=== PATIENT | male | born 1940 | race Caucasian/White ===

== ENCOUNTER 2016-10-10 08:57 | Outpatient (CLI) | payer MEDICARE | END 2016-10-10 08:58 | disposition home or self-care (01) | DX: E11.9 Type 2 diabetes mellitus without complications (principal) ==

== ENCOUNTER 2017-01-10 08:15 | Outpatient (CLI) | payer MEDICARE ==
[2017-01-10 11:06] LABS: BILIRUBIN,URINE NEGATIVE (NEGATIVE); PH,URINE 5.5 PH (5.0-7.5)
[2017-01-10 11:11] LABS: EOSINOPHILS # (AUTO) 0.1 10^3/uL (0.0-0.7); LYMPHOCYTES # (AUTO) 1.1 10^3/uL (1.5-3.5); MONOCYTES # (AUTO) 0.6 10^3/uL (0.0-1.0); NEUTROPHILS # (AUTO) 3.2 10^3/uL (1.5-6.6); RED CELL DISTRIBUTION WIDTH 13.1 % (12.0-15.0)
[2017-01-10 11:14] LABS: EOSINOPHILS % (AUTO) 1.5 %; HGB - HEMOGLOBIN 12.7 g/dL (14.0-18.0); LYMPHOCYTES % (AUTO) 21.5 %; MEAN CORPUSCULAR HEMOGLOBIN 31.8 pg (27.0-31.0); MEAN CORPUSCULAR HGB CONC 34.2 g/dL (32.0-36.0); MEAN CORPUSCULAR VOLUME 92.9 fL (80.0-94.0); MEAN PLATELET VOLUME 8.3 fL (7.4-11.4); MONOCYTES % (AUTO) 11.7 %; NEUTROPHILS % (AUTO) 64.3 %; NUCLEATED RED BLOOD CELLS AUTO 0.1 /100WBC; RED BLOOD COUNT 3.99 10^6/uL (4.70-6.10); UNCORRECTED WHITE BLOOD COUNT 4.9 x10^3/uL; WHITE BLOOD COUNT 4.9 x10^3/uL (4.8-10.8)
[2017-01-10 11:19] LABS: ALBUMIN/GLOBULIN RATIO 1.1 (1.0-2.2); BILIRUBIN,TOTAL 0.6 mg/dL (0.2-1.0); BUN - BLOOD UREA NITROGEN 19 mg/dL (6-20); CALCIUM 9.4 mg/dL (8.5-10.3); CARBON DIOXIDE - CO2 29 mmol/L (21-32); CHLORIDE 100 mmol/L (101-111); CHOL/HDL RATIO 2.7 (<5.0); CHOLESTEROL 118 mg/dL; CREATININE 0.9 mg/dL (0.6-1.2); GFR - MDRD 82 (>89); GLUCOSE 118 mg/dL (70-100); HDL CHOLESTEROL 43 mg/dL; LDL/HDL RATIO 1.3 (<3.6); POTASSIUM 4.2 mmol/L (3.5-5.0); SODIUM 136 mmol/L (135-145); TOTAL PROTEIN 7.6 g/dL (6.7-8.2); TRIGLYCERIDES 86 mg/dL; VLDL CHOLESTEROL 17 mg/dL
[2017-01-10 11:30] LABS: HEMOGLOBIN A1C 0.72 g/dL
[2017-01-10 11:32] LABS: WBC,URINE 0-3 /HPF (0-3)
[2017-01-10 11:33] LABS: UR CULTURE IF IND NOT INDICATED
== END 2017-01-10 08:16 | disposition home or self-care (01) ==
LOC: LAB.F 08:15
PROVIDERS: ATTEND Nurse Practitioner Family
DX: I10 Essential (primary) hypertension (principal); E11.9 Type 2 diabetes mellitus without complications
CPT/HCPCS: 36415; 80053; 80061; 81001; 82043; 82570; 83036; 84443; 85025; 87086

== ENCOUNTER 2017-01-14 10:35 | Outpatient (CLI) | payer MEDICARE ==
[2017-01-14 18:50] LABS: FERRITIN 235.2 ng/mL (23.9-336.2)
[2017-01-14 18:53] LABS: FOLATE 12.6 ng/mL (5.90 - >24.8)
[2017-01-14 19:08] LABS: IRON 56 ug/dL (45-182); TOTAL IRON BINDING CAPACITY 368 ug/dL (250-450); TRANSFERRIN 263 mg/dL (180-329)
== END 2017-01-14 10:36 ==
LOC: LAB.S 10:35
PROVIDERS: ATTEND Nurse Practitioner Family
DX: D64.9 Anemia, unspecified (principal)
CPT/HCPCS: 36415; 82607; 82728; 82746; 83540; 84466

== ENCOUNTER 2017-04-10 08:58 | Outpatient (CLI) | payer MEDICARE ==
[2017-04-10 11:36] LABS: BASOPHILS % (AUTO) 0.4 %; EOSINOPHILS # (AUTO) 0.1 10^3/uL (0.0-0.7); EOSINOPHILS % (AUTO) 1.6 %; HGB - HEMOGLOBIN 12.8 g/dL (14.0-18.0); LYMPHOCYTES # (AUTO) 1.4 10^3/uL (1.5-3.5); MONOCYTES # (AUTO) 0.7 10^3/uL (0.0-1.0); NEUTROPHILS # (AUTO) 3.7 10^3/uL (1.5-6.6)
[2017-04-10 11:40] LABS: HCT - HEMATOCRIT 37.3 % (42.0-52.0); LYMPHOCYTES % (AUTO) 23.6 %; MEAN CORPUSCULAR HEMOGLOBIN 32.1 pg (27.0-31.0); MEAN CORPUSCULAR HGB CONC 34.3 g/dL (32.0-36.0); MEAN CORPUSCULAR VOLUME 93.6 fL (80.0-94.0); MEAN PLATELET VOLUME 7.9 fL (7.4-11.4); NEUTROPHILS % (AUTO) 62.4 %; RED BLOOD COUNT 3.98 10^6/uL (4.70-6.10)
[2017-04-10 12:06] LABS: HEMOGLOBIN A1C 0.71 g/dL
== END 2017-04-10 08:59 | disposition home or self-care (01) ==
LOC: LAB.F 08:58
PROVIDERS: ATTEND Nurse Practitioner Family
DX: E11.9 Type 2 diabetes mellitus without complications (principal)
CPT/HCPCS: 36415; 83036; 85025

== ENCOUNTER 2017-04-12 08:16 | Outpatient (CLI) | payer MEDICARE ==
[2017-04-12 10:54] LABS: IRON 58 ug/dL (45-182); TOTAL IRON BINDING CAPACITY 356 ug/dL (250-450); TRANSFERRIN 254 mg/dL (180-329)
== END 2017-04-12 08:17 | disposition home or self-care (01) ==
LOC: LAB.F 08:16
PROVIDERS: ATTEND Nurse Practitioner Family
DX: D64.9 Anemia, unspecified (principal)
CPT/HCPCS: 36415; 82728; 83540; 84466

== ENCOUNTER 2017-07-15 10:13 | Outpatient (CLI) | payer MEDICARE ==
[2017-07-15 18:34] LABS: BASOPHILS % (AUTO) 0.5 %; EOSINOPHILS # (AUTO) 0.1 10^3/uL (0.0-0.7); EOSINOPHILS % (AUTO) 1.2 %; HCT - HEMATOCRIT 38.9 % (42.0-52.0); HGB - HEMOGLOBIN 12.8 g/dL (14.0-18.0); LYMPHOCYTES # (AUTO) 1.2 10^3/uL (1.5-3.5); LYMPHOCYTES % (AUTO) 20.3 %; MEAN CORPUSCULAR HEMOGLOBIN 30.3 pg (27.0-31.0); MEAN CORPUSCULAR HGB CONC 32.9 g/dL (32.0-36.0); MEAN CORPUSCULAR VOLUME 92.1 fL (80.0-94.0); MEAN PLATELET VOLUME 8.2 fL (7.4-11.4); MONOCYTES # (AUTO) 0.6 10^3/uL (0.0-1.0); NEUTROPHILS # (AUTO) 3.9 10^3/uL (1.5-6.6); NUCLEATED RED BLOOD CELLS AUTO 0.1 /100WBC; RED BLOOD COUNT 4.23 10^6/uL (4.70-6.10); RED CELL DISTRIBUTION WIDTH 12.6 % (12.0-15.0); UNCORRECTED WHITE BLOOD COUNT 5.9 x10^3/uL; WHITE BLOOD COUNT 5.9 x10^3/uL (4.8-10.8)
[2017-07-15 19:55] LABS: HEMOGLOBIN A1C 0.71 g/dL
== END 2017-07-15 10:14 | disposition home or self-care (01) ==
LOC: LAB.S 10:13
PROVIDERS: ATTEND Nurse Practitioner Family
DX: D64.9 Anemia, unspecified (principal); E11.9 Type 2 diabetes mellitus without complications
CPT/HCPCS: 36415; 82728; 83036; 85025

== ENCOUNTER 2017-11-04 08:00 | Outpatient (CLI) | payer MEDICARE ==
[2017-11-04 17:44] LABS: BASOPHILS % (AUTO) 0.6 %; EOSINOPHILS # (AUTO) 0.1 10^3/uL (0.0-0.7); EOSINOPHILS % (AUTO) 1.5 %; HGB - HEMOGLOBIN 12.1 g/dL (14.0-18.0); LYMPHOCYTES # (AUTO) 1.6 10^3/uL (1.5-3.5); LYMPHOCYTES % (AUTO) 28.2 %; MEAN CORPUSCULAR HEMOGLOBIN 29.4 pg (27.0-31.0); MEAN CORPUSCULAR HGB CONC 32.7 g/dL (32.0-36.0); MEAN PLATELET VOLUME 8.8 fL (7.4-11.4); MONOCYTES # (AUTO) 0.7 10^3/uL (0.0-1.0); MONOCYTES % (AUTO) 12.1 %; NEUTROPHILS # (AUTO) 3.2 10^3/uL (1.5-6.6); NEUTROPHILS % (AUTO) 57.6 %; PLT - PLATELET COUNT 211 10^3/uL (130-450); RED BLOOD COUNT 4.11 10^6/uL (4.70-6.10); RED CELL DISTRIBUTION WIDTH 13.5 % (12.0-15.0); WHITE BLOOD COUNT 5.5 x10^3/uL (4.8-10.8)
[2017-11-04 18:02] LABS: HB2 TOTAL 13.3 g/dL; HEMOGLOBIN A1C 1.01 g/dL; HEMOGLOBIN A1C % 9.1 % (4.6-6.2)
== END 2017-11-04 08:01 ==
LOC: LAB.S 08:00
PROVIDERS: ATTEND Nurse Practitioner Family
DX: E11.9 Type 2 diabetes mellitus without complications (principal); D64.9 Anemia, unspecified
CPT/HCPCS: 36415; 83036; 85025

== ENCOUNTER 2018-02-03 08:00 | Outpatient (CLI) | END 2018-02-03 08:01 | disposition home or self-care (01) ==

== ENCOUNTER 2018-02-04 09:50 | Outpatient (CLI) | payer MEDICARE | END 2018-02-04 09:51 | disposition home or self-care (01) | LOC: RT.S 09:50 | PROVIDERS: ATTEND Nurse Practitioner Family | DX: I49.9 Cardiac arrhythmia, unspecified (principal) | CPT/HCPCS: 93005 ==

== ENCOUNTER 2018-04-17 07:03 | Day surgery (SDC) | payer MEDICARE ==
[2018-04-17] MEDS ORDERED: LACTATED RINGERS 1,000 ML IV ONE ×2 (07:51→09:47)
[2018-04-17] MEDS ORDERED: LIDO GARGLE 30 ML BOTTLE ONE (08:15)
[2018-04-17] MEDS ORDERED: fentaNYL 250 MCG/5 ML VIAL IVP ONE (08:31)
[2018-04-17] MEDS ORDERED: MIDAZOLAM 2 MG/2 ML VIAL IVP ONE (08:31)
[2018-04-17] MEDS ORDERED: LIDO GARGLE 30 ML BOTTLE PO ONE (08:49)
[2018-04-17 10:45] VITALS: BP 114/73
== END 2018-04-17 07:04 | disposition home or self-care (01) ==
LOC: SDS 07:03
PROVIDERS: ATTEND Internal Medicine Gastroenterology
PROC: 0DBN8ZZ Excision of Sigmoid Colon, Via Natural or Artificial Opening Endoscopic (ICD-10-PCS; 2018-04-17)
PROC: 0DBP8ZZ Excision of Rectum, Via Natural or Artificial Opening Endoscopic (ICD-10-PCS; 2018-04-17)
PROC: 0DB98ZX Excision of Duodenum, Via Natural or Artificial Opening Endoscopic, Diagnostic (ICD-10-PCS; 2018-04-17)
PROC: 0DBK8ZX Excision of Ascending Colon, Via Natural or Artificial Opening Endoscopic, Diagnostic (ICD-10-PCS; principal; 2018-04-17 08:15)
PROC: 0DBM8ZZ Excision of Descending Colon, Via Natural or Artificial Opening Endoscopic (ICD-10-PCS; 2018-04-17 08:15)
DX: D50.9 Iron deficiency anemia, unspecified (principal); C18.2 Malignant neoplasm of ascending colon; D12.2 Benign neoplasm of ascending colon; D12.4 Benign neoplasm of descending colon; D12.5 Benign neoplasm of sigmoid colon; D12.8 Benign neoplasm of rectum; K44.9 Diaphragmatic hernia without obstruction or gangrene; F10.21 Alcohol dependence, in remission; E11.9 Type 2 diabetes mellitus without complications; I44.1 Atrioventricular block, second degree; I10 Essential (primary) hypertension; I25.10 Atherosclerotic heart disease of native coronary artery without angina pectoris; Z79.4 Long term (current) use of insulin; Z86.79 Personal history of other diseases of the circulatory system; Z79.899 Other long term (current) drug therapy; Z79.82 Long term (current) use of aspirin; Z87.891 Personal history of nicotine dependence
CPT/HCPCS: 36415; 43239; 45380; 45385; 82378; 82565; A9270; J3010; J7120

== ENCOUNTER 2018-04-18 11:08 | Outpatient (CLI) | payer MEDICARE ==
[2018-04-18] MEDS ORDERED: IOPAMIDOL-300 100 ML VIAL ONE (11:19)
[2018-04-18] MEDS ORDERED: IOPAMIDOL-300 50 ML VIAL ONE (11:19)
[2018-04-18] MEDS ORDERED: IOPAMIDOL-300 100 ML VIAL IVP ONE (12:35)
[2018-04-18] MEDS ORDERED: IOPAMIDOL-300 50 ML VIAL PO ONE (12:35)
--- NOTE | 2018-04-18 14:42 | CT Report ---
Reason: ASCENDING COLON CANCER Procedure Date: 04/18/2018 Accession Number: [id number] / [id number] Procedure: CT - Chest W/ CPT Code: FULL RESULT: EXAM: CT CHEST EXAM DATE: 04/18/2018 12:32 PM. CLINICAL HISTORY: ASCENDING COLON CANCER for staging. COMPARISONS: None. TECHNIQUE: Routine helical CT imaging was performed through the chest. IV contrast: 100 cc Isovue-300. Reconstructions: Coronal and sagittal. In accordance with CT protocol optimization, one or more of the following dose reduction techniques were utilized for this exam: automated exposure control, adjustment of mA and/or KV based on patient size, or use of iterative reconstructive technique. FINDINGS: Lungs/Pleura: Subpleural increased interstitial markings most marked left upper lobe. There is a small amount of nodular pleural thickening along the left major fissure 3: 26. No definite nodules, consolidation, or edema. Pulmonary vasculature is normal. No pericardial or pleural effusion. No pneumothorax. Mediastinum: Small mediastinal and hilar lymph nodes; for example 2:20. No pathologic adenopathy or masses. Prominent ascending aorta 4.2 cm in diameter. Bones: Degenerative change in the spine. Other: None. IMPRESSION: No evidence of metastatic disease chest CT. RADIA ADDENDUM: 04/18/18 14:43 Changes of chronic interstitial lung disease are present.
--- NOTE | 2018-04-18 14:58 | CT Report ---
Reason: ASCENDING COLONE CANCER Procedure Date: 04/18/2018 Accession Number: [id number] / [id number] Procedure: CT - Abdomen/Pelvis W/ CPT Code: FULL RESULT: EXAM: CT ABDOMEN AND PELVIS EXAM DATE: 04/18/2018 12:32 PM. CLINICAL HISTORY: ASCENDING COLON CANCER. COMPARISONS: None. TECHNIQUE: Routine helical CT imaging was performed through the abdomen and pelvis. IV contrast: 100 cc Isovue-300. enteric contrast: Yes. Reconstructions: Coronal and sagittal. In accordance with CT protocol optimization, one or more of the following dose reduction techniques were utilized for this exam: automated exposure control, adjustment of mA and/or KV based on patient size, or use of iterative reconstructive technique. FINDINGS: Liver: Normal. No masses. Gallbladder/Bile Ducts: Unremarkable. Spleen: Normal. Pancreas: Normal. Adrenal Glands: Normal. Kidneys: Right renal cyst 4.5 x 3.9 cm. No solid masses or hydronephrosis. Peritoneal Cavity/Bowel: There is increased soft tissue density involving the terminal ileum and cecum most likely corresponding to the colon cancer seen by colonoscopy this mass it measures approximately 5.7 x 4.3 cm axial dimension with a vertical extent of approximately 4.5 cm series 3 image 53, series 5 image 28. A few small periaortic lymph nodes are seen for example series 3 image 56 5 mm, anterior to the right psoas muscle 3:59 8 mm, between the aorta and inferior vena cava 3:39 7 mm. No free fluid or free air. Line diverticulosis most marked descending colon and sigmoid without diverticulitis. Slight nonspecific increased density to the mesentery. Pelvic Organs: Mild prostate prominence. Vasculature: No aneurysms or other significant abnormality. Bones: Degenerative change in the spine. No cyst or active lesion. Other: None. IMPRESSION: Soft tissue mass at the junction of the terminal ileum and cecum approximately 5.7 x 4.3 x 4.5 cm. Small scattered lymph nodes in the abdomen without pathologically enlarged nodes. Colonic diverticulosis without diverticulitis. Other nonspecific findings as above. RADIA
== END 2018-04-18 11:09 | disposition home or self-care (01) ==
LOC: DI 11:08
PROVIDERS: ATTEND Internal Medicine Gastroenterology
DX: C18.2 Malignant neoplasm of ascending colon (principal); K57.30 Diverticulosis of large intestine without perforation or abscess without bleeding
CPT/HCPCS: 71260; 74177; Q9967

== ENCOUNTER 2018-05-05 10:33 | Outpatient (CLI) | payer MEDICARE ==
[2018-05-05 18:15] LABS: BASOPHILS % (AUTO) 0.5 %; EOSINOPHILS # (AUTO) 0.1 10^3/uL (0.0-0.7); EOSINOPHILS % (AUTO) 1.6 %; HGB - HEMOGLOBIN 12.6 g/dL (14.0-18.0); LYMPHOCYTES # (AUTO) 1.1 10^3/uL (1.5-3.5); LYMPHOCYTES % (AUTO) 20.2 %; MEAN CORPUSCULAR HEMOGLOBIN 29.1 pg (27.0-31.0); MEAN CORPUSCULAR HGB CONC 33.1 g/dL (32.0-36.0); MEAN CORPUSCULAR VOLUME 87.8 fL (80.0-94.0); MEAN PLATELET VOLUME 8.1 fL (7.4-11.4); MONOCYTES # (AUTO) 0.6 10^3/uL (0.0-1.0); MONOCYTES % (AUTO) 11.8 %; NEUTROPHILS # (AUTO) 3.6 10^3/uL (1.5-6.6); NEUTROPHILS % (AUTO) 65.9 %; PLT - PLATELET COUNT 249 10^3/uL (130-450); RED BLOOD COUNT 4.34 10^6/uL (4.70-6.10); RED CELL DISTRIBUTION WIDTH 15.1 % (12.0-15.0); WHITE BLOOD COUNT 5.5 x10^3/uL (4.8-10.8)
[2018-05-05 18:23] LABS: INR 1.1 (0.8-1.2); PT - PROTHROMBIN TIME 12.9 secs (9.9-12.6)
[2018-05-05 18:37] LABS: ALBUMIN 4.1 g/dL (3.2-5.5); CALCIUM 9.5 mg/dL (8.5-10.3); CREATININE 0.9 mg/dL (0.6-1.2); TOTAL PROTEIN 8.2 g/dL (6.7-8.2)
== END 2018-05-05 10:34 | disposition home or self-care (01) ==
LOC: LAB.S 10:33
PROVIDERS: ATTEND Nurse Practitioner Family
DX: Z01.818 Encounter for other preprocedural examination (principal); C18.2 Malignant neoplasm of ascending colon
CPT/HCPCS: 36415; 80053; 85025; 85610

== ENCOUNTER 2018-05-08 09:45 | Outpatient (CLI) | payer MEDICARE | END 2018-05-08 09:46 | disposition home or self-care (01) | LOC: RT 09:45 | PROVIDERS: ATTEND Internal Medicine Cardiovascular Disease | DX: Z01.810 Encounter for preprocedural cardiovascular examination (principal); I10 Essential (primary) hypertension | CPT/HCPCS: 93005 ==

== ENCOUNTER 2018-05-13 09:34 | Inpatient (IN) | payer MEDICARE ==
[~2018-05-13 09:34] MED LIST: ceFAZolin 2 GM/50 ML 2 GM/50 ML BAG IV ONE; metroNIDAZOLE 500 MG/100 ML 500 MG/100 ML BAG ONE
--- NOTE | 2018-05-13 10:04 | ANESTHESIA ---
Pre-Anesthesia VS, & Labs - Diagnosis R Colon Cancer - Procedure R Laparoscopic Colectomy Height 5 ft 9 in Body Mass Index 23.1 - NPO >8 hours - Lab Results Lab results reviewed: Yes Home Medications and Allergies Home Medications: Ambulatory Orders Medication Instructions Recorded Confirmed Atorvastatin Calcium 80 mg PO QPM 01/20/16 05/12/18 Insulin Glargine,Hum.rec.anlog 16 unit SQ DAILY 01/20/16 05/12/18 [Lantus] Lisinopril 30 mg PO DAILY 01/20/16 05/12/18 Metformin HCl 1,000 mg PO BIDWM 01/20/16 05/12/18 Aspirin [Adult Aspirin] 81 mg PO DAILY 04/16/18 05/12/18 Atorvastatin Calcium 80 mg PO QPM 01/20/16 Insulin Glargine,Hum.rec.anlog [Lantus] 16 unit SQ DAILY 01/20/16 Lisinopril 30 mg PO DAILY 01/20/16 Metformin HCl 1,000 mg PO BIDWM 01/20/16 Aspirin [Adult Aspirin] 81 mg PO DAILY 04/16/18 Allergies/Adverse Reactions: Allergies Allergy/AdvReac Type Severity Reaction Status Date / Time Penicillins Allergy Unknown Verified 05/12/18 13:36 Anes History & Medical History - Anesthetic History Anesthesia Complications: reports: No previous complications Family history of Anesthesia Complications: Denies Family history of Malignant Hyperthermia: Denies - Medical History Cardiovascular: reports: Congestive heart failure, Hypertension, High cholesterol, Coronary artery disease, Other Pulmonary: reports: None Gastrointestinal: reports: None Urinary: reports: None Musculoskeletal: reports: None Endocrine/Autoimmune: reports: Type 2 diabetes Skin: reports: None Smoking Status: Former smoker - Surgical History General: Other Eyes Ears Nose Throat (EENT): Cataracts Exam General: Alert, Oriented x3, Cooperative, No acute distress Dental: WNL Mouth Openin Fingerbreadth Neck Mobility: Normal Mallampati classification: II Respiratory: Lungs clear, Normal breath sounds, No respiratory distress, No accessory muscle use Cardiovascular: Other (reg irreg, stable BP) Neurological: Normal speech Mental/Cognitive Status: Alert/Oriented X3 Cognitive Status: Within normal limits Plan Anesthesia Type: General Consent for Procedure(s) Verified and Reviewed: Yes Code Status: Attempt Resuscitation ASA classification: 3-Severe systemic disease Is this case an emergency?: No
[2018-05-13] MEDS ORDERED: LACTATED RINGERS 1,000 ML IV ONE ×3 (11:15→16:21)
[2018-05-13] MEDS ORDERED: BUPIVACAINE 0.5%-EPI 1:200000 PF 30 ML VIAL ONE (12:42)
[2018-05-13] MEDS ORDERED: BUPIVACAINE 0.5%-EPI 1:200000 PF 30 ML VIAL SUBQ ONE ×2 (13:14)
[2018-05-13] MEDS ORDERED: PROPOFOL 200 MG/20 ML VIAL IVP ONE (14:00)
[2018-05-13] MEDS ORDERED: ROCURONIUM 50 MG/5 ML VIAL IVP ONE (14:00)
[2018-05-13] MEDS ORDERED: ACETAMINOPHEN 1,000 MG/100 ML 100 ML IV ONE (14:00)
[2018-05-13] MEDS ORDERED: MIDAZOLAM 2 MG/2 ML VIAL IVP ONE (14:00)
[2018-05-13] MEDS ORDERED: fentaNYL 250 MCG/5 ML VIAL IVP ONE (14:00)
[2018-05-13] MEDS ORDERED: LIDOCAINE-MPF 2% 5 ML VIAL IM ONE (14:00)
[2018-05-13] MEDS ORDERED: ePHEDrine 50 MG/ML VIAL IVP ONE (14:00)
[2018-05-13] MEDS ORDERED: PHENYLEPHRINE 50 MG/5 ML VIAL IV ONE (14:00)
[2018-05-13] MEDS ORDERED: GLYCOPYRROLATE 1 MG/5 ML VIAL IVP ONE (14:00)
[2018-05-13] MEDS ORDERED: ONDANSETRON 4 MG/2 ML VIAL IVP ONE (14:00)
[2018-05-13] MEDS ORDERED: NEOSTIGMINE 1 MG/1 ML 10 ML MDV IVP ONE (14:00)
[2018-05-13] MEDS ORDERED: DEXAMETHASONE 4 MG/ML VIAL IVP ONE (14:00)
[2018-05-13] MEDS ORDERED: KETOROLAC 15 MG/ML VIAL IVP PRN (16:06)
[2018-05-13] MEDS ORDERED: ONDANSETRON 4 MG/2 ML VIAL IVP PRN (16:07)
--- NOTE | 2018-05-13 16:22 | OPERATIVE REPORT ---
Operative Report - General Admit Date: 05/13/18 Procedure Date: 05/13/18 Planned Procedure: Laparoscopic assisted Right colectomy Pre-Op Diagnosis: Adenocarcinoma of the ascending colon Procedure Performed: Laparoscopic Assisted Right Colectomy Post Op Diagnosis: Same - Procedure Note Primary Surgeon: Dash Marrufo MD FACS Secondary Surgeon: Jono Castellano MD FACS Anesthesia Provider: Oliver Gatica CRNA Anesthesia Technique: General ET tube Pathology: Right colon IV Fluids (mL): 1,600 Estimated Blood Loss (mL): 25 Urine Output (mL): 600 Complications: None
--- NOTE | 2018-05-13 16:51 | CONSULTATION NOTE ---
Referring Provider Name of Referring Provider:: Dash Marrufo MD Consult Date: 05/13/18 Chief Complaint - Chief Complaint Chief Complaint: Post op management of DM, HTN, hx of CHF History of Present Illness - Admitted From Admitted From:: OR - History Obtained From Records Reviewed: [facility] History obtained from: Dr. Marrufo Exam Limitations: none - History of Present Illness HPI Comment/Other: The patient is a 78-year-old white male who had a colonoscopy earlier in April and was found to have a colon cancer and underwent a subtotal colectomy today via laparoscopic surgery. Since he has a preoperative diagnosis of hypertension, type 2 diabetes mellitus, coronary artery disease, alcoholic cardiomyopathy, and COPD. General surgery would like us to manage those problems in the postoperative setting. He was recently seen by his senior management consultant, Filippo Szymanski, and had risk factor analysis. Patient was felt stable enough to go to OR. The surgery has been uneventful. In the postoperative setting there is been no problems. The been no arrhythmias, no complaints of angina. Dr. Marrufo his plan is to start feeding the patient today for clear liquids, advance of diet and hopefully be out of here in the next day or 2. History - Past Medical History Cardiovascular: reports: Hypertension, High cholesterol, Coronary artery disease (nonobstructive), Other Respiratory: reports: None Endocrine/Autoimmune: reports: Type 2 diabetes GI: reports: None : reports: Renal insuffiency (Stage III CKD) HEENT: reports: Other (Cataracts) Psych: reports: None Musculoskeletal: reports: None Derm: reports: None MRSA Hx?: No - Past Surgical History General: reports: Colonoscopy, Other (laparascopic assisted Right hemicolectomy 05/13/18, umbilical hernia repair in 2004) HEENT: reports: Cataracts - Family & Social History Family History Comment/Other: Mom at age 70 of complications of a stroke. She also had an AK at age 35 and survived breast cancer. Dad at age 77 of lymphoma. 2 sisters. They are healthy. There is no high blood pressure, canc er, diabetes, heart attack, stroke. 1 daughter. Completely healthy with no past medical history that significant Living arrangement: At home Living Situation: Alone Social History Notes: [place]. 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 Came to the [place] at the age of 36 with his . They have been for many years now. 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 Lives in his own home. Started smoking at the age of 16 and stop smoking at the age of 36. 1 pack/day. Did have a problem with alcohol. Used to drink anywhere from 6-9 beers a day. Stopped drinking 2 years ago when he was diagnosed with his alcoholic cardiomyopathy. No history of seizures or withdrawal. Denies any other form of recreational substance abuse. - Substance History Use: Uses substance without health or social issues: NONE Abuse: Recurrent use of substance despite neg consequences: NONE Dependence: Experiences withdrawal or developed tolerances: NONE - POLST Patient has POLST: No POLST Status: Full Code Meds/Allgy - Home Medications Home Medications: Ambulatory Orders Medication Instructions Recorded Confirmed Atorvastatin Calcium 80 mg PO QPM 01/20/16 05/13/18 Insulin Glargine,Hum.rec.anlog 16 unit SQ DAILY 01/20/16 05/13/18 [Lantus] Lisinopril 30 mg PO DAILY 01/20/16 05/13/18 Metformin HCl 1,000 mg PO BIDWM 01/20/16 05/13/18 Aspirin [Adult Aspirin] 81 mg PO DAILY 04/16/18 05/13/18 - Allergies Allergies/Adverse Reactions: Allergies Allergy/AdvReac Type Severity Reaction Status Date / Time Penicillins Allergy Unknown Verified 05/12/18 13:36 Review of Systems - Constitutional Constitutional: reports: Weight loss (Weight loss with iron deficiency anemia was why he ended up having a colonoscopy and subsequent diagnosis of colon cancer.). denies: Fatigue, Fever, Chills, Malaise, Weakness, Poor appetite, Weight gain - Eyes Eyes: denies: Pain, Irritation, Amaurosis, Blurred vision, Field loss, Vision loss - Ears, Nose & Throat Ears, Nose & Throat: denies: Ear pain, Hearing loss, Hearing aids, Nasal congestion, Postnasal drainage, Dentures - Cardiovascular Cariovascular: denies: Irregular heart rate, Palpitations, Chest pain, Edema, Exertional dyspnea, Decr. exercise tolerance, Orthopnea - Respiratory Respiratory: denies: Cough, Sputum production, Wheezing, Snoring, Orthopnea, SOB at rest, SOB with exertion - Gastrointestinal Gastrointestinal: denies: Abdominal pain, Abdominal distention, Constipation, Diarrhea, Change in bowel habits - Genitourinary Genitourinary: denies: Frequency - Musculoskeletal Musculoskeletal: denies: Muscle pain, Back pain, Gout, Joint pain - Integumentary Integumentary: denies: Rash, Lesions, Pigment changes - Neurological Neurological: reports: Memory problems (Associated with low blood sugars a couple of years ago). denies: General weakness, Focal weakness, Headache, Dizziness, Seizures, Incoordination, Slurred speech - Psychiatric Psychiatric: denies: Depression, Anxiety, Suicidal, Delusions - Endocrine Endocrine: denies: Polyuria, Polydypsia, Polyphagia - Hematologic/Lymphatic Hematologic/Lymphatic: denies: Anemia - All Other Systems All Other Systems: reports: Other (From a functional standpoint he lives alone. He is still independent with regards to driving his truck, cleaning his house, doing yard work. Cleans his own home. Gets up in the morning and has no difficulty cooking for himself, taking a bath. Daughter and grandchildren live nearby.) Exam - Vital Signs Reviewed Vital Signs: Yes Vital Signs: Vital Signs x48h Temp Pulse Resp BP Pulse Ox 05/13/18 16:44 99 19 102/59 L 99 05/13/18 16:30 92 19 112/68 100 05/13/18 16:25 36.7 C 93 18 109/64 99 05/13/18 16:20 93 18 93/54 L 98 05/13/18 16:15 90 14 103/55 L 100 05/13/18 16:10 37.2 C 94 10 L 93/56 L 99 05/13/18 10:53 36.8 C 90 16 128/68 96 - Physical Exam General Appearance: positive: No acute distress, Alert, Other (5 foot 9, 71.8 kg. White male with sims, mustache, tired and a little vague in his history in the immediate postoperative setting. He says is been a long day.) Eyes Bilateral: positive: PERRL ENT: positive: Pharynx nml Neck: positive: No JVD. negative: Stiff neck, Carotid bruit Respiratory: negative: Chest non-tender, Wheezes, Rales, Rhonchi Cardiovascular: positive: Regular rate & rhythm. negative: Systolic murmur, Gallop/S4, Friction rub Peripheral Pulses: positive: 1+ Abdomen: positive: Other (Hypoactive bowel sounds). negative: Guarding, Rebound, Hepatomegaly, Splenomegaly Skin: positive: Warm, Dry Extremities: positive: Non-tender, Full ROM Neurologic/Psychiatric: positive: Oriented x3, CN's nml (2-12), Motor nml Conclusion/Plan - Diagnosis Diagnosis: 1. Controlled type 2 diabetes mellitus, without complication, on long-term use of insulin. I will resume half of his Lantus dose. He usually takes 12 units at night. He is to start clear liquids and advance as tolerated. Once I know he was not at risk for hypoglycemia we will then increase his Lantus to his usual dose. We will also do sliding scale before meals. 2. History of alcoholic cardiomyopathy. Current exam is without JVD, crackles, edema or orthopnea. Will resume his usual medications of carvedilol and diuretic. 3. Hypertension. Essential. Controlled. Resume usual medications. Monitor every shift until patient leaves and adjust medications as needed. 4. DVT prophylaxis will be ZORAN murillo. Full CODE STATUS - Lab Results Lab results reviewed: Yes
[2018-05-13] MEDS ORDERED: LACTATED RINGERS 1,000 ML IV SCH (17:00)
[2018-05-13] MEDS: ACETAMINOPHEN 1,000 MG/100 ML 100 ML IV SCH ×2 (17:51→22:45)
--- NOTE | 2018-05-13 20:57 | OPERATIVE REPORT ---
DATE OF SERVICE: 05/13/2018 Physician: Dash Marrufo MD PREOPERATIVE DIAGNOSIS: Adenocarcinoma of the ascending colon. POSTOPERATIVE DIAGNOSIS: Adenocarcinoma of the ascending colon. PROCEDURE PERFORMED: Laparoscopic-assisted right colectomy. ANESTHESIA: General endotracheal by Oliver Gatica CRNA. SURGEON: Dash Marrufo MD. ADULT SERVICES LIBRARIAN: Jono Castellano MD. ESTIMATED BLOOD LOSS: 25 mL; replaced 1600 mL crystalloid. COMPLICATIONS: None. FINDINGS: A mass was present in the ascending colon adjacent to the ileocecal valve. There was no gross evidence of transmural invasion including no evidence of invasion of adjacent organs. There was no gross evidence of mesenteric lymphadenopathy, ascites, carcinomatosis or liver metastasis. The visualized portions of the stomach, duodenum, liver, gallbladder, remainder of small bowel and colon appeared normal. INDICATIONS: Lorne Zambrano is a 78-year-old gentleman who was noted to have a tumor in the proximal ascending colon on evaluation of iron deficiency anemia. Biopsy showed adenocarcinoma. Metastatic workup was negative. He was advised to undergo a laparoscopic-assisted right colectomy for definitive surgical treatment of his condition. TECHNIQUE: After informed consent and mechanical and antibiotic bowel preparation, the patient was taken to the operating room. He was placed under general endotracheal anesthesia. Preoperative preparation included application of sequential calf compression boots, insertion of a Martinez catheter and orogastric tube, and administration of 2 grams of cefazolin and 500 mg of metronidazole intravenously within an hour of the incision. His abdomen was clipped and prepared with ChloraPrep solution and draped in the usual sterile fashion. An infraumbilical incision was made approximately 1 cm in length and carried down through the layers of the abdominal wall until the peritoneum was identified and entered sharply. A 10 mm Brittney cannula was inserted. Pneumoperitoneum was achieved with carbon dioxide. Three additional ports were placed in the left upper quadrant, left mid abdomen and left lower quadrant. Instruments were passed. The white line of Toldt was lysed with the LigaSure device and the right colon was mobilized medially. Adhesions from the appendix and terminal ileum to the retroperitoneum were lysed in a similar fashion, freeing up the ileocecal valve and terminal ileum. The right colon mesentery was then exposed and the ileocolic vessels were exposed and isolated near the base of the mesentery where the artery and vein were ligated and divided en bloc with the endoscopic 45 mm linear cutting stapling device. The pneumoperitoneum was allowed to escape and the Brittney cannula was removed. The midline incision was enlarged for a total length of approximately 7 cm, which allowed placement of a GelPort and then using a hand-assisted technique, the hepatic flexure of the colon was mobilized using the LigaSure. After pneumoperitoneum is reestablished, the gastrocolic ligament was divided to the level of the midline and the remaining attachments of the right colon and the retroperitoneum were bluntly and sharply divided, allowing the right colon to be brought up through the hand port. The pneumoperitoneum was allowed to escape. The right colon was exteriorized in an extracorporeal resection, and anastomosis was performed dividing the omentum at the level of the mid transverse colon, completing the mesenteric division at its base using the LigaSure, and then picking points of bowel reanastomosis involving the mid transverse colon and the terminal ileum. The antimesenteric borders were aligned. Openings were made in the antimesenteric borders of each hand using the LILIAN equivalent 75 mm stapler. The common channel was created. The right colon was then amputated using the stapling device. In a similar fashion, which also excised the common channel. The tissue was sent for pathologic evaluation. All staple lines were seen to be hemostatic and viable without excessive tension. Omentum was tacked over the staple line. The anastomosis was returned to the abdominal cavity. Pneumoperitoneum was reestablished. The abdominal cavity was copiously irrigated with saline solution, following which pneumoperitoneum was allowed to escape. Ports were removed and then incisions were closed using doubled #1 PDS suture to reapproximate the midline fascia, followed by 3-0 Vicryl for subcutaneous tissues and alda for the skin. Alda were also used to close the remaining port sites. A total of 30 mL of 0.5% Marcaine with epinephrine was infiltrated into the incisions to assist in postoperative analgesia. Telfa, and Tegaderm dressings were applied. Anesthesia was terminated and patient transferred to the recovery room in satisfactory condition. Sponge and needle counts were correct x2. No drains were used. TD: 05/13/2018 16:32 VINCE
[2018-05-13] MEDS ORDERED: INSULIN GLARGINE 300 UNIT/3 ML PEN SUBQ SCH (21:00)
[2018-05-13] MEDS: INSULIN ASPART 300 UNIT/3 ML PEN SUBQ SCH (21:24)
[2018-05-13] MEDS: ATORVASTATIN 40 MG TABLET PO SCH (21:25)
[2018-05-14] MEDS: ACETAMINOPHEN 1,000 MG/100 ML 100 ML IV SCH ×5 (04:21→23:35)
[2018-05-14 05:46] LABS: BASOPHILS % (AUTO) 0.1 %; HGB - HEMOGLOBIN 10.5 g/dL (14.0-18.0); LYMPHOCYTES # (AUTO) 0.8 10^3/uL (1.5-3.5); LYMPHOCYTES % (AUTO) 7.3 %; MEAN CORPUSCULAR HEMOGLOBIN 29.3 pg (27.0-31.0); MEAN CORPUSCULAR HGB CONC 33.5 g/dL (32.0-36.0); MEAN CORPUSCULAR VOLUME 87.6 fL (80.0-94.0); MEAN PLATELET VOLUME 7.6 fL (7.4-11.4); MONOCYTES # (AUTO) 0.9 10^3/uL (0.0-1.0); MONOCYTES % (AUTO) 8.9 %; NEUTROPHILS # (AUTO) 8.7 10^3/uL (1.5-6.6); NEUTROPHILS % (AUTO) 83.7 %; PLT - PLATELET COUNT 185 10^3/uL (130-450); RED BLOOD COUNT 3.59 10^6/uL (4.70-6.10); RED CELL DISTRIBUTION WIDTH 14.7 % (12.0-15.0); WHITE BLOOD COUNT 10.3 x10^3/uL (4.8-10.8)
[2018-05-14 05:57] LABS: ALBUMIN 3.2 g/dL (3.2-5.5); BILIRUBIN,TOTAL 0.7 mg/dL (0.2-1.0); CALCIUM 8.5 mg/dL (8.5-10.3); CREATININE 1.2 mg/dL (0.6-1.2); TOTAL PROTEIN 6.4 g/dL (6.7-8.2)
[2018-05-14] MEDS ORDERED: SODIUM CHLORIDE FLUSH 0.9% 10 ML SYRINGE ONE ×5 (06:04→23:32)
[2018-05-14 06:18] LABS: HB2 TOTAL 10.3 g/dL; HEMOGLOBIN A1C 0.48 g/dL; HEMOGLOBIN A1C % 6.4 % (4.6-6.2)
[2018-05-14] MEDS: INSULIN ASPART 300 UNIT/3 ML PEN SUBQ SCH ×6 (08:31→20:45)
--- NOTE | 2018-05-14 08:39 | PROVIDER PROGRESS NOTE ---
Subjective - Prog Note Date Prog Note Date: 05/14/18 Prog Note Time: 08:36 - Subjective Pt reports feeling: Improved Subjective: Overnight he did well. Glucose did come up to 223 yesterday. He did get his Lantus 8 units last night. 1 unit of subcu short acting before breakfast this morning. He is still on a clear liquid diet and has not been advanced. The patient himself denies chest pain, palpitations, shortness of breath. His only discomfort is incisional site pain Current Medications - Current Medications Current Medications: Active Medications Aspirin (Ecotrin) 81 mg PO DAILY ANNA Atorvastatin Calcium (Lipitor) 80 mg PO QPM ANNA Last Admin: 05/13/18 21:25 Dose: 80 mg Enoxaparin Sodium (Lovenox) 40 mg SUBQ DAILY PENDING SALE TO [facility] Lactated Ringer's (Lr) 1,000 mls @ 50 mls/hr IV .Q20H ANNA Last Infusion: 05/14/18 04:39 Dose: 50 mls/hr Acetaminophen (Ofirmev) 100 mls @ 400 mls/hr IV Q6H ANNA Last Infusion: 05/14/18 04:36 Dose: Infused Insulin Aspart (Novolog) 1 - 5 unit SUBQ 0800,1200,1700,2100 ANNA; Protocol Last Admin: 05/14/18 08:31 Dose: 1 unit Insulin Aspart (Novolog) 2 unit SUBQ TIDWM ANNA Insulin Glargine (Lantus Solostar) 12 unit SUBQ QPM ANNA Ketorolac Tromethamine (Toradol Inj (15mg)) 15 mg IVP Q6HR PRN PRN Reason: PAIN Stop: 05/18/18 16:05 Lisinopril (Zestril) 30 mg PO DAILY PENDING SALE TO [facility] Ondansetron HCl (Zofran Inj) 4 mg IVP Q6HR PRN PRN Reason: Nausea / Vomiting Atorvastatin Calcium 80 mg PO QPM 01/20/16 Insulin Glargine,Hum.rec.anlog [Lantus] 16 unit SQ DAILY 01/20/16 Lisinopril 30 mg PO DAILY 01/20/16 Metformin HCl 1,000 mg PO BIDWM 01/20/16 Aspirin [Adult Aspirin] 81 mg PO DAILY 04/16/18 Objective - Vital Signs/Intake & Output Reviewed Vital Signs: Yes Vital Signs: Vital Signs x48h Temp Pulse Resp BP Pulse Ox 05/14/18 08:11 37.0 C 89 16 137/68 H 100 05/14/18 04:24 36.4 C L 89 16 122/59 L 99 Intake & Output: Intake & Output 05/11/18 05/12/18 05/13/18 05/14/18 23:59 23:59 23:59 23:59 Intake Total 2150 825 Output Total 825 350 Balance 1325 475 - Lab Results Fish Bones: 05/14/18 05:00 05/14/18 05:00 Other Labs: Lab Results x24hrs 05/14/18 05/14/18 05/14/18 Range/Units 07:41 05:00 05:00 WBC 10.3 (4.8-10.8) x10^3/uL RBC 3.59 L (4.70-6.10) 10^6/uL Hgb 10.5 L (14.0-18.0) g/dL Hct 31.5 L (42.0-52.0) % MCV 87.6 (80.0-94.0) fL MCH 29.3 (27.0-31.0) pg MCHC 33.5 (32.0-36.0) g/dL RDW 14.7 (12.0-15.0) % Plt Count 185 (130-450) 10^3/uL MPV 7.6 (7.4-11.4) fL Neut # (Auto) 8.7 H (1.5-6.6) 10^3/uL Lymph # (Auto) 0.8 L (1.5-3.5) 10^3/uL [place] # (Auto) 0.9 (0.0-1.0) 10^3/uL Eos # (Auto) 0.0 (0.0-0.7) 10^3/uL Baso # (Auto) 0.0 (0.0-0.1) 10^3/uL Absolute Nucleated RBC 0.01 x10^3/uL Nucleated RBC % 0.1 /100WBC Sodium 138 (135-145) mmol/L Potassium 4.3 (3.5-5.0) mmol/L Chloride 101 (101-111) mmol/L Carbon Dioxide 26 (21-32) mmol/L Anion Gap 11.0 (6-13) BUN 19 (6-20) mg/dL Creatinine 1.2 (0.6-1.2) mg/dL Estimated GFR (MDRD) 59 L (>89) Glucose 177 H (70-100) mg/dL POC Whole Bld Glucose 149 H (70 - 100) mg/dL Glycated Hemoglobin (4.6-6.2) % Estim Average Glucose (70-100) Calcium 8.5 (8.5-10.3) mg/dL Total Bilirubin 0.7 (0.2-1.0) mg/dL AST 22 (10-42) IU/L ALT 14 (10-60) IU/L Alkaline Phosphatase 39 L (42-121) IU/L Total Protein 6.4 L (6.7-8.2) g/dL Albumin 3.2 (3.2-5.5) g/dL Globulin 3.2 (2.1-4.2) g/dL Albumin/Globulin Ratio 1.0 (1.0-2.2) 05/14/18 05/13/18 05/13/18 Range/Units 05:00 23:40 21:19 WBC (4.8-10.8) x10^3/uL RBC (4.70-6.10) 10^6/uL Hgb (14.0-18.0) g/dL Hct (42.0-52.0) % MCV (80.0-94.0) fL MCH (27.0-31.0) pg MCHC (32.0-36.0) g/dL RDW (12.0-15.0) % Plt Count (130-450) 10^3/uL MPV (7.4-11.4) fL Neut # (Auto) (1.5-6.6) 10^3/uL Lymph # (Auto) (1.5-3.5) 10^3/uL [place] # (Auto) (0.0-1.0) 10^3/uL Eos # (Auto) (0.0-0.7) 10^3/uL Baso # (Auto) (0.0-0.1) 10^3/uL Absolute Nucleated RBC x10^3/uL Nucleated RBC % /100WBC Sodium (135-145) mmol/L Potassium (3.5-5.0) mmol/L Chloride (101-111) mmol/L Carbon Dioxide (21-32) mmol/L Anion Gap (6-13) BUN (6-20) mg/dL Creatinine (0.6-1.2) mg/dL Estimated GFR (MDRD) (>89) Glucose (70-100) mg/dL POC Whole Bld Glucose 223 H 222 H (70 - 100) mg/dL Glycated Hemoglobin 6.4 H (4.6-6.2) % Estim Average Glucose 137 H (70-100) Calcium (8.5-10.3) mg/dL Total Bilirubin (0.2-1.0) mg/dL AST (10-42) IU/L ALT (10-60) IU/L Alkaline Phosphatase (42-121) IU/L Total Protein (6.7-8.2) g/dL Albumin (3.2-5.5) g/dL Globulin (2.1-4.2) g/dL Albumin/Globulin Ratio (1.0-2.2) 05/13/18 05/13/18 05/13/18 Range/Units 17:39 16:11 11:18 WBC (4.8-10.8) x10^3/uL RBC (4.70-6.10) 10^6/uL Hgb (14.0-18.0) g/dL Hct (42.0-52.0) % MCV (80.0-94.0) fL MCH (27.0-31.0) pg MCHC (32.0-36.0) g/dL RDW (12.0-15.0) % Plt Count (130-450) 10^3/uL MPV (7.4-11.4) fL Neut # (Auto) (1.5-6.6) 10^3/uL Lymph # (Auto) (1.5-3.5) 10^3/uL [place] # (Auto) (0.0-1.0) 10^3/uL Eos # (Auto) (0.0-0.7) 10^3/uL Baso # (Auto) (0.0-0.1) 10^3/uL Absolute Nucleated RBC x10^3/uL Nucleated RBC % /100WBC Sodium (135-145) mmol/L Potassium (3.5-5.0) mmol/L Chloride (101-111) mmol/L Carbon Dioxide (21-32) mmol/L Anion Gap (6-13) BUN (6-20) mg/dL Creatinine (0.6-1.2) mg/dL Estimated GFR (MDRD) (>89) Glucose (70-100) mg/dL POC Whole Bld Glucose 190 H 163 H 143 H (70 - 100) mg/dL Glycated Hemoglobin (4.6-6.2) % Estim Average Glucose (70-100) Calcium (8.5-10.3) mg/dL Total Bilirubin (0.2-1.0) mg/dL AST (10-42) IU/L ALT (10-60) IU/L Alkaline Phosphatase (42-121) IU/L Total Protein (6.7-8.2) g/dL Albumin (3.2-5.5) g/dL Globulin (2.1-4.2) g/dL Albumin/Globulin Ratio (1.0-2.2) ABX Reporting Has patient been on IV antibiotics over the past 48 hours?: Yes Assessment/Plan - Problem List (1) Controlled type 1 diabetes mellitus without complication, with long-term current use of insulin Impression: This is Type 2 DM, not type 1. Dr. Marrufo had an interesting discussion about tight glucose control. He would like to see his patients at less than 180. Will add 2 units of fixed dose schedule insulin before each meal, increase his Lantus to 12. (2) HTN (hypertension) Impression: Medication is being held if systolic is less than 110. So far blood pressure stable and controlled. Qualifiers: Hypertension type: essential hypertension Qualified Code(s): I10 - Essential (primary) hypertension
--- NOTE | 2018-05-14 08:41 | PROVIDER PROGRESS NOTE ---
Subjective - General Admit Date: 05/13/18 Procedure Date: 05/13/18 Post Op Days: 1 Procedure Performed: laparsocopic assisted right colectomy - Review of Systems Wound/Incisions: positive: Dressing dry and intact General: positive: No symptoms HEENT: positive: No symptoms Pulmonary: positive: No symptoms Cardiovascular: positive: No symptoms Gastrointestinal: positive: No symptoms Genitourinary: positive: No symptoms Musculoskeletal: positive: No symptoms Skin: positive: No symptoms All Other Systems: positive: Other (From a functional standpoint he lives alone. He is still independent with regards to driving his truck, cleaning his house, doing yard work. Cleans his own home. Gets up in the morning and has no difficulty cooking for himself, taking a bath. Daughter and grandchildren live nearby.) - Other Other Information/Narrative: Feels well, Minimal discomfort controlled with IV acetaminophen; no N/V, tolerating clear liquids well so far. Objective - Patient Data Reviewed Vital Signs: Yes Vital Signs: Vital Signs x48h Temp Pulse Resp BP Pulse Ox 05/14/18 08:11 37.0 C 89 16 137/68 H 100 05/14/18 04:24 36.4 C L 89 16 122/59 L 99 Weight: Weight 05/12/18 05/13/18 05/14/18 23:59 23:59 23:59 Weight (kg) 71.8 kg Intake & Output: Intake and Output Totals x24h 05/12/18 05/13/18 05/14/18 23:59 23:59 23:59 Intake Total 2150 825 Output Total 825 350 Balance 1325 475 - Lab Results Lab Results: 05/14/18 05:00 05/14/18 05:00 Other Lab Results: Lab Results x24hrs 05/14/18 05/14/18 05/14/18 Range/Units 07:41 05:00 05:00 WBC 10.3 (4.8-10.8) x10^3/uL RBC 3.59 L (4.70-6.10) 10^6/uL Hgb 10.5 L (14.0-18.0) g/dL Hct 31.5 L (42.0-52.0) % MCV 87.6 (80.0-94.0) fL MCH 29.3 (27.0-31.0) pg MCHC 33.5 (32.0-36.0) g/dL RDW 14.7 (12.0-15.0) % Plt Count 185 (130-450) 10^3/uL MPV 7.6 (7.4-11.4) fL Neut # (Auto) 8.7 H (1.5-6.6) 10^3/uL Lymph # (Auto) 0.8 L (1.5-3.5) 10^3/uL [place] # (Auto) 0.9 (0.0-1.0) 10^3/uL Eos # (Auto) 0.0 (0.0-0.7) 10^3/uL Baso # (Auto) 0.0 (0.0-0.1) 10^3/uL Absolute Nucleated RBC 0.01 x10^3/uL Nucleated RBC % 0.1 /100WBC Sodium 138 (135-145) mmol/L Potassium 4.3 (3.5-5.0) mmol/L Chloride 101 (101-111) mmol/L Carbon Dioxide 26 (21-32) mmol/L Anion Gap 11.0 (6-13) BUN 19 (6-20) mg/dL Creatinine 1.2 (0.6-1.2) mg/dL Estimated GFR (MDRD) 59 L (>89) Glucose 177 H (70-100) mg/dL POC Whole Bld Glucose 149 H (70 - 100) mg/dL Glycated Hemoglobin (4.6-6.2) % Estim Average Glucose (70-100) Calcium 8.5 (8.5-10.3) mg/dL Total Bilirubin 0.7 (0.2-1.0) mg/dL AST 22 (10-42) IU/L ALT 14 (10-60) IU/L Alkaline Phosphatase 39 L (42-121) IU/L Total Protein 6.4 L (6.7-8.2) g/dL Albumin 3.2 (3.2-5.5) g/dL Globulin 3.2 (2.1-4.2) g/dL Albumin/Globulin Ratio 1.0 (1.0-2.2) 05/14/18 05/13/18 05/13/18 Range/Units 05:00 23:40 21:19 WBC (4.8-10.8) x10^3/uL RBC (4.70-6.10) 10^6/uL Hgb (14.0-18.0) g/dL Hct (42.0-52.0) % MCV (80.0-94.0) fL MCH (27.0-31.0) pg MCHC (32.0-36.0) g/dL RDW (12.0-15.0) % Plt Count (130-450) 10^3/uL MPV (7.4-11.4) fL Neut # (Auto) (1.5-6.6) 10^3/uL Lymph # (Auto) (1.5-3.5) 10^3/uL [place] # (Auto) (0.0-1.0) 10^3/uL Eos # (Auto) (0.0-0.7) 10^3/uL Baso # (Auto) (0.0-0.1) 10^3/uL Absolute Nucleated RBC x10^3/uL Nucleated RBC % /100WBC Sodium (135-145) mmol/L Potassium (3.5-5.0) mmol/L Chloride (101-111) mmol/L Carbon Dioxide (21-32) mmol/L Anion Gap (6-13) BUN (6-20) mg/dL Creatinine (0.6-1.2) mg/dL Estimated GFR (MDRD) (>89) Glucose (70-100) mg/dL POC Whole Bld Glucose 223 H 222 H (70 - 100) mg/dL Glycated Hemoglobin 6.4 H (4.6-6.2) % Estim Average Glucose 137 H (70-100) Calcium (8.5-10.3) mg/dL Total Bilirubin (0.2-1.0) mg/dL AST (10-42) IU/L ALT (10-60) IU/L Alkaline Phosphatase (42-121) IU/L Total Protein (6.7-8.2) g/dL Albumin (3.2-5.5) g/dL Globulin (2.1-4.2) g/dL Albumin/Globulin Ratio (1.0-2.2) 10/02/18 10/02/18 10/02/18 Range/Units 17:39 16:11 11:18 WBC (4.8-10.8) x10^3/uL RBC (4.70-6.10) 10^6/uL Hgb (14.0-18.0) g/dL Hct (42.0-52.0) % MCV (80.0-94.0) fL MCH (27.0-31.0) pg MCHC (32.0-36.0) g/dL RDW (12.0-15.0) % Plt Count (130-450) 10^3/uL MPV (7.4-11.4) fL Neut # (Auto) (1.5-6.6) 10^3/uL Lymph # (Auto) (1.5-3.5) 10^3/uL [place] # (Auto) (0.0-1.0) 10^3/uL Eos # (Auto) (0.0-0.7) 10^3/uL Baso # (Auto) (0.0-0.1) 10^3/uL Absolute Nucleated RBC x10^3/uL Nucleated RBC % /100WBC Sodium (135-145) mmol/L Potassium (3.5-5.0) mmol/L Chloride (101-111) mmol/L Carbon Dioxide (21-32) mmol/L Anion Gap (6-13) BUN (6-20) mg/dL Creatinine (0.6-1.2) mg/dL Estimated GFR (MDRD) (>89) Glucose (70-100) mg/dL POC Whole Bld Glucose 190 H 163 H 143 H (70 - 100) mg/dL Glycated Hemoglobin (4.6-6.2) % Estim Average Glucose (70-100) Calcium (8.5-10.3) mg/dL Total Bilirubin (0.2-1.0) mg/dL AST (10-42) IU/L ALT (10-60) IU/L Alkaline Phosphatase (42-121) IU/L Total Protein (6.7-8.2) g/dL Albumin (3.2-5.5) g/dL Globulin (2.1-4.2) g/dL Albumin/Globulin Ratio (1.0-2.2) - Current Medications Current Medications: Current Medications Generic Name Dose Route Start Last Admin Trade Name Freq PRN Reason Stop Dose Admin Atorvastatin Calcium 80 mg 05/13/18 21:00 05/13/18 21:25 Lipitor PO 80 mg QPM ANNA Administration Lactated Ringer's 1,000 mls @ 50 mls/hr 05/13/18 17:00 05/14/18 04:39 Lr IV 50 mls/hr .Q20H ANNA Infusion Acetaminophen 100 mls @ 400 mls/hr 05/13/18 17:00 05/14/18 04:36 Ofirmev IV Infused Q6H ANNA Infusion Insulin Aspart 1 - 5 unit 05/13/18 21:00 05/14/18 08:31 Novolog SUBQ 1 unit 0800,1200,1700,2100 ANNA Administration Protocol - Physical Exam Wound/Incisions: positive: Dressing dry and intact General Appearance: positive: No acute distress, Alert Eyes Bilateral: positive: Conjunctivae nml, No scleral icterus ENT: positive: ENT inspection nml, Pharynx nml, No signs of dehydration Neck: positive: Nml inspection, No JVD Respiratory: positive: Chest non-tender, No respiratory distress, Rales (bibasilar rales, partially clear with cough) Cardiovascular: positive: Regular rate & rhythm, No murmur, No gallop Abdomen: positive: Non-tender, No distention, Tenderness (minimal, expected postop tenderness), Abnml bowel sounds (hypoactive) Skin: positive: Color nml, No rash, Warm, Dry Extremities: positive: No pedal edema. negative: Calf tenderness Neurologic/Psychiatric: positive: Oriented x3 ABX Reporting Has patient been on IV antibiotics over the past 48 hours?: No Impression/Plan - Problem List Problem List: PO DAy 1 s/p lap right colectomy; doing well. PLan: advance diet, increase activity; d/c ivf; perhaps home tomorrow if continues to recover smoothly.
[2018-05-14] MEDS ORDERED: LISINOPRIL 5 MG TABLET PO SCH (09:00)
[2018-05-14] MEDS: ASPIRIN EC 81 MG TABLET PO SCH (09:34)
[2018-05-14] MEDS: LISINOPRIL 20 MG TABLET PO SCH (09:34)
[2018-05-14] MEDS: ENOXAPARIN 40 MG/0.4 ML SYRINGE SUBQ SCH (09:35)
[2018-05-14] MEDS: ATORVASTATIN 40 MG TABLET PO SCH (20:44)
[2018-05-14] MEDS ORDERED: INSULIN GLARGINE 300 UNIT/3 ML PEN SUBQ SCH (21:00)
[2018-05-15 05:14] LABS: BASOPHILS % (AUTO) 0.4 %; EOSINOPHILS # (AUTO) 0.1 10^3/uL (0.0-0.7); EOSINOPHILS % (AUTO) 0.9 %; HGB - HEMOGLOBIN 11.1 g/dL (14.0-18.0); LYMPHOCYTES # (AUTO) 0.8 10^3/uL (1.5-3.5); MEAN CORPUSCULAR HEMOGLOBIN 29.3 pg (27.0-31.0); MEAN CORPUSCULAR HGB CONC 33.4 g/dL (32.0-36.0); MEAN CORPUSCULAR VOLUME 87.8 fL (80.0-94.0); MEAN PLATELET VOLUME 7.5 fL (7.4-11.4); MONOCYTES # (AUTO) 0.8 10^3/uL (0.0-1.0); NEUTROPHILS # (AUTO) 5.7 10^3/uL (1.5-6.6); NEUTROPHILS % (AUTO) 76.7 %; PLT - PLATELET COUNT 189 10^3/uL (130-450); RED BLOOD COUNT 3.78 10^6/uL (4.70-6.10); WHITE BLOOD COUNT 7.4 x10^3/uL (4.8-10.8)
[2018-05-15 05:17] LABS: CALCIUM 8.5 mg/dL (8.5-10.3); CREATININE 1.1 mg/dL (0.6-1.2)
[2018-05-15] MEDS: ACETAMINOPHEN 1,000 MG/100 ML 100 ML IV SCH ×2 (06:15→10:41)
[2018-05-15] MEDS ORDERED: SODIUM CHLORIDE FLUSH 0.9% 10 ML SYRINGE ONE (06:41)
[2018-05-15 07:39] VITALS: BP 166/85
[2018-05-15] MEDS: ASPIRIN EC 81 MG TABLET PO SCH (08:17)
[2018-05-15] MEDS: LISINOPRIL 20 MG TABLET PO SCH (08:17)
[2018-05-15] MEDS: ENOXAPARIN 40 MG/0.4 ML SYRINGE SUBQ SCH (08:17)
[2018-05-15] MEDS: INSULIN ASPART 300 UNIT/3 ML PEN SUBQ SCH ×4 (08:19→11:33)
--- NOTE | 2018-05-15 09:24 | PROVIDER PROGRESS NOTE ---
Subjective - General Admit Date: 05/13/18 Procedure Date: 05/13/18 Post Op Days: 2 Procedure Performed: laparsocopic assisted right colectomy - Review of Systems Wound/Incisions: positive: Other (minimal serosang drainage in midline dressing; other dressings dry/intact) General: positive: No symptoms HEENT: positive: No symptoms Pulmonary: positive: No symptoms Cardiovascular: positive: No symptoms Gastrointestinal: positive: No symptoms Genitourinary: positive: No symptoms Musculoskeletal: positive: No symptoms Skin: positive: No symptoms All Other Systems: positive: Other (From a functional standpoint he lives alone. He is still independent with regards to driving his truck, cleaning his house, doing yard work. Cleans his own home. Gets up in the morning and has no d ifficulty cooking for himself, taking a bath. Daughter and grandchildren live nearby.) - Other Other Information/Narrative: Feels well. had good night sleep; pain well controlled with acetaminophen and ketorolac. Tolerating soft diet well, ambulating, voiding and moving bowels now well. Objective - Patient Data Reviewed Vital Signs: Yes Vital Signs: Vital Signs x48h Temp Pulse Resp BP Pulse Ox 05/15/18 07:38 36.9 C 96 18 166/85 H 95 Weight: Weight 05/13/18 05/14/18 05/15/18 23:59 23:59 23:59 Weight (kg) 71.8 kg Intake & Output: Intake and Output Totals x24h 05/13/18 05/14/18 05/15/18 23:59 23:59 23:59 Intake Total 2150 2830 560 Output Total 825 550 Balance 1325 2280 560 - Lab Results Lab Results: 05/15/18 04:50 05/15/18 04:50 Other Lab Results: Lab Results x24hrs 05/15/18 05/15/18 05/15/18 Range/Units 07:56 04:50 04:50 WBC 7.4 (4.8-10.8) x10^3/uL RBC 3.78 L (4.70-6.10) 10^6/uL Hgb 11.1 L (14.0-18.0) g/dL Hct 33.2 L (42.0-52.0) % MCV 87.8 (80.0-94.0) fL MCH 29.3 (27.0-31.0) pg MCHC 33.4 (32.0-36.0) g/dL RDW 15.0 (12.0-15.0) % Plt Count 189 (130-450) 10^3/uL MPV 7.5 (7.4-11.4) fL Neut # (Auto) 5.7 (1.5-6.6) 10^3/uL Lymph # (Auto) 0.8 L (1.5-3.5) 10^3/uL [place] # (Auto) 0.8 (0.0-1.0) 10^3/uL Eos # (Auto) 0.1 (0.0-0.7) 10^3/uL Baso # (Auto) 0.0 (0.0-0.1) 10^3/uL Absolute Nucleated RBC 0.00 x10^3/uL Nucleated RBC % 0.1 /100WBC Sodium 136 (135-145) mmol/L Potassium 3.7 (3.5-5.0) mmol/L Chloride 101 (101-111) mmol/L Carbon Dioxide 27 (21-32) mmol/L Anion Gap 8.0 (6-13) BUN 15 (6-20) mg/dL Creatinine 1.1 (0.6-1.2) mg/dL Estimated GFR (MDRD) 65 L (>89) Glucose 115 H (70-100) mg/dL POC Whole Bld Glucose 134 H (70 - 100) mg/dL Calcium 8.5 (8.5-10.3) mg/dL 05/14/18 05/14/18 05/14/18 Range/Units 20:29 16:35 11:34 WBC (4.8-10.8) x10^3/uL RBC (4.70-6.10) 10^6/uL Hgb (14.0-18.0) g/dL Hct (42.0-52.0) % MCV (80.0-94.0) fL MCH (27.0-31.0) pg MCHC (32.0-36.0) g/dL RDW (12.0-15.0) % Plt Count (130-450) 10^3/uL MPV (7.4-11.4) fL Neut # (Auto) (1.5-6.6) 10^3/uL Lymph # (Auto) (1.5-3.5) 10^3/uL [place] # (Auto) (0.0-1.0) 10^3/uL Eos # (Auto) (0.0-0.7) 10^3/uL Baso # (Auto) (0.0-0.1) 10^3/uL Absolute Nucleated RBC x10^3/uL Nucleated RBC % /100WBC Sodium (135-145) mmol/L Potassium (3.5-5.0) mmol/L Chloride (101-111) mmol/L Carbon Dioxide (21-32) mmol/L Anion Gap (6-13) BUN (6-20) mg/dL Creatinine (0.6-1.2) mg/dL Estimated GFR (MDRD) (>89) Glucose (70-100) mg/dL POC Whole Bld Glucose 213 H 116 H 187 H (70 - 100) mg/dL Calcium (8.5-10.3) mg/dL - Current Medications Current Medications: Current Medications Generic Name Dose Route Start Last Admin Trade Name Freq PRN Reason Stop Dose Admin Aspirin 81 mg 05/14/18 09:00 05/15/18 08:17 Ecotrin PO 81 mg DAILY ANNA Administration Atorvastatin Calcium 80 mg 05/13/18 21:00 05/14/18 20:44 Lipitor PO 80 mg QPM ANNA Administration Enoxaparin Sodium 40 mg 05/14/18 09:00 05/15/18 08:17 Lovenox SUBQ 40 mg DAILY ANNA Administration Acetaminophen 100 mls @ 400 mls/hr 05/13/18 17:00 05/15/18 06:43 Ofirmev IV Infused Q6H ANNA Infusion Insulin Aspart 1 - 5 unit 05/13/18 21:00 05/15/18 08:19 Novolog SUBQ Not Given 0800,1200,1700,2100 [facility] Protocol Insulin Aspart 2 unit 05/14/18 12:00 05/15/18 08:19 Novolog SUBQ 2 unit TIDWM ANNA Administration Insulin Glargine 12 unit 05/14/18 21:00 05/14/18 20:45 Lantus Solostar SUBQ 12 unit QPM ANNA Administration Ketorolac Tromethamine 15 mg 05/13/18 16:06 05/14/18 20:44 Toradol Inj (15mg) IVP 05/18/18 16:05 15 mg Q6HR PRN Administration PAIN Lisinopril 30 mg 05/14/18 09:00 05/15/18 08:17 Zestril PO 30 mg DAILY ANNA Administration - Physical Exam Wound/Incisions: positive: Dressing dry and intact (except midline dressing/will change) General Appearance: positive: No acute distress, Alert Eyes Bilateral: positive: Conjunctivae nml, No scleral icterus ENT: positive: Pharynx nml, No signs of dehydration Neck: positive: No JVD Respiratory: positive: Chest non-tender, No respiratory distress, Breath sounds nml. negative: Wheezes, Rales, Rhonchi Cardiovascular: positive: Regular rate & rhythm, No murmur, No gallop Abdomen: positive: Non-tender, Nml bowel sounds, No distention Skin: positive: Color nml Extremities: positive: No pedal edema. negative: Calf tenderness Neurologic/Psychiatric: positive: Oriented x3 ABX Reporting Has patient been on IV antibiotics over the past 48 hours?: No Impression/Plan - Problem List Problem List: Satisfactory postop course PO Day 2 s/p lap right colectomy for adenoca. Plan: home today, precautions, RTO 1 week; non narcotic analgesics; resume usual meds and diet. IDDM: reasonable control; home on usual meds per Dr. Crespo.
--- NOTE | 2018-05-15 11:37 | Discharge Plan ---
Discharge Plan Disposition: 01 Home, Self Care Condition: Good Diet: Regular (avoid raw vegetables and nuts for 2 weeks) Activity Restrictions: ambulate daily; no lifting more than 10 lbs for 2 weeks Shower Restrictions: No (no baths) Driving Restrictions: Yes (not for 72 hours) Weight Bearing: Full Weight Additional Instructions or Follow Up instructions: F/u with Dr. Mrarufo next week; call [phone] for appt. No Smoking: If you smoke, Please STOP! Call for help. Follow-up with: Rachelle Peres ARNP [Primary Care Provider] - 1 Week (f/u diabetes s/p partial colectomy)
--- NOTE | 2018-05-15 11:42 | DISCHARGE SUMMARY ---
"Discharge Summary Admit Date: 05/13/18 Discharge Date: 05/15/18 Discharging Provider: Dr. Dash Marrufo Primary Care Provider: Rachelle Peres Code Status: Attempt Resuscitation Condition at Discharge: Good Discharge Disposition: 01 Home, Self Care Discharge Facility Name: [facility] - DIAGNOSES Admission Diagnoses: Ascending colon cancer Discharge Diagnoses with Status of Each Condition: Same - HPI History of Present Illness: See H&P performed by Dr. Marrufo - CONSULTS | PROCEDURES Consultations: Hospitalist-Dr. Crespo Procedures: Laparoscopic assisted right colectomy on 05/13/2018 - HOSPITAL COURSE Hospital Course: Uncomplicated. Pt was managed with non narcotic analgesics, rapid resumption of oral intake, early ambulation and by PO Day 2 he was tolerating a soft diet, ambulating, voiding and moving his bowels without difficulty, with good pain control and stable vital signs. - ALLERGIES Allergies/Adverse Reactions: Allergies Allergy/AdvReac Type Severity Reaction Status Date / Time Penicillins Allergy Unknown Verified 05/12/18 13:36 - MEDICATIONS Home Medications: Ambulatory Orders Medication Instructions Recorded Confirmed Atorvastatin Calcium 80 mg PO QPM 01/20/16 05/13/18 Insulin Glargine,Hum.rec.anlog 16 unit SQ DAILY 01/20/16 05/13/18 [Lantus] Lisinopril 30 mg PO DAILY 01/20/16 05/13/18 Metformin HCl 1,000 mg PO BIDWM 01/20/16 05/13/18 Aspirin [Adult Aspirin] 81 mg PO DAILY 04/16/18 05/13/18 Acetaminophen 650 mg PO Q6H PRN #30 tablet 05/15/18 Ibuprofen 400 mg PO Q6H PRN #30 tablet 05/15/18 Home Medications Other | Comments: Tylenol and Advil for pain - PHYSICAL EXAM AT DISCHARGE General Appearance: positive: No acute distress, Alert Eyes Bilateral: positive: Conjunctivae nml, No scleral icterus ENT: positive: ENT inspection nml Neck: positive: No JVD Respiratory: positive: Chest non-tender, No respiratory distress, Breath sounds nml Cardiovascular: positive: Regular rate & rhythm, No murmur, No gallop Abdomen: positive: Non-tender, Nml bowel sounds, No distention, Other (dressings dry/intact) Extremities: positive: Non-tender, No pedal edema. negative: Calf tenderness Neurologic/Psychiatric: positive: Oriented x3 - LABS Result Diagrams: 05/15/18 04:50 05/15/18 04:50 - FOLLOW UP Follow Up: With Dr. Marrufo and Rachelle Peres next week. - TIME SPENT Time Spent in Discharge (Minutes): 30"
== END 2018-05-15 12:17 | disposition home or self-care (01) | DRG 331 ==
LOC: MS2 10:35
PROVIDERS: ADMIT Internal Medicine Gastroenterology; ATTEND Internal Medicine Gastroenterology
PROC: 0DBK4ZZ Excision of Ascending Colon, Percutaneous Endoscopic Approach (ICD-10-PCS; principal; 2018-05-13 11:45)
DX: C18.2 Malignant neoplasm of ascending colon (principal); I10 Essential (primary) hypertension; E11.9 Type 2 diabetes mellitus without complications; I25.10 Atherosclerotic heart disease of native coronary artery without angina pectoris; E78.00 Pure hypercholesterolemia, unspecified
CPT/HCPCS: 36415; 80048; 80053; 83036; 85025

== ENCOUNTER 2018-06-09 11:08 | Outpatient (CLI) | payer MEDICARE ==
[2018-06-09 18:32] LABS: HB2 TOTAL 12.5 g/dL; HEMOGLOBIN A1C 0.75 g/dL; HEMOGLOBIN A1C % 7.6 % (4.6-6.2)
== END 2018-06-09 11:09 | disposition home or self-care (01) ==
LOC: LAB.S 11:08
PROVIDERS: ATTEND Nurse Practitioner Family
DX: E11.9 Type 2 diabetes mellitus without complications (principal)
CPT/HCPCS: 36415; 83036

== ENCOUNTER 2018-06-23 10:28 | Outpatient (CLI) | payer MEDICARE | END 2018-06-23 10:29 | disposition home or self-care (01) | LOC: LAB.S 10:28 | PROVIDERS: ATTEND Internal Medicine Gastroenterology | DX: C18.2 Malignant neoplasm of ascending colon (principal) | CPT/HCPCS: 36415; 82378 ==

== ENCOUNTER 2018-07-08 14:25 | Outpatient (CLI) | payer MEDICARE ==
[2018-07-08 14:47] LABS: BASOPHILS % (AUTO) 0.6 %; EOSINOPHILS % (AUTO) 0.6 %; HGB - HEMOGLOBIN 11.4 g/dL (14.0-18.0); LYMPHOCYTES # (AUTO) 1.2 10^3/uL (1.5-3.5); LYMPHOCYTES % (AUTO) 20.9 %; MEAN CORPUSCULAR HEMOGLOBIN 28.6 pg (27.0-31.0); MEAN CORPUSCULAR HGB CONC 33.3 g/dL (32.0-36.0); MEAN CORPUSCULAR VOLUME 85.7 fL (80.0-94.0); MEAN PLATELET VOLUME 6.9 fL (7.4-11.4); MONOCYTES # (AUTO) 0.6 10^3/uL (0.0-1.0); NEUTROPHILS # (AUTO) 3.9 10^3/uL (1.5-6.6); NEUTROPHILS % (AUTO) 67.9 %; PLT - PLATELET COUNT 256 10^3/uL (130-450); RED CELL DISTRIBUTION WIDTH 14.3 % (12.0-15.0); WHITE BLOOD COUNT 5.8 x10^3/uL (4.8-10.8)
--- NOTE | 2018-07-08 15:21 | XRAY Report ---
Reason: CHF,COLON CANCER,ASCENDING Procedure Date: 07/08/2018 Accession Number: [id number] / [id number] Procedure: XR - Chest 2 View X-Ray CPT Code: 31615 FULL RESULT: EXAM: CHEST RADIOGRAPHY. EXAM DATE: 07/08/2018 03:01 PM. CLINICAL HISTORY: Congestive heart failure, colon cancer, ascending. COMPARISON: Chest with 04/18/2018 12:24 PM. TECHNIQUE: 2 views. FINDINGS: Lungs/Pleura: No focal opacities evident. No pleural effusion. No pneumothorax. Lung volumes are low. Mediastinum: Apparent enlargement of the cardiomediastinal silhouette is exacerbated low lung volumes. Calcification of the aortic arch is again noted. Other: None. IMPRESSION: No definite airspace disease. RADIA
== END 2018-07-08 14:26 | disposition home or self-care (01) ==
LOC: LAB 14:25 → DI 14:26
PROVIDERS: ATTEND Internal Medicine Gastroenterology
DX: C18.2 Malignant neoplasm of ascending colon (principal); I50.9 Heart failure, unspecified
CPT/HCPCS: 36415; 71046; 80053; 85025

== ENCOUNTER 2018-07-14 08:52 | Day surgery (SDC) | payer MEDICARE ==
[2018-07-14] MEDS ORDERED: ceFAZolin 2 GM/50 ML 0 GM/0 ML BAG IV ONE (09:06)
[2018-07-14] MEDS ORDERED: LIDOCAINE 1% 50 ML MDV ONE (09:14)
[2018-07-14] MEDS ORDERED: ceFAZolin 1 GM VIAL ONE (09:18)
[2018-07-14] MEDS ORDERED: SODIUM CHLORIDE 0.9% 10 ML ONE (09:18)
[2018-07-14 09:30] VITALS: BP 154/117
[2018-07-14] MEDS ORDERED: PROPOFOL 200 MG/20 ML VIAL IVP ONE (13:30)
[2018-07-14] MEDS ORDERED: LIDOCAINE-MPF 2% 5 ML VIAL IM ONE (13:30)
[2018-07-14] MEDS ORDERED: fentaNYL 100 MCG/2 ML VIAL IVP ONE (13:30)
[2018-07-14] MEDS ORDERED: MIDAZOLAM 2 MG/2 ML VIAL IVP ONE (13:30)
[2018-07-14] MEDS ORDERED: HYDROcod/ACETAM 5/325 MG TABLET PO PRN (14:21)
[2018-07-14] MEDS ORDERED: ONDANSETRON 4 MG/2 ML VIAL IVP PRN (14:21)
--- NOTE | 2018-07-14 16:39 | XRAY Report ---
Reason: s/p port placement Procedure Date: 07/14/2018 Accession Number: [id number] / [id number] Procedure: XR - Chest 1 View X-Ray CPT Code: 94346 FULL RESULT: EXAM: CHEST RADIOGRAPHY EXAM DATE: 07/14/2018 04:06 PM. CLINICAL HISTORY: S/p port placement. COMPARISON: CHEST 2 VIEW 07/08/2018 3:16 PM CHEST W/ 04/18/2018 12:24 PM. TECHNIQUE: 1 view. FINDINGS: Lungs/Pleura: Continued low lung volumes. Mild left upper lobe reticular hazy opacities which could represent mild interstitial pulmonary fibrosis are again noted. No consolidation, pleural effusion or pneumothorax. New left subclavian Port-A-Cath central line with the tip at the upper superior vena cava. Mediastinum: Within exam limitations, the cardiomediastinal contour is normal. IMPRESSION: New left subclavian Port-A-Cath central line with the tip at the upper superior vena cava. No pneumothorax. Mild left upper lobe reticular hazy opacities which could represent mild interstitial pulmonary fibrosis are again noted. RADIA
== END 2018-07-14 08:53 | disposition home or self-care (01) ==
LOC: SDS 08:52
PROVIDERS: ATTEND Internal Medicine Gastroenterology
DX: C18.2 Malignant neoplasm of ascending colon (principal)
CPT/HCPCS: 71045

== ENCOUNTER 2018-07-14 11:51 | Day surgery (SDC) | payer MEDICARE ==
[2018-07-14] MEDS ORDERED: ceFAZolin 2 GM/50 ML 2 GM/50 ML BAG IV ONE (12:00)
--- NOTE | 2018-07-14 12:25 | ANESTHESIA ---
Pre-Anesthesia VS, & Labs - Diagnosis colon cancer - Procedure portacath placement Vital Signs: Temp Pulse Resp BP Pulse Ox 36.2 C L 85 16 154/117 H 96 07/14/18 12:03 07/14/18 12:03 07/14/18 12:03 07/14/18 12:03 07/14/18 12:03 154/117 16 36.2 96% Height 5 ft 9 in Weight (kg) 67.1 kg Body Mass Index 21.6 - NPO >8 hours (Ensure drink at 7am), Other Home Medications and Allergies Atorvastatin Calcium 80 mg PO QPM 01/20/16 Insulin Glargine,Hum.rec.anlog [Lantus] 13 unit SQ DAILY 01/20/16 Lisinopril 30 mg PO DAILY 01/20/16 Metformin HCl 1,000 mg PO BIDWM 01/20/16 Aspirin [Adult Aspirin] 81 mg PO DAILY 04/16/18 Allergies/Adverse Reactions: Allergies Allergy/AdvReac Type Severity Reaction Status Date / Time Penicillins Allergy Unknown Verified 07/11/18 11:29 Anes History & Medical History - Anesthetic History Anesthesia Complications: reports: No previous complications - Medical History Cardiovascular: reports: Hypertension, High cholesterol, Coronary artery disease, Atrial fibrillation, Other (Last Echo shows EF 60%, no , Last EKG pat ient was in Afib) Pulmonary: reports: None Gastrointestinal: reports: None Urinary: reports: Renal insuffiency Musculoskeletal: reports: None Endocrine/Autoimmune: reports: Type 2 diabetes Skin: reports: None Smoking Status: Former smoker - Surgical History General: Colonoscopy, Other Eyes Ears Nose Throat (EENT): Cataracts Exam General: Alert, Oriented x3 Dental: WNL Mouth Opening: Greater than 4 Fingerbreadths Neck Mobility: Normal Mallampati classification: II Thyromental Distance: greater than 6 cm Respiratory: Lungs clear Cardiovascular: Regular rate, Normal S1, Normal S2 Plan Anesthesia Type: General Consent for Procedure(s) Verified and Reviewed: Yes Code Status: Attempt Resuscitation ASA classification: 3-Severe systemic disease Is this case an emergency?: No
[2018-07-14] MEDS ORDERED: LACTATED RINGERS 1,000 ML IV ONE (12:52)
[2018-07-14] MEDS ORDERED: LIDOCAINE 1% 50 ML MDV IV ONE ×2 (13:29)
[2018-07-14] MEDS ORDERED: ceFAZolin 1 GM VIAL IR ONE (13:29)
[2018-07-14 15:21] VITALS: BP 139/71
--- NOTE | 2018-07-14 16:26 | XRAY Report ---
Reason: PORT O CATH PLACEMENT Procedure Date: 07/14/2018 Accession Number: [id number] / [id number] Procedure: [place] - OR Port-A-Cath CPT Code: FULL RESULT: EXAM: FLUOROSCOPIC GUIDANCE EXAM DATE: 07/14/2018 02:31 PM. CLINICAL HISTORY: Port-a-cath placement. COMPARISON: None. FINDINGS: A left side approach central venous catheter is seen terminating in the region of the lower SVC/superior cavoatrial junction. IMPRESSION: Fluoroscopic guidance provided for port placement. Total fluoroscopy time: 0.3 minutes. Number of images: 1. RADIA
--- NOTE | 2018-07-15 09:35 | OPERATIVE REPORT ---
Operative Report - General Procedure Date: 07/14/18 Planned Procedure: Port placement Pre-Op Diagnosis: Stage 3 Colon Cancer Procedure Performed: Port Placement Post Op Diagnosis: Same - Procedure Note Primary Surgeon: Dash Marrufo MD [facility] Anesthesia Provider: Isidro Mcconnell CRNA Anesthesia Technique: Local, MAC Pathology: None Estimated Blood Loss (mL): 10 Complications: None - Other Other Information/Narrative: After informed consent, pt was placed supine on the OR table, sedated and monitored. His anterior chest wall and neck were clipped and prepped with Chloroprep and draped in the usual sterile fashion. 1% lidocaine plain was used for local anesthesia; approximately 15 ml was used. Pt was placed in steep trendelenburg position and a needle and syringe were used to access the left subclavian vein from an infra-clavicular approach. The vein was easily accessed twice but the guidewire that was passed through the needle did not enter the central venous circulation. On the third attempt using an ureteral catheter guidewire, the central venous circulation was accessed and the needle was removed, the tract dilated and the single lumen 7 # catheter was placed into the SVC with fluoroscopic control. A subuctaneous pocket was created medial to the catheter exit site in an infraclavicular position of sufficient size to accept the standard profile Power Port reservoir. The catheter was trimmed to appropriate length, attached to the reservoir hub in the appropriate manner, securing the locking device onto the hub. The reservoir was placed into the pocket and secured to the pectoral fascia at two points with 3-0 nylon. After hemostasis was achieved the wound was copiously irrigated with sterile saline containing 1 gm cefazolin/liter, the the wound closed in layers with 3-0 Vicryl for the subcutaneous tissue and 4-0 Monocryl for a subcuticular skin closure followed by DermaBond. The reservoir was accessed with a Johansen needle and seen to aspirate blood and was flushed with sterile saline without difficulty. The procedure was terminated and pt transferred to the PACU in satisfactory condition. A CXR following the procedure showed the catheter tip in satisfactory position near the subclavian vein/SVC junction, without apparent complication. Pt tolerated the procedure well. Sponge and needle counts were correct x 2.
== END 2018-07-14 11:52 | disposition home or self-care (01) ==
LOC: SDS 11:51
PROVIDERS: ATTEND Internal Medicine Gastroenterology
PROC: 05H633Z Insertion of Infusion Device into Left Subclavian Vein, Percutaneous Approach (ICD-10-PCS; 2018-07-14)
PROC: 0JH63WZ Insertion of Totally Implantable Vascular Access Device into Chest Subcutaneous Tissue and Fascia, Percutaneous Approach (ICD-10-PCS; principal; 2018-07-14 13:00)
DX: C18.2 Malignant neoplasm of ascending colon (principal); E11.9 Type 2 diabetes mellitus without complications; I11.0 Hypertensive heart disease with heart failure; I50.9 Heart failure, unspecified; I25.10 Atherosclerotic heart disease of native coronary artery without angina pectoris; E78.5 Hyperlipidemia, unspecified; Z87.891 Personal history of nicotine dependence; Z79.4 Long term (current) use of insulin; I48.91 Unspecified atrial fibrillation
CPT/HCPCS: 36561; 71045; C1788; J0690; J7120

== ENCOUNTER 2018-07-28 13:16 | Outpatient (CLI) | payer OTHER ==
[2018-07-28 17:55] LABS: BASOPHILS % (AUTO) 0.7 %; EOSINOPHILS # (AUTO) 0.1 10^3/uL (0.0-0.7); EOSINOPHILS % (AUTO) 1.1 %; HGB - HEMOGLOBIN 11.6 g/dL (14.0-18.0); LYMPHOCYTES # (AUTO) 1.1 10^3/uL (1.5-3.5); LYMPHOCYTES % (AUTO) 20.4 %; MEAN CORPUSCULAR HEMOGLOBIN 28.1 pg (27.0-31.0); MEAN CORPUSCULAR HGB CONC 32.1 g/dL (32.0-36.0); MEAN CORPUSCULAR VOLUME 87.6 fL (80.0-94.0); MEAN PLATELET VOLUME 7.4 fL (7.4-11.4); MONOCYTES # (AUTO) 0.5 10^3/uL (0.0-1.0); MONOCYTES % (AUTO) 10.2 %; NEUTROPHILS # (AUTO) 3.7 10^3/uL (1.5-6.6); NEUTROPHILS % (AUTO) 67.6 %; PLT - PLATELET COUNT 220 10^3/uL (130-450); RED BLOOD COUNT 4.13 10^6/uL (4.70-6.10); RED CELL DISTRIBUTION WIDTH 15.3 % (12.0-15.0); WHITE BLOOD COUNT 5.4 x10^3/uL (4.8-10.8)
[2018-07-28 18:08] LABS: BILIRUBIN,TOTAL 0.7 mg/dL (0.2-1.0); CALCIUM 9.9 mg/dL (8.5-10.3); CREATININE 0.8 mg/dL (0.6-1.2); TOTAL PROTEIN 8.2 g/dL (6.7-8.2)
== END 2018-07-28 23:59 | disposition home or self-care (01) ==
LOC: LAB.S 13:16
PROVIDERS: ATTEND Internal Medicine Gastroenterology
DX: C18.2 Malignant neoplasm of ascending colon (principal)
CPT/HCPCS: 36415; 80053; 85025

== ENCOUNTER 2018-08-25 10:51 | Outpatient (CLI) | payer MEDICARE ==
[2018-08-25] MEDS ORDERED: IOVERSOL 320 50 ML VIAL ONE (11:02)
[2018-08-25] MEDS ORDERED: IOVERSOL 320 100 ML VIAL IVP ONE ×2 (11:02→12:10)
--- NOTE | 2018-08-26 13:25 | CT Report ---
Reason: COLON CANCER,ASCENDING,ABDOMINAL OR PELVIC SWELLIN Procedure Date: 08/25/2018 Accession Number: [id number] / [id number] Procedure: CT - Abdomen/Pelvis W/ CPT Code: FULL RESULT: EXAM: CT ABDOMEN AND PELVIS EXAM DATE: 08/25/2018 12:18 PM. CLINICAL HISTORY: COLON CANCER,ASCENDING follow-up COMPARISONS: 04/18/2018 CT TECHNIQUE: Routine helical CT imaging was performed through the abdomen and pelvis. IV contrast: MUAT086 90ML. Enteric contrast: No. Reconstructions: Coronal and sagittal. In accordance with CT protocol optimization, one or more of the following dose reduction techniques were utilized for this exam: automated exposure control, adjustment of mA and/or KV based on patient size, or use of iterative reconstructive technique. FINDINGS: Lung Bases: Subpleural fibrotic change as before. No pleural effusion. Liver: Normal. No masses. Gallbladder/Bile Ducts: Unremarkable for CT technique. Spleen: Normal. Pancreas: Normal. Adrenal Glands: Normal. Kidneys: Stable right renal cyst. Interval development of bilateral hydroureteronephrosis. Peritoneal Cavity/Bowel: Status post right hemicolectomy. No free fluid, free air or pathologic adenopathy. Small pericaval lymph nodes series 3 image 56 are stable to minimally increased in size but still measure under 1 cm.. Pelvic Organs: Marked bladder distention measuring 11.8 x 13.6 cm axial by 17 cm vertical, volume approximately 2 L. Mildly prominent prostate. Vasculature: No aneurysms or other significant abnormality. Bones: Degenerative change in the spine Other: None. IMPRESSION: 1. Interval right hemicolectomy since 04/18/2018. 2. Evidence of urinary retention with distended bladder, volume approximately 2 L with resultant new bilateral hydroureteronephrosis. 3. No definite evidence of metastatic disease. Small retroperitoneal lymph nodes stable to minimally increased in size but still measuring under 1 cm. RADIA
[2018-08-27] MEDS ORDERED: IOVERSOL 320 50 ML VIAL PO ONE (10:11)
== END 2018-08-25 10:52 | disposition home or self-care (01) ==
LOC: DI 10:51
PROVIDERS: ATTEND Internal Medicine Gastroenterology
DX: C18.2 Malignant neoplasm of ascending colon (principal); R19.05 Periumbilic swelling, mass or lump; R33.9 Retention of urine, unspecified; N13.30 Unspecified hydronephrosis
CPT/HCPCS: 74177; Q9967

== ENCOUNTER 2018-09-29 08:00 | Outpatient (CLI) | payer MEDICARE ==
[2018-09-30 11:38] LABS: BILIRUBIN,URINE NEGATIVE (NEGATIVE); GLUCOSE, URINE (UA) NEGATIVE (NEGATIVE); KETONES,URINE (UA) NEGATIVE (NEGATIVE); LEUKOCYTE ESTERASE, URINE MODERATE (NEGATIVE); NITRITE,URINE NEGATIVE (NEGATIVE); OCCULT BLOOD,URINE MODERATE (NEGATIVE); PROTEIN,URINE 100 mg/dL (NEGATIVE); UROBILINOGEN,URINE 0.2 (NORMAL) E.U./dL (NORMAL)
[2018-09-30 11:53] LABS: CLARITY,URINE CLOUDY (CLEAR)
[2018-09-30 11:54] LABS: BACTERIA,URINE Few /HPF (None Seen); MUCUS,URINE Few Strands; SQUAMOUS EPITHELIAL CELL,UR FEW Squamous (<= Few)
== END 2018-09-29 23:59 ==
LOC: LAB.R 08:00
PROVIDERS: ATTEND Nurse Practitioner Family
DX: N39.0 Urinary tract infection, site not specified (principal)
CPT/HCPCS: 81001; 87077; 87086; 87181

== ENCOUNTER 2018-12-06 21:28 | Outpatient (CLI) | payer MEDICARE | END 2018-12-06 21:29 | disposition critical access hospital (66) | LOC: EMS 21:28 | PROVIDERS: ATTEND Surgery | DX: R53.1 Weakness (principal) | CPT/HCPCS: A0425; A0429 ==

== ENCOUNTER 2018-12-06 22:01 | Emergency (ER) | payer MEDICARE ==
[2018-12-06] MEDS ORDERED: SODIUM CHLORIDE 0.9% 1,000 ML IV ONE (22:23)
--- NOTE | 2018-12-06 22:25 | ED Physician Documentation ---
History of Present Illness - Stated complaint Stated Complaint: WEAKNESS - Chief complaint Chief Complaint: Neuro - History obtained from History obtained from: Patient, Family - Additonal information Additional information: Patient is a 78-year-old male with history of colon cancer presenting with his daughter who has concerns for generally not behaving like himself. Patient denies chest pain or other pain, difficulty breathing, vomiting, diarrhea, urine changes, fever or other complaints. Patient states he is here because his daughter is concerned. Daughter reports that her and her family visited him earlier today several hours ago and that he was not as talkative as normal, although without specific changes in his speech or obvious facial droop, paresthesias, or paralysis. Daughter feels that he may have been more confused than usual. Patient does have history of UTIs, although has no known bladder or prostate issues. Patient's last UTI was about a month ago and treated, but they do not remember the medication name. Patient and family also deny any falls or trauma. No other worsening or improving factors to his symptoms noted.Patient's last chemotherapy was several months ago. No plans for further chemotherapy in the future, although patient does have port over left chest.He denies any complications with the port. Review of Systems Constitutional: denies: Fever Cardiac: denies: Chest pain / pressure GI: denies: Abdominal Pain : denies: Dysuria PD PAST MEDICAL HISTORY - Past Medical History Past Medical History: Yes Cardiovascular: Hypertension, High cholesterol, Coronary artery disease, Atrial fibrillation, Other Respiratory: None Endocrine/Autoimmune: Type 2 diabetes GI: None : Renal insuffiency HEENT: Other Psych: None Musculoskeletal: None Derm: None - Past Surgical History Past Surgical History: Yes General: Colonoscopy, Other HEENT: Cataracts - Present Medications Home Medications: Ambulatory Orders Medication Instructions Recorded Confirmed RX: Insulin Glargine,Hum.rec.anlog 16 unit SQ DAILY 01/20/16 10/21/18 [Lantus] RX: Metformin HCl 1,000 mg PO BIDWM 01/20/16 10/21/18 RX: Aspirin [Adult Aspirin] 81 mg PO DAILY 04/16/18 10/21/18 Emla Cream 1 inch TOP DAILY PRN 07/14/18 10/21/18 RX: Ondansetron Odt [Zofran Odt] 4 mg PO Q4H PRN 07/14/18 10/21/18 RX: Prochlorperazine Maleate 10 mg PO Q6H PRN 07/14/18 10/21/18 [Compazine] RX: Fluorouracil [Adrucil] 4,344 mg IV Q14D 09/18/18 10/21/18 RX: Fluorouracil [Adrucil] 724 mg IV Q14D 09/18/18 10/21/18 RX: Leucovorin Calcium 700 mg IV Q14D 09/18/18 10/21/18 RX: Tamsulosin HCl [Flomax] 0.4 mg PO QPM 09/18/18 10/21/18 RX: Insulin Aspart [NovoLOG] 0 - 10 unit SUBQ AC #1 pen 09/20/18 10/21/18 RX: Mirtazapine [Remeron] 7.5 mg PO QPM #30 tablet 09/20/18 10/21/18 amLODIPine [Norvasc] 5 mg PO DAILY #30 tablet 09/20/18 10/21/18 RX: Megestrol Acetate 10 - 20 ml PO DAILY #250 ml 09/23/18 Ciprofloxacin/Ciprofloxa HCl 500 mg PO BID 10/22/18 10/22/18 [Ciprofloxacin ER 500 mg Tablet] Ciprofloxacin HCl [Cipro] 500 mg PO BID #14 tablet 12/07/18 - Allergies Allergies/Adverse Reactions: Allergies Allergy/AdvReac Type Severity Reaction Status Date / Time Penicillins Allergy Unknown Verified 12/06/18 22:08 - Social History Does the pt smoke?: Yes Smoking Status: Current every day smoker Does the pt drink ETOH?: No Does the pt have substance abuse?: No - Immunizations Immunizations are current?: Yes - POLST Patient has POLST: No POLST Status: Full Code PD ED PE NORMAL - General General: Alert and oriented X 3, No acute distress. No: Well developed/nourished (Slightly frail) - HEENT HEENT: Atraumatic, PERRL, EOMI, Moist mucous membranes, Pharynx benign - Cardiac Cardiac: RRR, No murmur, Other (Port in place, uncomplicated) - Respiratory Respiratory: No respiratory distress, Clear bilaterally - Abdomen Abdomen: Normal bowel sounds, Soft, Non tender, Non distended - Derm Derm: Normal color, Warm and dry, No rash - Extremities Extremities: No deformity, No tenderness to palpate, No edema - Neuro Neuro: Alert and oriented X 3, No motor deficit, No sensory deficit - Psych Psych: Normal mood, Normal affect Results - Vitals Vitals: Vital Signs - 24 hr 12/06/18 12/06/18 12/06/18 22:03 22:16 23:28 Temperature 37.0 C Heart Rate 120 H 120 H 115 H Respiratory 18 17 31 H Rate Blood Pressure 119/68 119/68 O2 Saturation 97 97 99 12/07/18 12/07/18 00:56 01:06 Temperature Heart Rate 113 H 97 Respiratory 25 H 25 H Rate Blood Pressure 99/65 106/65 O2 Saturation 96 96 Oxygen O2 Source Room air - EKG (time done) 2211 Rate: Rate (enter#) (107) Intervals: 2nd degree AVB type 1 Other comments: Other comments (multiform PVCs) - Labs Labs: Laboratory Tests 12/06/18 12/06/18 12/06/18 22:58 22:58 22:58 WBC 13.8 H RBC 3.53 L Hgb 9.6 L Hct 29.7 L MCV 84.0 MCH 27.2 MCHC 32.4 RDW 18.3 H Plt Count 496 H MPV 6.2 L Neut # (Auto) 11.0 H Lymph # (Auto) 0.9 L [place] # (Auto) 1.8 H Eos # (Auto) 0.0 Baso # (Auto) 0.1 Absolute Nucleated RBC 0.00 Nucleated RBC % 0.0 Manual Slide Review Indicated Platelet Estimate INCREASED (>450,000) RBC Morph Micro Appear NORMAL APPEARANCE PT INR APTT Sodium 136 Potassium 4.7 Chloride 98 L Carbon Dioxide 25 Anion Gap 13.0 BUN 32 H Creatinine 1.7 H Estimated GFR (MDRD) 39 L Glucose 133 H Calcium 9.2 Total Bilirubin 0.5 AST 23 ALT 16 Alkaline Phosphatase 57 Troponin I < 0.04 Total Protein 8.3 H Albumin 2.8 L Globulin 5.5 H Albumin/Globulin Ratio 0.5 L Lipase 42 Urine Color Urine Clarity Urine pH Ur Specific [place] Urine Protein Urine Glucose (UA) Urine Ketones Urine Occult Blood Urine Nitrite Urine Bilirubin Urine Urobilinogen Ur Leukocyte Esterase Urine RBC Urine WBC Ur Squamous Epith Cells Urine Bacteria Ur Microscopic Review Urine Culture Comments Urine Opiates Screen Ur Oxycodone Screen Urine Methadone Screen Ur Propoxyphene Screen Ur Barbiturates Screen Ur Tricyclics Screen Ur Phencyclidine Scrn Ur Amphetamine Screen U Methamphetamines Scrn U Benzodiazepines Scrn Urine Cocaine Screen U Cannabinoids Screen Ethyl Alcohol < 5.0 12/06/18 12/06/18 22:58 23:01 WBC RBC Hgb Hct MCV MCH MCHC RDW Plt Count MPV Neut # (Auto) Lymph # (Auto) [place] # (Auto) Eos # (Auto) Baso # (Auto) Absolute Nucleated RBC Nucleated RBC % Manual Slide Review Platelet Estimate RBC Morph Micro Appear PT 17.1 H INR 1.5 H APTT 26.6 Sodium Potassium Chloride Carbon Dioxide Anion Gap BUN Creatinine Estimated GFR (MDRD) Glucose Calcium Total Bilirubin AST ALT Alkaline Phosphatase Troponin I Total Protein Albumin Globulin Albumin/Globulin Ratio Lipase Urine Color YELLOW Urine Clarity HAZY Urine pH 6.0 Ur Specific [place] 1.010 Urine Protein 30 H Urine Glucose (UA) NEGATIVE Urine Ketones NEGATIVE Urine Occult Blood TRACE-INTA Urine Nitrite POSITIVE H Urine Bilirubin NEGATIVE Urine Urobilinogen 0.2 (NORMAL) Ur Leukocyte Esterase LARGE H Urine RBC 0-5 Urine WBC >25 H Ur Squamous Epith Cells NONE SEEN Urine Bacteria Moderate H Ur Microscopic Review INDICATED Urine Culture Comments INDICATED Urine Opiates Screen NEGATIVE Ur Oxycodone Screen NEGATIVE Urine Methadone Screen NEGATIVE Ur Propoxyphene Screen NEGATIVE Ur Barbiturates Screen NEGATIVE Ur Tricyclics Screen NEGATIVE Ur Phencyclidine Scrn NEGATIVE Ur Amphetamine Screen NEGATIVE U Methamphetamines Scrn NEGATIVE U Benzodiazepines Scrn NEGATIVE Urine Cocaine Screen NEGATIVE U Cannabinoids Screen NEGATIVE Ethyl Alcohol PD MEDICAL DECISION MAKING - ED course Complexity details: reviewed old records, reviewed results, re-evaluated patient, considered differential, d/w patient, d/w family ED course: Unfortunately, patient has complicated past medical history, including recurrent urinary tract infections. Patient and family deny any history of trauma or falls I do not find evidence of trauma on exam. Do not feel patient's symptoms are likely related to trauma at this time. Additionally, patient appears to be at his baseline, although daughter did have concerns for possible decreased talking and increased confusion earlier today. No signs of facial droop, slurred speech, specific paresthesias or paralysis to indicate stroke or other intracranial complication, however, will obtain CT head.Patient denies symptoms arteries high suspicion for other complications including PE, AR, ACS, unstable angina, pneumonia, intra-abdominal pathology or otherwise. Will obtain general screening labs, as well as urinalysis and EKG. At this time, do not feel patient requires any medications.EKG did not find evidence of acute ischemia. Troponin negative. Screening lab work returning relatively unremarkable although some abnormality such as decreased H&H, but similar to previous measurements when compared to prior work-ups.Patient also denied symptoms that raise high suspicion for acute anemia or GI bleed.Imaging returned unremarkable. However, urinalysis indicated likely infection. Feel appropriate to treat as UTI at this time. Feel that UTI is likely contributing to his other symptoms as well.Discussed results and recommendations with patient and family. Provided first dose of antibiotics in ED. Patient and family understanding and comfortable with discharge plan. Departure - Departure Disposition: 01 Home, Self Care Clinical Impression: Urinary tract infection Condition: Good Instructions: ED UTI Cystitis Male Follow-Up: Rachelle Peres ARNP [Primary Care Provider] - Within 3 Days Prescriptions: Ciprofloxacin HCl [Cipro] 500 mg PO BID #14 tablet Comments: Please continue all home medications as previously instructed. Please take ciprofloxacin as instructed to treat bladder/urinary tract infection. Recommend taking with food to avoid upset stomach. Also recommend hydration and healthy diet. Please follow-up with primary care physician next 2 3 days and return to ED sooner if experience worsening symptoms or other concerns. Discharge Date/Time: 12/07/18 01:32
[2018-12-06 23:06] LABS: BASOPHILS # (AUTO) 0.1 10^3/uL (0.0-0.1); BASOPHILS % (AUTO) 0.7 %; EOSINOPHILS % (AUTO) 0.1 %; HGB - HEMOGLOBIN 9.6 g/dL (14.0-18.0); LYMPHOCYTES # (AUTO) 0.9 10^3/uL (1.5-3.5); LYMPHOCYTES % (AUTO) 6.4 %; MEAN CORPUSCULAR HEMOGLOBIN 27.2 pg (27.0-31.0); MEAN CORPUSCULAR HGB CONC 32.4 g/dL (32.0-36.0); MEAN PLATELET VOLUME 6.2 fL (7.4-11.4); MONOCYTES # (AUTO) 1.8 10^3/uL (0.0-1.0); MONOCYTES % (AUTO) 12.7 %; NEUTROPHILS % (AUTO) 80.1 %; PLT - PLATELET COUNT 496 10^3/uL (130-450); RED BLOOD COUNT 3.53 10^6/uL (4.70-6.10); RED CELL DISTRIBUTION WIDTH 18.3 % (12.0-15.0); WHITE BLOOD COUNT 13.8 x10^3/uL (4.8-10.8)
[2018-12-06 23:12] LABS: INR 1.5 (0.8-1.2); PT - PROTHROMBIN TIME 17.1 secs (9.9-12.6)
[2018-12-06 23:15] LABS: MUDS CUTOFF CONCENTRATIONS CUTOFF CONC BELOW:
[2018-12-06 23:18] LABS: BILIRUBIN,URINE NEGATIVE (NEGATIVE); GLUCOSE, URINE (UA) NEGATIVE (NEGATIVE); KETONES,URINE (UA) NEGATIVE (NEGATIVE); LEUKOCYTE ESTERASE, URINE LARGE (NEGATIVE); NITRITE,URINE POSITIVE (NEGATIVE); OCCULT BLOOD,URINE TRACE-INTA (NEGATIVE); PROTEIN,URINE 30 mg/dL (NEGATIVE); UROBILINOGEN,URINE 0.2 (NORMAL) E.U./dL (NORMAL)
[2018-12-06 23:19] LABS: PARTIAL THROMBOPLASTIN TIME 26.6 secs (24.9-33.3)
[2018-12-06 23:23] LABS: CLARITY,URINE HAZY (CLEAR)
[2018-12-06 23:26] LABS: RBC,URINE 0-5 /HPF (0-5); SQUAMOUS EPITHELIAL CELL,UR NONE SEEN (<= Few)
[2018-12-06 23:27] LABS: AMPHETAMINE SCREEN,URINE NEGATIVE (NEGATIVE); BACTERIA,URINE Moderate /HPF (None Seen); BENZODIAZEPINES SCREEN, URINE NEGATIVE (NEGATIVE); COCAINE SCREEN URINE NEGATIVE (NEGATIVE); METHADONE SCREEN, URINE NEGATIVE (NEGATIVE); METHAMPHETAMINES SCREEN, URINE NEGATIVE (NEGATIVE); OPIATE SCREEN, URINE NEGATIVE (NEGATIVE); OXYCODONE SCREEN, URINE NEGATIVE (NEGATIVE); PROPOXYPHENE SCREEN, URINE NEGATIVE (NEGATIVE); TRICYCLIC ANTIDEPRESSANT,URINE NEGATIVE (NEGATIVE)
[2018-12-06 23:35] LABS: ALBUMIN 2.8 g/dL (3.2-5.5); ALBUMIN/GLOBULIN RATIO 0.5 (1.0-2.2); ALKALINE PHOSPHATASE 57 IU/L (42-121); ALT ALANINE AMINOTRANSFERASE 16 IU/L (10-60); AST ASPARTATE AMINOTRANSFERASE 23 IU/L (10-42); BILIRUBIN,TOTAL 0.5 mg/dL (0.2-1.0); BUN - BLOOD UREA NITROGEN 32 mg/dL (6-20); CALCIUM 9.2 mg/dL (8.5-10.3); CARBON DIOXIDE - CO2 25 mmol/L (21-32); CHLORIDE 98 mmol/L (101-111); CREATININE 1.7 mg/dL (0.6-1.2); GFR - MDRD 39 (>89); GLUCOSE 133 mg/dL (70-100); LIPASE 42 U/L (22-51); SODIUM 136 mmol/L (135-145); TOTAL PROTEIN 8.3 g/dL (6.7-8.2)
[2018-12-06 23:41] LABS: PLATELET ESTIMATE, MANUAL INCREASED (>450,000) (NORMAL); RBC MORPHOLOGY (MULTIPLE) NORMAL APPEARANCE (NORMAL)
--- NOTE | 2018-12-06 23:58 | CT Report ---
Reason: Family concern that patient has change in speech Procedure Date: 12/06/2018 Accession Number: [id number] / [id number] Procedure: CT - HEAD WO CPT Code: FULL RESULT: EXAM: CT HEAD EXAM DATE: 12/06/2018 10:55 PM. CLINICAL HISTORY: Family concern that patient has change in speech. COMPARISON: None. TECHNIQUE: Multiaxial CT images were obtained from the foramen magnum to the vertex. Reformats: Sagittal and coronal. IV contrast: None. In accordance with CT protocol optimization, one or more of the following dose reduction techniques were utilized for this exam: automated exposure control, adjustment of mA and/or KV based on patient size, or use of iterative reconstructive technique. FINDINGS: Parenchyma: No intraparenchymal hemorrhage. No evidence of mass, midline shift, or CT findings of acute infarction. Vázquez-white differentiation is distinct. Diffuse chronic microangiopathic white matter changes are evident. Extraaxial Spaces: Normal for age. No subdural or epidural collections identified. Ventricles: The ventricles and cortical sulci are enlarged, consistent with age-related tissue loss. Sinuses and orbits: Imaged paranasal sinuses, orbits, and mastoids show no significant abnormality. Bones: No evidence of fracture or calvarial defect. Other: None. IMPRESSION: Generalized age-related cortical atrophic changes without evidence of acute intracranial abnormality. RADIA
[2018-12-07] MEDS ORDERED: CIPROFLOXACIN 250 MG TABLET PO STA (01:01)
[2018-12-07 01:07] VITALS: BP 106/65
== END 2018-12-07 01:32 | disposition home or self-care (01) ==
LOC: EDUNIT# → ED 22:01
DX: N39.0 Urinary tract infection, site not specified (principal); I44.1 Atrioventricular block, second degree; I10 Essential (primary) hypertension; E78.00 Pure hypercholesterolemia, unspecified; I25.10 Atherosclerotic heart disease of native coronary artery without angina pectoris; C18.9 Malignant neoplasm of colon, unspecified; F17.200 Nicotine dependence, unspecified, uncomplicated; E11.9 Type 2 diabetes mellitus without complications; Z79.4 Long term (current) use of insulin; Z87.440 Personal history of urinary (tract) infections
CPT/HCPCS: 36415; 70450; 80053; 81001; 83690; 84484; 85025; 85610; 85730; 87077; 87086; 87181; 93005; 96360; 99283; 99284; A9270; 80306; 80320; 81003

== ENCOUNTER 2018-12-29 08:00 | Outpatient (CLI) | payer MEDICARE ==
[2018-12-29 17:30] LABS: BASOPHILS % (AUTO) 0.3 %; EOSINOPHILS % (AUTO) 0.5 %; HGB - HEMOGLOBIN 10.8 g/dL (14.0-18.0); LYMPHOCYTES # (AUTO) 0.5 10^3/uL (1.5-3.5); MEAN CORPUSCULAR HEMOGLOBIN 26.3 pg (27.0-31.0); MEAN CORPUSCULAR HGB CONC 31.5 g/dL (32.0-36.0); MEAN CORPUSCULAR VOLUME 83.4 fL (80.0-94.0); MEAN PLATELET VOLUME 7.3 fL (7.4-11.4); MONOCYTES # (AUTO) 0.5 10^3/uL (0.0-1.0); MONOCYTES % (AUTO) 7.9 %; NEUTROPHILS # (AUTO) 4.8 10^3/uL (1.5-6.6); NEUTROPHILS % (AUTO) 82.3 %; PLT - PLATELET COUNT 467 10^3/uL (130-450); RED BLOOD COUNT 4.12 10^6/uL (4.70-6.10); RED CELL DISTRIBUTION WIDTH 17.4 % (12.0-15.0); WHITE BLOOD COUNT 5.8 x10^3/uL (4.8-10.8)
[2018-12-29 18:46] LABS: HB2 TOTAL 11.6 g/dL; HEMOGLOBIN A1C 0.45 g/dL; HEMOGLOBIN A1C % 5.7 % (4.6-6.2)
== END 2018-12-29 23:59 | disposition home or self-care (01) ==
LOC: LAB.S 08:00
PROVIDERS: ATTEND Nurse Practitioner Family
DX: E11.9 Type 2 diabetes mellitus without complications (principal); I10 Essential (primary) hypertension; E78.5 Hyperlipidemia, unspecified
CPT/HCPCS: 36415; 80053; 80061; 82043; 82570; 83036; 83721; 84443; 85025

== ENCOUNTER 2019-08-25 07:35 | Day surgery (SDC) | payer MEDICARE, OTHER ==
[2019-08-25] MEDS ORDERED: LACTATED RINGERS 1,000 ML IV ONE (07:38)
[2019-08-25 09:57] VITALS: BP 115/77
== END 2019-08-25 07:36 | disposition home or self-care (01) ==
LOC: SDS 07:35
PROVIDERS: ATTEND Internal Medicine Gastroenterology
PROC: 0DJD8ZZ Inspection of Lower Intestinal Tract, Via Natural or Artificial Opening Endoscopic (ICD-10-PCS; principal; 2019-08-25 08:30)
DX: C18.2 Malignant neoplasm of ascending colon (principal); K57.30 Diverticulosis of large intestine without perforation or abscess without bleeding; Z90.49 Acquired absence of other specified parts of digestive tract; D64.9 Anemia, unspecified; I44.1 Atrioventricular block, second degree; I25.10 Atherosclerotic heart disease of native coronary artery without angina pectoris; I10 Essential (primary) hypertension; N40.1 Benign prostatic hyperplasia with lower urinary tract symptoms; N13.8 Other obstructive and reflux uropathy; E87.5 Hyperkalemia; E11.9 Type 2 diabetes mellitus without complications; F10.20 Alcohol dependence, uncomplicated; I42.6 Alcoholic cardiomyopathy; Z87.891 Personal history of nicotine dependence; Z79.4 Long term (current) use of insulin; Z79.82 Long term (current) use of aspirin
CPT/HCPCS: 45378; J7120

== ENCOUNTER 2019-10-26 13:25 | Outpatient (CLI) | payer OTHER, MEDICARE | END 2019-10-26 13:26 | disposition short-term general hospital (02) | LOC: EMS 13:25 | PROVIDERS: ATTEND Surgery | DX: S09.90XA Unspecified injury of head, initial encounter (principal); R46.4 Slowness and poor responsiveness; V58.5XXA Driver of pick-up truck or van injured in noncollision transport accident in traffic accident, initial encounter; Y92.413 State road as the place of occurrence of the external cause | CPT/HCPCS: A0425; A0427 ==

== ENCOUNTER 2019-11-06 11:38 | Outpatient (CLI) | payer MEDICARE ==
[2019-11-06 15:52] LABS: BASOPHILS % (AUTO) 0.6 %; EOSINOPHILS # (AUTO) 0.1 10^3/uL (0.0-0.7); EOSINOPHILS % (AUTO) 0.9 %; HGB - HEMOGLOBIN 12.8 g/dL (14.0-18.0); LYMPHOCYTES # (AUTO) 1.4 10^3/uL (1.5-3.5); LYMPHOCYTES % (AUTO) 22.2 %; MEAN CORPUSCULAR HEMOGLOBIN 31.7 pg (27.0-31.0); MEAN CORPUSCULAR HGB CONC 32.2 g/dL (32.0-36.0); MEAN CORPUSCULAR VOLUME 98.5 fL (80.0-94.0); MEAN PLATELET VOLUME 9.3 fL (7.4-11.4); MONOCYTES # (AUTO) 0.6 10^3/uL (0.0-1.0); MONOCYTES % (AUTO) 10.1 %; NEUTROPHILS # (AUTO) 4.2 10^3/uL (1.5-6.6); NEUTROPHILS % (AUTO) 65.7 %; PLT - PLATELET COUNT 294 10^3/uL (130-450); RED BLOOD COUNT 4.04 10^6/uL (4.70-6.10); RED CELL DISTRIBUTION WIDTH 12.2 % (12.0-15.0); WHITE BLOOD COUNT 6.3 x10^3/uL (4.8-10.8)
[2019-11-06 16:27] LABS: ALBUMIN 3.9 g/dL (3.2-5.5); BILIRUBIN,TOTAL 0.8 mg/dL (0.2-1.0); CALCIUM 9.5 mg/dL (8.5-10.3); CREATININE 1.2 mg/dL (0.6-1.2); TOTAL PROTEIN 7.9 g/dL (6.7-8.2)
[2019-11-06 16:40] LABS: HB2 TOTAL 13.2 g/dL; HEMOGLOBIN A1C 0.66 g/dL; HEMOGLOBIN A1C % 6.7 % (4.6-6.2)
[2019-11-06 18:28] LABS: CREATININE,URINE 193.6 mg/dL; MICROALBUMIN,URINE 24.4 mg/dL (0-300.0)
== END 2019-11-06 11:39 | disposition home or self-care (01) ==
LOC: LAB.S 11:38
PROVIDERS: ATTEND Physician Assistant
DX: D64.9 Anemia, unspecified (principal); Z79.4 Long term (current) use of insulin; I10 Essential (primary) hypertension; E78.5 Hyperlipidemia, unspecified; E11.9 Type 2 diabetes mellitus without complications
CPT/HCPCS: 36415; 80053; 82043; 82570; 83036; 85025

== ENCOUNTER 2019-11-25 17:59 | Outpatient (CLI) | payer MEDICARE | END 2019-11-25 18:00 | disposition home or self-care (01) | LOC: COV 17:59 | PROVIDERS: ATTEND Family Medicine | DX: R05 Cough (principal); R06.02 Shortness of breath; R06.2 Wheezing | CPT/HCPCS: 81599 ==

== ENCOUNTER 2020-03-15 12:34 | Observation (INO) | payer MEDICARE ==
[2020-03-15 13:19] LABS: BASOPHILS # (AUTO) 0.1 10^3/uL (0.0-0.1); BASOPHILS % (AUTO) 0.9 %; EOSINOPHILS # (AUTO) 0.1 10^3/uL (0.0-0.7); HGB - HEMOGLOBIN 12.5 g/dL (14.0-18.0); LYMPHOCYTES % (AUTO) 16.9 %; MEAN CORPUSCULAR HEMOGLOBIN 31.7 pg (27.0-31.0); MEAN CORPUSCULAR HGB CONC 33.4 g/dL (32.0-36.0); MEAN CORPUSCULAR VOLUME 94.9 fL (80.0-94.0); MEAN PLATELET VOLUME 9.2 fL (7.4-11.4); MONOCYTES # (AUTO) 0.8 10^3/uL (0.0-1.0); MONOCYTES % (AUTO) 13.4 %; NEUTROPHILS # (AUTO) 3.9 10^3/uL (1.5-6.6); NEUTROPHILS % (AUTO) 67.5 %; PLT - PLATELET COUNT 237 10^3/uL (130-450); RED BLOOD COUNT 3.94 10^6/uL (4.70-6.10); RED CELL DISTRIBUTION WIDTH 13.3 % (12.0-15.0); WHITE BLOOD COUNT 5.7 x10^3/uL (4.8-10.8)
--- NOTE | 2020-03-15 13:20 | ED Physician Documentation ---
History of Present Illness - Stated complaint Stated Complaint: LOSS OF APPETITE/NAUSEA - Chief complaint Chief Complaint: General - History obtained from History obtained from: Patient, Family - History of Present Illness Timing: Prior to arrival - Additonal information Additional information: 80-year-old gentleman here for evaluation of progressive weight loss, loss of appetite. History is obtained from both the daughter and the patient. History difficult from patient as he does have some baseline dementia. He does state that he has lost approximately 30 pounds over the last 3 months. (160 ---> 130). His daughter confirms this. Patient often has no appetite at all and when he does eat he will often gag or vomit on the food.Daughter also reports that over the last week he has fallen twice. He was found once in his garden and wants this morning on the bathroom floor. Daughter reports that patient was seen at primary care office about 3 weeks ago for this concern. Some appetite or stimulant for the intestines was ordered but did not help. Patient denies chest pain, black or bloody stools. He denies any cough or night sweats. 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 He had a right hemicolectomy in May 2018 as well as some adjunct chemotherapy.Seen in the past by Dr. brady of hematology and oncology [facility]: dm, peripheral neuropathy, dementia, colon cancer soc: former smoker; former ETOH. Patient does live independently though his family typically will check on him twice a day meds: Donezepil, memantzine, metformin, lisinopril hydrochlorothiazide, Wellbutrin. pcp: Dr. Thea Otto ([place]) Review of Systems Unable to obtain: Dementia Constitutional: reports: Weight Loss. denies: Fever, Chills Eyes: denies: Loss of vision Ears: denies: Ear pain Throat: denies: Dental pain / toothache, Oral lesions / sores Cardiac: denies: Chest pain / pressure, Palpitations Respiratory: denies: Dyspnea, Cough GI: reports: Nausea, Vomiting. denies: Abdominal Pain, Constipation, Diarrhea, Hematemesis, Bloody / black stool : denies: Dysuria, Frequency Skin: denies: Rash, Lesions Musculoskeletal: denies: Neck pain, Back pain Neurologic: reports: Generalized weakness. denies: Numbness, Difficulty speaking, Near syncope PD PAST MEDICAL HISTORY - Past Medical History Cardiovascular: Hypertension, High cholesterol, Coronary artery disease, Atrial fibrillation, Other Respiratory: None Neuro: Dementia Endocrine/Autoimmune: Type 2 diabetes GI: Other : Incontinence, Renal insuffiency HEENT: Other Psych: Depression Musculoskeletal: None Derm: None Other Past Medical History: colon cancer - Past Surgical History Past Surgical History: Yes General: Gastric surgery, Colonoscopy, Other HEENT: Cataracts - Present Medications Home Medications: Ambulatory Orders Medication Instructions Recorded Confirmed Insulin Glargine,Hum.rec.anlog 16 unit SQ DAILY 01/20/16 03/15/20 [Lantus] Bupropion HCl [Bupropion Xl] 150 mg ORAL DAILY 03/15/20 03/15/20 Donepezil HCl 10 mg PO DAILY PM 03/15/20 03/15/20 Lisinopril/Hydrochlorothiazide 1 tab ORAL DAILY 03/15/20 03/15/20 [Lisinopril-Hctz 20-12.5 mg Tab] Memantine HCl 5 mg PO DAILY 03/15/20 03/15/20 Metformin HCl 1,000 mg PO BID 03/15/20 03/15/20 amLODIPine [Norvasc] 5 mg PO DAILY #7 tablet 03/15/20 - Allergies Allergies/Adverse Reactions: Allergies Allergy/AdvReac Type Severity Reaction Status Date / Time Penicillins Allergy Unknown Verified 03/15/20 12:40 - Social History Does the pt smoke?: Yes Smoking Status: Former smoker Does the pt drink ETOH?: No Does the pt have substance abuse?: No - Immunizations Immunizations are current?: Yes Immunizations: TDAP >10years/unknown - POLST Patient has POLST: No POLST Status: Full Code PD ED PE EXPANDED - General General: Alert, No acute distress - Eyes Eyes: PERRL - Neck Neck: Supple w/out meningeal sx, No tenderness. No: Soft tissue TTP - Cardiac Cardiac: Regular Rate, Radial strong equal, Pedal strong equal, Cap refill < 2 sec - Respiratory Respiratory: Clear to ausultation kate. No: Distress, Labored - Abdomen Abdomen: Normal Bowel sounds. No: Tender to palpation - Derm Derm: Normal color. No: Warm and dry, Pale - Extremities Extremities: Normal. No: Deformity, Tenderness, Pedal edema bilateral - Neuro Neuro: Confused (baseline dementia), CNII-XII intact Results - Vitals Vitals: Vital Signs - 24 hr 03/15/20 03/15/20 03/15/20 12:40 13:00 13:30 Temperature 36.6 C Heart Rate 82 94 64 Respiratory 16 28 H 19 Rate Blood Pressure 96/57 L 140/96 H 113/68 O2 Saturation 91 L 98 98 03/15/20 03/15/20 03/15/20 14:16 14:30 15:18 Temperature Heart Rate 70 75 81 Respiratory 14 18 14 Rate Blood Pressure 118/75 113/76 113/68 O2 Saturation 98 96 100 Oxygen O2 Source Room air - EKG (time done) 1252 Rate: Rate (enter#) (76) Rhythm: Other (second degree block II) Lander: Anterior hemiblock, Other Intervals: 2nd degree AVB type 2 QRS: Normal Ischemia: Normal ST segments Compare to prior EKG: Unchanged from prior EKG - Labs Labs: Laboratory Tests 03/15/20 03/15/20 03/15/20 13:00 13:00 13:00 WBC 5.7 RBC 3.94 L Hgb 12.5 L Hct 37.4 L MCV 94.9 H MCH 31.7 H MCHC 33.4 RDW 13.3 Plt Count 237 MPV 9.2 Neut # (Auto) 3.9 Lymph # (Auto) 1.0 L [place] # (Auto) 0.8 Eos # (Auto) 0.1 Baso # (Auto) 0.1 Absolute Nucleated RBC 0.00 Nucleated RBC % 0.0 Sodium 137 Potassium 4.3 Chloride 95 L Carbon Dioxide 27 Anion Gap 15.0 H BUN 50 H Creatinine 2.1 H Estimated GFR (MDRD) 31 L Glucose 97 Calcium 10.0 Total Bilirubin 0.8 AST 24 ALT 18 Alkaline Phosphatase 59 Troponin I High Sens 6.9 Total Protein 8.7 H Albumin 4.2 Globulin 4.5 H Albumin/Globulin Ratio 0.9 L Lipase 49 Urine Color Urine Clarity Urine pH Ur Specific [place] Urine Protein Urine Glucose (UA) Urine Ketones Urine Occult Blood Urine Nitrite Urine Bilirubin Urine Urobilinogen Ur Leukocyte Esterase Ur Microscopic Review Urine Culture Comments 03/15/20 14:09 WBC RBC Hgb Hct MCV MCH MCHC RDW Plt Count MPV Neut # (Auto) Lymph # (Auto) [place] # (Auto) Eos # (Auto) Baso # (Auto) Absolute Nucleated RBC Nucleated RBC % Sodium Potassium Chloride Carbon Dioxide Anion Gap BUN Creatinine Estimated GFR (MDRD) Glucose Calcium Total Bilirubin AST ALT Alkaline Phosphatase Troponin I High Sens Total Protein Albumin Globulin Albumin/Globulin Ratio Lipase Urine Color DARK YELLOW Urine Clarity CLEAR Urine pH 6.0 Ur Specific [place] 1.020 Urine Protein NEGATIVE Urine Glucose (UA) NEGATIVE Urine Ketones NEGATIVE Urine Occult Blood NEGATIVE Urine Nitrite NEGATIVE Urine Bilirubin NEGATIVE Urine Urobilinogen 1 (NORMAL) Ur Leukocyte Esterase NEGATIVE Ur Microscopic Review NOT INDICATED Urine Culture Comments NOT INDICATED - Rads (name of study) cxr Radiology: Final report received (Stable examination of the chest with left greater than right chronic interstitial changes/fibrosis. No new focal consolidations identified) PD MEDICAL DECISION MAKING - ED course Complexity details: reviewed old records, reviewed results, re-evaluated patient, considered differential, d/w patient, d/w family ED course: 80-year-old gentleman presents to the emergency department for evaluation of progressive weight loss, lack of appetite that has been occurring over the last 3 months but acutely worse in the last 2 to 3 weeks. His history is preceded by a previous a sending colon adenocarcinoma status post right hemicolectomy in 2018 with adjuvant chemotherapy. Patient did not complete the full course of chemotherapy secondary to side effects - Labs today are most notable for new renal insufficiency. Creatinine today of 2.1, This patient's baseline creatinine appears to be in the 1.1-1.4 range. His GFR today is 31. I have repleted him with 2 L of IV fluids - I have spoken with utilization management and this gentleman can Be brought into the emergency department for observation status if necessary to further monitor his renal function and perform CT imaging with contrast if function improves. His weight loss and lack of appetite is certainly worrisome for recurrence of his cancer though without CT imaging today cannot confirm this Departure - Departure Disposition: ED Place in Observation Clinical Impression: Renal insufficiency, Weight loss, Lack of appetite Condition: Serious Record reviewed to determine appropriate education?: Yes Prescriptions: amLODIPine [Norvasc] 5 mg PO DAILY #7 tablet
[2020-03-15 13:22] LABS: ALBUMIN 4.2 g/dL (3.2-5.5); ALBUMIN/GLOBULIN RATIO 0.9 (1.0-2.2); BILIRUBIN,TOTAL 0.8 mg/dL (0.2-1.0); CREATININE 2.1 mg/dL (0.6-1.2); TOTAL PROTEIN 8.7 g/dL (6.7-8.2)
[2020-03-15] MEDS ORDERED: SODIUM CHLORIDE 0.9% 1,000 ML IV STA ×2 (13:26→14:44)
--- NOTE | 2020-03-15 13:37 | XRAY Report ---
PROCEDURE: Chest 1 View X-Ray INDICATIONS: Chest Pain TECHNIQUE: One view of the chest was acquired. COMPARISON: 07/14/[address] chest dated 07/20/2019 FINDINGS: Surgical changes and devices: None. Lungs and pleura: No pleural effusions or pneumothorax. Stable appearance of diffuse patchy, reticul ar opacities at the left mid and lower lung zones compatible with chronic interstitial lung disease/f ibrosis noted on comparison CT. No focal consolidations. Minimal reticular opacities of the right hem ithorax, also stable. Mediastinum: Cardiomediastinal contours are stable. Atherosclerotic calcifications of the aortic arch . Heart size is stable. Bones and chest wall: No suspicious bony lesions. Overlying soft tissues appear unremarkable. IMPRESSION: Stable examination of the chest with left greater than right chronic interstitial changes/fibrosis. N o new focal consolidations identified. Reviewed by: Chuck Villarreal MD on 03/15/2020 1:36 PM PDT Approved by: Chuck Villarreal MD on 03/15/2020 1:36 PM PDT Station ID: [id number]
[2020-03-15 14:12] LABS: BILIRUBIN,URINE NEGATIVE (NEGATIVE); GLUCOSE, URINE (UA) NEGATIVE (NEGATIVE); KETONES,URINE (UA) NEGATIVE (NEGATIVE); LEUKOCYTE ESTERASE, URINE NEGATIVE (NEGATIVE); NITRITE,URINE NEGATIVE (NEGATIVE); OCCULT BLOOD,URINE NEGATIVE (NEGATIVE); PROTEIN,URINE NEGATIVE (NEGATIVE); UROBILINOGEN,URINE 1 (NORMAL) E.U./dL (NORMAL)
[2020-03-15 14:15] LABS: CLARITY,URINE CLEAR (CLEAR)
[2020-03-15] MEDS ORDERED: SODIUM CHLORIDE FLUSH 0.9% 10 ML SYRINGE IVP PRN (15:57)
[2020-03-15] MEDS ORDERED: ONDANSETRON 4 MG/2 ML VIAL IVP PRN (15:57)
[2020-03-15] MEDS ORDERED: ACETAMINOPHEN 325 MG TABLET PO PRN (15:57)
--- NOTE | 2020-03-15 16:04 | HISTORY & PHYSICAL EXAMINATION ---
Chief Complaint - Chief Complaint Chief Complaint: Poor appetite and fall History of Present Illness - Admitted From Admitted From:: Home - History Obtained From Records Reviewed: Yes History obtained from: Patient, ER Provider, EMR - History of Present Illness HPI Comment/Other: This is a 80-year-old male with a past medical history significant for stage IV colon cancer status post hemicolectomy and brief treatment with 5-fluorouracil, hypertension, chronic kidney disease, dementia who presents today complaining of poor appetite and a fall at home. He states he had a poor appetite for the past couple of weeks associated with a 30 pound weight loss. He believes weight loss has been going on longer than the poor appetite. He states he fell yesterday at home while he was in the bathroom and could not get back up. He denied any syncope, loss of consciousness, chest pain, dyspnea, palpitations. He believes he may have hit his head but reports no focal deficits and denies any bleeding or scalp abnormalities. He is not on any blood thinners at home. He states he has had poor appetite due to fear of vomiting. He has not vomited after every meal but he is scared to eat. He states he has been having about 1 meal a day. He has not yet had a meal today. His daughter checks on him 2-3 times a day and provides him with meals at home. She tells me that he will have an appetite to eat but he gets concern about vomiting and will begin to gag taking a bite of certain foods. He reports no diarrhea. Might have occasional constipation. Denies early satiety. Reports no fevers or chills. He does have a history of stage IV colon cancer. He was treated with 5-fluorouracil from July 2018 to August 2018. This was discontinued early due to side effects. He did have a colonoscopy earlier this year which did not show any masses. His last CEA was within normal limits. His daughter tells me he did try an appetite stimulant about a year and a half ago and he took it again this morning but he does not take it frequently as it is a liquid and he does not like the taste of it. She cannot recall the name of the stimulator is. In the emergency department, he was found to be hemodynamically stable. Labs are his neck and for a creatinine of 2.1 compared to baseline of approximately 1-1.3. His BUN was also elevated at 50 compared to his baseline in the 20s. Troponin is within normal limits. His EKG did show a possible second-degree heart block, Mobitz type II although this was present on his prior EKG. His heart rates have been stable in the 70s to 80s. Given the above findings, medicine was consulted for admission. I did discuss goals of care the patient and he would like to be a full code. History - Past Medical History Cardiovascular: reports: Hypertension, High cholesterol, Coronary artery disease, Other Respiratory: reports: None Neuro: reports: Dementia Endocrine/Autoimmune: reports: Type 2 diabetes GI: reports: Other (Colon cancer) : reports: Incontinence, Renal insuffiency HEENT: reports: Other Psych: reports: Depression Musculoskeletal: reports: None Derm: reports: None MRSA Hx?: No Other Past Medical History: colon cancer - Past Surgical History General: reports: Gastric surgery (Right hemicolectomy.), Colonoscopy HEENT: reports: Cataracts - Family & Social History Family History Comment/Other: Reports mother from a stroke. She did have a history of breast cancer. He does not believe his parents had coronary artery disease. Does not recall any other family history. Living arrangement: At home Living Situation: Alone Social History Notes: He reports living alone at home. He did smoke from age of 16 to the age of 36 about a pack a day. He did drink alcohol although he denied daily use. He did quit about 1 year ago. Review of prior records show he was drinking about 6-9 beers a day and quit what would be about 2 to 3 years ago now. 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 - Substance History Use: Uses substance without health or social issues: NONE - POLST Patient has POLST: No POLST Status: Full Code Meds/Allgy - Home Medications Home Medications: Ambulatory Orders Medication Instructions Recorded Confirmed Insulin Glargine,Hum.rec.anlog 17 unit SQ DAILY 01/20/16 03/15/20 [Lantus] Bupropion HCl [Bupropion Xl] 150 mg ORAL DAILY 03/15/20 03/15/20 Donepezil HCl [Aricept] 10 mg PO QPM 03/15/20 03/15/20 Lisinopril/Hydrochlorothiazide 1 tab ORAL DAILY 03/15/20 03/15/20 [Lisinopril-Hctz 20-12.5 mg Tab] Memantine [Namenda] 5 mg PO DAILY 03/15/20 03/15/20 amLODIPine [Norvasc] 5 mg PO DAILY #7 tablet 03/15/20 metFORMIN [Glucophage] 1,000 mg PO BID 03/15/20 03/15/20 - Allergies Allergies/Adverse Reactions: Allergies Allergy/AdvReac Type Severity Reaction Status Date / Time Penicillins Allergy Unknown Verified 03/15/20 12:40 Review of Systems - Constitutional Constitutional: reports: Fatigue, Weakness, Poor appetite, Weight loss. denies: Fever, Chills - Ears, Nose & Throat Ears, Nose & Throat: denies: Postnasal drainage, Sore throat - Cardiovascular Cariovascular: reports: Lightheadedness. denies: Palpitations, Chest pain, Edema, Syncope, Exertional dyspnea, Decr. exercise tolerance - Respiratory Respiratory: denies: Cough, SOB at rest, SOB with exertion - Gastrointestinal Gastrointestinal: reports: Vomiting. denies: Abdominal pain, Constipation, Diarrhea, Change in bowel habits, Nausea, Isai blood emesis - Genitourinary Genitourinary: denies: Dysuria, Frequency, Hematuria - Musculoskeletal Musculoskeletal: denies: Muscle pain, Limited range of motion, Muscle weakness - Integumentary Integumentary: denies: Rash - Neurological Neurological: reports: General weakness, Dizziness, Memory problems. denies: Focal weakness - All Other Systems All Other Systems: reports: Reviewed and negative Prior Level of Functionality: He does live alone at home. He ambulates with a walker or cane at baseline. His daughter does check on him frequently and provides him with meals 2-3 times a day. Exam - Vital Signs Reviewed Vital Signs: Yes Vital Signs: Vital Signs x48h Temp Pulse Resp BP Pulse Ox 03/15/20 15:18 81 14 113/68 100 03/15/20 14:30 75 18 113/76 96 03/15/20 14:16 70 14 118/75 98 03/15/20 13:30 64 19 113/68 98 03/15/20 13:00 94 28 H 140/96 H 98 03/15/20 12:40 36.6 C 82 16 96/57 L 91 L - Physical Exam General Appearance: positive: No acute distress, Alert Eyes Bilateral: positive: Normal inspection, Conjunctivae nml ENT: positive: Dry mucous membranes. negative: No signs of dehydration Neck: positive: Nml inspection Respiratory: positive: No respiratory distress. negative: Wheezes, Rales Cardiovascular: positive: Regular rate & rhythm, No murmur. negative: Tachycardia, Systolic murmur Abdomen: positive: Non-tender, No distention. negative: Tenderness, Guarding, Rebound Skin: positive: Warm, Dry Extremities: positive: Full ROM, No pedal edema Neurologic/Psychiatric: positive: Disoriented to time (He think it is February of 2005.). negative: Disoriented to person, Disoriented to place Conclusion/Plan - Problem List (1) BEVERLEY (acute kidney injury) Conclusion/Plan: This is likely pre-renal injury given his poor oral intake and dehydration. His creatinine is nearly doubled compared to baseline. Received 2 litres of saline in the emergency department. We will place in observation and continue him on lactated ringers at 100mL/hr. Hold Lisinopril and HCTZ. Trend BMP. Will obtain renal ultrasound if no improvement with IV fluids. (2) Adult failure to thrive Conclusion/Plan: He has had poor oral intake for quite some time now with associated weight loss. We will need to rule out recurrence although colonoscopy earlier this year did not reveal any mass in his CEA was within normal limits. We will consult nutrition. Start him on low-dose Remeron. Ensure TID with meals. We will look to taper his Wellbutrin. Will consider CT of the abdomen/pelvis once his renal function improves. (3) Vomiting alone Conclusion/Plan: Both he and his daughter tell me that he is fearful of eating due to vomiting. He does not vomit after every meal and reports no nausea. This is likely causing him to have poor oral intake due to fear of vomiting and causing his weight loss. We will obtain imaging tomorrow after his renal function improves. We will consider a general surgery consult for endoscopy if he vomits during his hospitalization otherwise this can be completed on outpatient basis. Zofran as needed. Soft mechanical diet. (4) Fall at home Conclusion/Plan: This likely secondary to dehydration and hyponatremia. He denies any syncope. His EKG is concerning for possible second-degree A-V block, mobitz type II and this was present on prior EKG. His heart rate is stable in the 70s. We will monitor him on telemetry and repeat EKG. Initial troponin is negative. Will consider echocardiogram. Check TSH. No focal deficits on exam so we will not obtain a CT of the head. Qualifiers: Encounter type: initial encounter Qualified Code(s): W19.XXXA - Unspecified fall, initial encounter; Y92.009 - Unspecified place in unspecified non- institutional (private) residence as the place of occurrence of the external cause (5) Hx of colon cancer, stage IV Conclusion/Plan: He has history of ascending colon cancer status post right hemicolectomy. He was treated with 5-FU for two months but this was discontinued in August of 2018 d ue to triny effects. Most recent colonoscopy showed no obvious mass and CEA was within normal limits. (6) Insulin dependent diabetes mellitus Conclusion/Plan: His last A1c was 6.7%. We will continue his home dose of Lantus and sliding scale. Carb controlled diet. (7) HTN (hypertension) Conclusion/Plan: He is currently normotensive. We will hold his home lisinopril and hydrochlorothiazide. If he does become hypertensive then we will start him on amlodipine. Qualifiers: Hypertension type: essential hypertension Qualified Code(s): I10 - Essential (primary) hypertension (8) Dementia Conclusion/Plan: Oriented to self and location but he thought it was 2004 and the month was February. We will continue his home medications. Social work consult as he does live alone and will likely need assistance given his dementia. - Lab Results Lab results reviewed: Yes Fish Bones: 03/15/20 13:00 03/15/20 13:00 - EKG Results EKG Interpreted Independently: Yes EKG Comparison: Unchanged from prior EKG Core Measures - Anticipated LOS I expect patient to be DC'd or transferred within 96 hours.: Yes - Issues Hospital Issues and Management Plan: 80-year-old male with history of stage IV adenocarcinoma the rectum in remission presents with weight loss and failure to thrive. Found to have acute kidney injury on labs. Will admit for IV fluids and will repeat imaging of the abdomen and pelvis for further evaluation - DVT/VTE - Prophylaxis VTE/DVT Device ordered at admit?: Yes VTE/DVT Prophylaxis med ordered at admit?: Yes
[2020-03-15] MEDS: LACTATED RINGERS 1,000 ML IV SCH (16:55)
[2020-03-15] MEDS: SODIUM CHLORIDE FLUSH 0.9% 10 ML SYRINGE IVP SCH ×2 (16:55→23:40)
[2020-03-15] MEDS: INSULIN ASPART 300 UNIT/3 ML PEN SUBQ SCH ×2 (16:55→20:48)
--- NOTE | 2020-03-15 17:48 | PHARMACY PROGRESS NOTE ---
- Best Possible Medication History Admit Date and Time: 03/15/20 1557 Processed by: Pharmacy Medication History completed: Yes Patient Interview: Completed Secondary Source(s): Pharmacy records (PATIENT INTERVIEWED BY GRADE FOREMAN. PATIENT'S SPOUSE CONFIRMED WITH LIST. PATIENT HAS NOT BEEN TAKING METFORMIN, ARICEPT, NOR NAMENDA FOR PAST WEEK DUE TO STOMACH UPSET), Insurance records As the person ultimately responsible for medication therapy, providers are able to order a medication from an existing home medication list in [facility] via the "Reconcile Routine" prior to Confirmation of that medication by technical support director. Such practice is discouraged except when the physician, in their clinical judgment, deems that a medical need exists for a medication without regard to previous use.
[2020-03-15] MEDS ORDERED: DONEPEZIL 5 MG TABLET PO SCH (21:00)
[2020-03-15] MEDS ORDERED: MIRTAZAPINE 15 MG TABLET PO SCH (21:00)
[2020-03-16] MEDS: LACTATED RINGERS 1,000 ML IV SCH (02:34)
[2020-03-16 05:28] LABS: BASOPHILS % (AUTO) 0.8 %; EOSINOPHILS # (AUTO) 0.1 10^3/uL (0.0-0.7); EOSINOPHILS % (AUTO) 1.6 %; LYMPHOCYTES # (AUTO) 1.3 10^3/uL (1.5-3.5); LYMPHOCYTES % (AUTO) 25.1 %; MEAN CORPUSCULAR HEMOGLOBIN 30.6 pg (27.0-31.0); MEAN CORPUSCULAR HGB CONC 31.3 g/dL (32.0-36.0); MEAN CORPUSCULAR VOLUME 97.6 fL (80.0-94.0); MEAN PLATELET VOLUME 9.3 fL (7.4-11.4); MONOCYTES # (AUTO) 0.8 10^3/uL (0.0-1.0); MONOCYTES % (AUTO) 14.9 %; NEUTROPHILS # (AUTO) 2.9 10^3/uL (1.5-6.6); NEUTROPHILS % (AUTO) 57.4 %; PLT - PLATELET COUNT 193 10^3/uL (130-450); RED BLOOD COUNT 3.27 10^6/uL (4.70-6.10); RED CELL DISTRIBUTION WIDTH 13.6 % (12.0-15.0); WHITE BLOOD COUNT 5.1 x10^3/uL (4.8-10.8)
[2020-03-16 05:46] LABS: CALCIUM 9.1 mg/dL (8.5-10.3); CREATININE 1.6 mg/dL (0.6-1.2); MAGNESIUM 1.9 mg/dL (1.7-2.8); PHOSPHORUS 2.1 mg/dL (2.5-4.6)
[2020-03-16 06:16] LABS: HB2 TOTAL 10.5 g/dL; HEMOGLOBIN A1C 0.41 g/dL; HEMOGLOBIN A1C % 5.7 % (4.6-6.2)
[2020-03-16] MEDS: SODIUM CHLORIDE FLUSH 0.9% 10 ML SYRINGE IVP SCH (06:16)
[2020-03-16] MEDS ORDERED: PANTOPRAZOLE 40 MG VIAL IVP SCH (07:00)
[2020-03-16] MEDS: INSULIN ASPART 300 UNIT/3 ML PEN SUBQ SCH ×2 (07:52→12:15)
[2020-03-16] MEDS ORDERED: NEUTRA-PHOS 250 MG TABLET PO ONE (08:00)
[2020-03-16] MEDS ORDERED: MEMANTINE 5 MG TABLET PO SCH (09:00)
[2020-03-16] MEDS ORDERED: INSULIN GLARGINE 300 UNIT/3 ML PEN SUBQ SCH (09:00)
[2020-03-16] MEDS ORDERED: buPROPion XL 150 MG TABLET PO SCH (09:00)
[2020-03-16] MEDS ORDERED: HEPARIN 5,000 UNIT/ML VIAL SUBQ SCH (09:00)
--- NOTE | 2020-03-16 10:49 | Discharge Plan ---
Discharge Plan Problem Reviewed?: Yes Disposition: Home Health Service Condition: Stable Prescriptions: Insulin Glargine [Lantus Solostar] 10 unit SUBQ DAILY #2 pen Mirtazapine [Remeron] 15 mg PO QPM #30 tablet Ondansetron Odt [Zofran Odt] 4 mg TL Q6H PRN #10 tablet PRN Reason: Nausea / Vomiting Health Concerns: You are seen in the hospital because of dehydration. This caused your kidney numbers to be a little bit elevated. They have improved after receiving IV fluids. Your been able to eat dinner and breakfast without any vomiting or abdominal pain. Plan of Treatment: Please decrease your Lantus dose to 10 units every morning rather than 17 units as your blood sugars have been on the lower end of normal. Your A1c was 5.7% which shows your diabetes is very well controlled and given your poor oral i ntake overall, it is better to have a slightly higher blood sugar then too low blood sugar. Please stop taking Wellbutrin as this can cause you to lose weight. I have prescribed you Remeron which is an appetite stimulator. Please stop taking your blood pressure medications as well as this can affect your kidneys and your blood pressure has been normal during this hospitalization. I have prescribed some nausea medication to take at home as needed to help with your nausea Care Goals: These follow-up with your primary care physician. You might need a CT scan of your abdomen to ensure that your cancer has not returned. Additional Instructions or Follow Up instructions: Please follow-up with your primary care physician within 1 week. No Smoking: If you smoke, Please STOP! Call for help. Follow-up with: ABRAM ENCARNACION PA-C [Primary Care Provider] -
--- NOTE | 2020-03-16 11:17 | DISCHARGE SUMMARY ---
"Discharge Summary Admit Date: 03/15/20 Discharge Date: 03/16/20 Discharging Provider: Charles Cabral Primary Care Provider: Thea Otto Code Status: Attempt Resuscitation Condition at Discharge: Stable Discharge Disposition: 06 Home Health Service - DIAGNOSES Admission Diagnoses: Acute kidney injury Adult failure to thrive Vomiting alone Fall at home History of colon cancer, stage IV Insulin-dependent diabetes mellitus Hypertension Dementia Discharge Diagnoses with Status of Each Condition: Acute kidney injury - improving Adult failure to thrive - stable. Vomiting alone - resolved. Fall at home - stable. History of colon cancer, stage IV - stable. Insulin-dependent diabetes mellitus - stable. Hypertension - stable. Dementia - stable. Severe protein calorie malnutrition - stable. - HPI History of Present Illness: This is a 80-year-old male with a past medical history significant for stage IV colon cancer status post hemicolectomy and brief treatment with 5-fluorouracil, hypertension, chronic kidney disease, dementia who presents today complaining of poor appetite and a fall at home. He states he had a poor appetite for the past couple of weeks associated with a 30 pound weight loss. He believes weight loss has been going on longer than the poor appetite. He states he fell yesterday at home while he was in the bathroom and could not get back up. He denied any syncope, loss of consciousness, chest pain, dyspnea, palpitations. He believes he may have hit his head but reports no focal deficits and denies any bleeding or scalp abnormalities. He is not on any blood thinners at home. He states he has had poor appetite due to fear of vomiting. He has not vomited after every meal but he is scared to eat. He states he has been having about 1 meal a day. He has not yet had a meal today. His daughter checks on him 2-3 times a day and provides him with meals at home. She tells me that he will have an appetite to eat but he gets concern about vomiting and will begin to gag taking a bite of certain foods. He reports no diarrhea. Might have occasional constipation. Denies early satiety. Reports no fevers or chills. He does have a history of stage IV colon cancer. He was treated with 5-fluorouracil from July 2018 to August 2018. This was discontinued early due to side effects. He did have a colonoscopy earlier this year which did not show any masses. His last CEA was within normal limits. His daughter tells me he did try an appetite stimulant about a year and a half ago and he took it again this morning but he does not take it frequently as it is a liquid and he does not like the taste of it. She cannot recall the name of the stimulator is. In the emergency department, he was found to be hemodynamically stable. Labs are his neck and for a creatinine of 2.1 compared to baseline of approximately 1-1.3. His BUN was also elevated at 50 compared to his baseline in the 20s. Troponin is within normal limits. His EKG did show a possible second-degree heart block, Mobitz type II although this was present on his prior EKG. His he art rates have been stable in the 70s to 80s. Given the above findings, medicine was consulted for admission. I did discuss goals of care the patient and he would like to be a full code. - CONSULTS | PROCEDURES Consultations: Social Work, PT, Nutrition - HOSPITAL COURSE Hospital Course: He is admitted to the floor for IV hydration given his acute kidney injury. He had been vomiting at home but is able to eat both dinner and breakfast without any episodes of emesis. He also had no abdominal pain. The following day his creatinine had improved to 1.6. We did not obtain a CT of the abdomen pelvis given his creatinine was still slightly elevated and the fact that he had no abdominal pain or episodes of emesis. I did discontinue his Wellbutrin as this can cause weight loss. I started him on Remeron as an appetite stimulator. His blood goes had been very well controlled during his hospitalization and his A1c was around 5.6% and so I decreased his home dose of Lantus to 10 units and continue the metformin. He will need outpatient follow-up with his primary care provider as he may ultimately need the insulin discontinued. He has also been normotensive during this hospitalization and so his home lisino pril/hydrochlorothiazide and amlodipine were discontinued on discharge. He was evaluated by physical therapy given his falls and he did have issues with his balance and poor gait. This improved with a walker which she will go home with. He will also continue with home health PT. - ALLERGIES Allergies/Adverse Reactions: Allergies Allergy/AdvReac Type Severity Reaction Status Date / Time Penicillins Allergy Unknown Verified 03/15/20 12:40 - MEDICATIONS Home Medications: Ambulatory Orders Medication Instructions Recorded Confirmed Donepezil HCl [Aricept] 10 mg PO QPM 03/15/20 03/15/20 Memantine [Namenda] 5 mg PO DAILY 03/15/20 03/15/20 metFORMIN [Glucophage] 1,000 mg PO BID 03/15/20 03/15/20 Insulin Glargine [Lantus Solostar] 10 unit SUBQ DAILY #2 pen 03/16/20 Mirtazapine [Remeron] 15 mg PO QPM #30 tablet 03/16/20 Ondansetron Odt [Zofran Odt] 4 mg TL Q6H PRN #10 tablet 03/16/20 - PHYSICAL EXAM AT DISCHARGE General Appearance: positive: No acute distress, Alert Eyes Bilateral: positive: Normal inspection, Conjunctivae nml ENT: positive: ENT inspection nml Neck: positive: Nml inspection Respiratory: positive: No respiratory distress. negative: Wheezes, Rales Cardiovascular: positive: Regular rate & rhythm. negative: Tachycardia, Systolic murmur Abdomen: positive: Non-tender, No distention. negative: Tenderness, Rebound Skin: positive: No rash, Warm, Dry Extremities: positive: Full ROM, No pedal edema Neurologic/Psychiatric: positive: Other (No focal deficits on exam.). negative: Disoriented to person, Disoriented to place Physical Exam Other/Comments: Vital Signs - 24 hr 03/15/20 03/15/20 03/16/20 21:00 23:35 04:40 Temperature 36.7 C 37.1 C 36.7 C Heart Rate [ Activity] Heart Rate [ 84 87 70 Brachial] Heart Rate [ Sitting] Heart Rate [ Supine] Respiratory 18 18 16 Rate Blood Pressure [Activity] Blood Pressure 107/60 102/54 L 110/64 [Right Brachial artery] Blood Pressure [Sitting] Blood Pressure [Supine] O2 Saturation 100 97 97 03/16/20 03/16/20 03/16/20 08:23 12:05 13:40 Temperature 36.6 C 36.5 C Heart Rate [ 89 Activity] Heart Rate [ 78 84 Brachial] Heart Rate [ 88 Sitting] Heart Rate [ 90 Supine] Respiratory 18 18 Rate Blood Pressure 146/72 H [Activity] Blood Pressure 132/57 H 112/60 [Right Brachial artery] Blood Pressure 128/76 [Sitting] Blood Pressure 91/54 L [Supine] O2 Saturation 98 99 03/16/20 15:31 Temperature 36.5 C Heart Rate [ Activity] Heart Rate [ 80 Brachial] Heart Rate [ Sitting] Heart Rate [ Supine] Respiratory 18 Rate Blood Pressure [Activity] Blood Pressure 110/63 [Right Brachial artery] Blood Pressure [Sitting] Blood Pressure [Supine] O2 Saturation 99 - LABS Result Diagrams: 03/16/20 05:00 03/16/20 05:00 - FOLLOW UP Follow Up: He was asked to follow-up with his primary care provider within 1 week and to continue home health services. - TIME SPENT Time Spent in Discharge (Minutes): 30"
[2020-03-16 15:32] VITALS: BP 110/63
== END 2020-03-16 15:35 | disposition home health service (06) ==
LOC: ED 12:34 → MS2 15:57
PROVIDERS: ADMIT Internal Medicine; ATTEND Internal Medicine
DX: N17.9 Acute kidney failure, unspecified (principal); E86.0 Dehydration; E43 Unspecified severe protein-calorie malnutrition; R62.7 Adult failure to thrive; Z68.1 Body mass index [BMI] 19.9 or less, adult; I12.9 Hypertensive chronic kidney disease with stage 1 through stage 4 chronic kidney disease, or unspecified chronic kidney disease; E11.22 Type 2 diabetes mellitus with diabetic chronic kidney disease; N18.9 Chronic kidney disease, unspecified; F03.90 Unspecified dementia, unspecified severity, without behavioral disturbance, psychotic disturbance, mood disturbance, and anxiety; Z90.49 Acquired absence of other specified parts of digestive tract; R26.89 Other abnormalities of gait and mobility; F32.9 Major depressive disorder, single episode, unspecified; E78.00 Pure hypercholesterolemia, unspecified; I25.10 Atherosclerotic heart disease of native coronary artery without angina pectoris; R32 Unspecified urinary incontinence; Z91.81 History of falling; Z87.891 Personal history of nicotine dependence; Z85.038 Personal history of other malignant neoplasm of large intestine; Z92.21 Personal history of antineoplastic chemotherapy; Z79.4 Long term (current) use of insulin; Z79.899 Other long term (current) drug therapy
CPT/HCPCS: 36415; 71045; 80048; 80053; 81003; 83036; 83690; 83735; 84100; 84443; 84484; 85025; 93005; 96361; 96372; 96374; 97161; 99285; A9270; G0378; J1815; J7120; 81001; 87086

== ENCOUNTER 2020-08-18 10:27 | Outpatient (CLI) | payer MEDICARE, MEDICAID ==
[2020-08-18 15:56] LABS: BASOPHILS % (AUTO) 0.5 %; EOSINOPHILS # (AUTO) 0.1 10^3/uL (0.0-0.7); HGB - HEMOGLOBIN 10.2 g/dL (14.0-18.0); LYMPHOCYTES # (AUTO) 1.4 10^3/uL (1.5-3.5); LYMPHOCYTES % (AUTO) 22.1 %; MEAN CORPUSCULAR HEMOGLOBIN 31.4 pg (27.0-31.0); MEAN CORPUSCULAR HGB CONC 30.7 g/dL (32.0-36.0); MEAN CORPUSCULAR VOLUME 102.2 fL (80.0-94.0); MEAN PLATELET VOLUME 9.8 fL (7.4-11.4); MONOCYTES # (AUTO) 0.7 10^3/uL (0.0-1.0); MONOCYTES % (AUTO) 11.3 %; NEUTROPHILS # (AUTO) 3.9 10^3/uL (1.5-6.6); NEUTROPHILS % (AUTO) 63.8 %; PLT - PLATELET COUNT 245 10^3/uL (130-450); RED BLOOD COUNT 3.25 10^6/uL (4.70-6.10); RED CELL DISTRIBUTION WIDTH 12.1 % (12.0-15.0); WHITE BLOOD COUNT 6.1 x10^3/uL (4.8-10.8)
[2020-08-18 16:03] LABS: ALBUMIN/GLOBULIN RATIO 1.1 (1.0-2.2); BILIRUBIN,TOTAL 0.5 mg/dL (0.2-1.0); CALCIUM 9.7 mg/dL (8.5-10.3); CREATININE 1.2 mg/dL (0.6-1.2); TOTAL PROTEIN 7.8 g/dL (6.7-8.2)
== END 2020-08-18 10:28 | disposition home or self-care (01) ==
LOC: LAB.S 10:27
PROVIDERS: ATTEND Internal Medicine
DX: I10 Essential (primary) hypertension (principal); E46 Unspecified protein-calorie malnutrition; D64.9 Anemia, unspecified; E78.5 Hyperlipidemia, unspecified; E11.9 Type 2 diabetes mellitus without complications; Z79.4 Long term (current) use of insulin
CPT/HCPCS: 36415; 80053; 84443; 85025

== ENCOUNTER 2020-11-08 14:27 | Outpatient (CLI) | payer MEDICARE, MEDICAID | END 2020-11-08 14:28 | disposition critical access hospital (66) | LOC: EMS 14:27 | PROVIDERS: ATTEND Emergency Medicine | DX: R53.1 Weakness (principal); R53.83 Other fatigue | CPT/HCPCS: A0425; A0429 ==

== ENCOUNTER 2020-11-08 14:58 | Inpatient (IN) | payer MEDICARE, MEDICAID ==
[2020-11-08] MEDS ORDERED: SODIUM CHLORIDE 0.9% 1,000 ML IV STA (15:05)
--- NOTE | 2020-11-08 15:08 | ED Physician Documentation ---
PD HPI ALTERED MENTAL STATUS - Stated complaint Stated Complaint: FAILURE TO THRIVE - History obtained from History obtained from: Patient, EMS - Additional information Additional information: This 80-year-old gentleman presents by ambulance from home. He has a history of colon cancer with incomplete treatment, chronic kidney disease and dementia. Reportedly was checked on once a day by family. He comes in because for the last 4 days he has been so weak that he has not gotten out of bed. He is a poor historian, not knowing recent events or date. He denies pain. He does follow commands. Most of the history is from EMS on arrival. There was talk of putting him in hospice but hospice evaluation has not yet been done. He was noted to be hypoxic into the 80s on room air for EMS. Review of Systems Unable to obtain: Confused PD PAST MEDICAL HISTORY - Past Medical History Cardiovascular: Hypertension, High cholesterol, Coronary artery disease, Other Respiratory: None Neuro: Dementia Endocrine/Autoimmune: Type 2 diabetes GI: Other (Colon cancer) : Incontinence, Renal insuffiency HEENT: Other Psych: Depression Musculoskeletal: None Derm: None - Past Surgical History Past Surgical History: Yes General: Gastric surgery, Colonoscopy HEENT: Cataracts - Present Medications Home Medications: Ambulatory Orders Medication Instructions Recorded Confirmed Donepezil HCl [Aricept] 10 mg PO QPM 03/15/20 03/15/20 Memantine [Namenda] 5 mg PO DAILY 03/15/20 03/15/20 metFORMIN [Glucophage] 1,000 mg PO BID 03/15/20 03/15/20 Insulin Glargine [Lantus Solostar] 10 unit SUBQ DAILY #2 pen 03/16/20 Mirtazapine [Remeron] 15 mg PO QPM #30 tablet 03/16/20 Ondansetron Odt [Zofran Odt] 4 mg TL Q6H PRN #10 tablet 03/16/20 - Allergies Allergies/Adverse Reactions: Allergies Allergy/AdvReac Type Severity Reaction Status Date / Time Penicillins Allergy Unknown Verified 11/08/20 15:10 - Social History Does the pt smoke?: Yes Smoking Status: Former smoker Does the pt drink ETOH?: No Does the pt have substance abuse?: No - Immunizations Immunizations are current?: Yes Immunizations: TDAP >10years/unknown - POLST Patient has POLST: No POLST Status: Full Code PD ED PE NORMAL - Vitals Vital signs reviewed: Yes - General General: Other (He is alert and oriented to person, knows he is in the hospital but not which 1. He can state what road he lives on. Does not know the date or year. He is thin and cachectic and covered in feces.) - HEENT HEENT: PERRL, EOMI - Neck Neck: Supple, no meningeal sign, No bony TTP - Cardiac Cardiac: RRR, No murmur - Respiratory Respiratory: No respiratory distress, Other (Rhonchorous breath sounds at the left upper lobe) - Abdomen Abdomen: Soft, Non tender - Back Back: No CVA TTP, No spinal TTP - Derm Derm: Normal color, Warm and dry - Extremities Extremities: Other (Trace bilateral pitting pedal edema just at the ankle.) - Neuro Neuro: No motor deficit, No sensory deficit Eye Opening: Spontaneous Motor: Obeys Commands Verbal: Confused GCS Score: 14 Results - Vitals Vitals: Vital Signs - 24 hr 11/08/20 11/08/20 11/08/20 15:05 15:35 16:16 Temperature 36.4 C L 36.1 C L Heart Rate 80 71 77 Respiratory 16 23 22 Rate Blood Pressure 138/72 H 140/74 H 129/67 O2 Saturation 94 94 90 L Oxygen O2 Source Room air - EKG (time done) 1610 Rate: Rate (enter#) Rhythm: NSR [place]: Normal Intervals: Normal [place] QRS: Normal Ischemia: Non specific changes Computer interpretation: Agree with computer - Labs Labs: Laboratory Tests 11/08/20 11/08/20 11/08/20 15:36 15:36 15:36 WBC 9.2 RBC 3.10 L Hgb 8.7 L Hct 28.4 L MCV 91.6 MCH 28.1 MCHC 30.6 L RDW 13.5 Plt Count 302 MPV 9.1 Neut # (Auto) 7.9 H Lymph # (Auto) 0.5 L [place] # (Auto) 0.7 Eos # (Auto) 0.2 Baso # (Auto) 0.0 Absolute Nucleated RBC 0.00 Nucleated RBC % 0.0 VBG pH VBG pCO2 VBG pO2 VBG HCO3 VBG Total CO2 VBG O2 Saturation VBG Base Excess Sodium 140 Potassium 3.5 Chloride 95 L Carbon Dioxide 28 Anion Gap 17.0 H BUN 41 H Creatinine 1.2 Estimated GFR (MDRD) 58 L Glucose 214 H Lactic Acid 2.1 Calcium 9.9 Magnesium 1.8 Total Bilirubin 0.2 AST 18 ALT < 10 L Alkaline Phosphatase 56 Troponin I High Sens B-Natriuretic Peptide Total Protein 7.3 Albumin 2.8 L Globulin 4.5 H Albumin/Globulin Ratio 0.6 L Ethyl Alcohol < 5.0 11/08/20 11/08/20 11/08/20 15:36 15:36 15:36 WBC RBC Hgb Hct MCV MCH MCHC RDW Plt Count MPV Neut # (Auto) Lymph # (Auto) [place] # (Auto) Eos # (Auto) Baso # (Auto) Absolute Nucleated RBC Nucleated RBC % VBG pH 7.516 H VBG pCO2 35.8 L VBG pO2 70.6 H VBG HCO3 28.3 H VBG Total CO2 29.4 H VBG O2 Saturation 95.5 H VBG Base Excess 5.2 H Sodium Potassium Chloride Carbon Dioxide Anion Gap BUN Creatinine Estimated GFR (MDRD) Glucose Lactic Acid Calcium Magnesium Total Bilirubin AST ALT Alkaline Phosphatase Troponin I High Sens 23.4 H* B-Natriuretic Peptide 819 H Total Protein Albumin Globulin Albumin/Globulin Ratio Ethyl Alcohol - Rads (name of study) 1v chest Radiology: EMP read contemporaneously (Mod B edema vs PNA) PD MEDICAL DECISION MAKING - ED course ED course: This 80-year-old gentleman sent by ambulance for shortness of breath, cough, and profound weakness. He is an unreliable historian due to dementia and I discussed the case after some additional diagnostics by phone with his granddaughter who is his visiting caregiver daily. She says he would be DNR/DNI if she and her mom can make the decision but the patient has always been wanted to be full code but I do not think he has capacity to make that decision at this juncture. Work-up demonstrates a combination of pneumonia and CHF and is treated with Rocephin, Zithromax, and Lasix. Dr. Gutierrez will admit. Departure - Departure Disposition: 66 [facility] DC/Xfer Clinical Impression: Adult failure to thrive Dementia Qualifiers: Dementia type: unspecified type Dementia behavioral disturbance: without behavioral disturbance Qualified Code(s): F03.90 - Unspecified dementia without behavioral disturbance Pneumonia Qualifiers: Pneumonia type: due to unspecified organism Laterality: unspecified laterality Lung location: unspecified part of lung Qualified Code(s): J18.9 - Pneumonia, unspecified organism Congestive heart failure Qualifiers: Heart failure type: unspecified Heart failure chronicity: acute Qualified Code(s): I50.9 - Heart failure, unspecified Condition: Stable
[2020-11-08 15:44] LABS: VBG BASE EXCESS 5.2 mmol/L (-2 - +2); VBG HCO3 28.3 mmol/L (23-28); VBG OXYGEN SATURATION 95.5 % (60-80); VBG PCO2 35.8 mmHg (41-51); VBG PH 7.516 (7.31-7.41); VBG PO2 70.6 mmHg (25-47); VBG TOTAL CO2 29.4 mmol/L (24-29)
[2020-11-08 15:45] LABS: BASOPHILS % (AUTO) 0.3 %; EOSINOPHILS # (AUTO) 0.2 10^3/uL (0.0-0.7); EOSINOPHILS % (AUTO) 1.6 %; HCT - HEMATOCRIT 28.4 % (42.0-52.0); HGB - HEMOGLOBIN 8.7 g/dL (14.0-18.0); LYMPHOCYTES # (AUTO) 0.5 10^3/uL (1.5-3.5); LYMPHOCYTES % (AUTO) 4.9 %; MEAN CORPUSCULAR HEMOGLOBIN 28.1 pg (27.0-31.0); MEAN CORPUSCULAR HGB CONC 30.6 g/dL (32.0-36.0); MEAN CORPUSCULAR VOLUME 91.6 fL (80.0-94.0); MEAN PLATELET VOLUME 9.1 fL (7.4-11.4); MONOCYTES # (AUTO) 0.7 10^3/uL (0.0-1.0); MONOCYTES % (AUTO) 7.2 %; NEUTROPHILS # (AUTO) 7.9 10^3/uL (1.5-6.6); NEUTROPHILS % (AUTO) 85.7 %; PLT - PLATELET COUNT 302 10^3/uL (130-450); RED CELL DISTRIBUTION WIDTH 13.5 % (12.0-15.0); WHITE BLOOD COUNT 9.2 x10^3/uL (4.8-10.8)
[2020-11-08 15:56] LABS: LACTIC ACID, VENOUS 2.1 mmol/L (0.5-2.2)
[2020-11-08 15:57] LABS: ALBUMIN 2.8 g/dL (3.2-5.5); ALBUMIN/GLOBULIN RATIO 0.6 (1.0-2.2); ALKALINE PHOSPHATASE 56 IU/L (42-121); ALT ALANINE AMINOTRANSFERASE < 10 IU/L (10-60); AST ASPARTATE AMINOTRANSFERASE 18 IU/L (10-42); BILIRUBIN,TOTAL 0.2 mg/dL (0.2-1.0); BUN - BLOOD UREA NITROGEN 41 mg/dL (6-20); CALCIUM 9.9 mg/dL (8.5-10.3); CARBON DIOXIDE - CO2 28 mmol/L (21-32); CHLORIDE 95 mmol/L (101-111); CREATININE 1.2 mg/dL (0.6-1.2); ETOH - ETHANOL < 5.0 mg/dL; GFR - MDRD 58 (>89); GLUCOSE 214 mg/dL (70-100); MAGNESIUM 1.8 mg/dL (1.7-2.8); POTASSIUM 3.5 mmol/L (3.5-5.0); SODIUM 140 mmol/L (135-145); TOTAL PROTEIN 7.3 g/dL (6.7-8.2)
--- NOTE | 2020-11-08 16:08 | XRAY Report ---
PROCEDURE: Chest 1 View X-Ray INDICATIONS: dyspnea TECHNIQUE: One view of the chest was acquired. COMPARISON: 03/15/2020 FINDINGS: Surgical changes and devices: None. Lungs and pleura: No pleural effusions or pneumothorax. Moderate patchy bilateral mid and lower lung airspace opacity. Mediastinum: Mediastinal contours appear normal. Heart size is enlarged. Bones and chest wall: No suspicious bony lesions. Overlying soft tissues appear unremarkable. IMPRESSION: Moderate bilateral edema versus pneumonia. Reviewed by: Ra Melgar MD on 11/08/2020 4:07 PM PDT Approved by: Ra Melgar MD on 11/08/2020 4:07 PM PDT Station ID: [id number]
[2020-11-08] MEDS ORDERED: FUROSEMIDE 40 MG/4 ML VIAL IVP STA (16:16)
[2020-11-08] MEDS ORDERED: cefTRIAXone 2 GM in SODIUM CHLORIDE 0.9% MINIBAG 100 ML IV STA (16:16)
[2020-11-08] MEDS ORDERED: AZITHROMYCIN INJ 500 MG in SODIUM CHLORIDE 0.9% 250 ML IV STA (16:16)
[2020-11-08] MEDS ORDERED: ONDANSETRON 4 MG/2 ML VIAL IVP PRN (16:57)
[2020-11-08] MEDS ORDERED: ACETAMINOPHEN 325 MG TABLET PO PRN (16:57)
--- NOTE | 2020-11-08 17:13 | HISTORY & PHYSICAL EXAMINATION ---
Chief Complaint - Chief Complaint Chief Complaint: AMS History of Present Illness - Admitted From Admitted From:: ER - History Obtained From Records Reviewed: [facility] History obtained from: pt's daughter at the bedside Exam Limitations: pt could not provider medical hx - History of Present Illness HPI Comment/Other: This is a 80-year-old gentleman with a past medical history significant of diabetes, dementia, colon cancer with incomplete treatment, chronic kidney disease. He is alert and he can followup commands but he is a poor historian, unknown hospital name, date and time. Pt is poor historian. pt's daughter is at the bedside.He was brought by EMS because he was found to have so weak that he has not gotten out of bed in the last 4 days. Pt is living alone but family was Reported to check pt once or twice per day. pt is living at [facility]. pt's daughter report he has no home medications. pt was checked by his PCP at 08/2019. pt has slight elevated glucose level but was not diagnosis of diabetes. she also report pt had significant cough once when pt swallowed food in the home. Patient denies chest pain. Patient is afebrile, normal range of blood pressure in ER but patient's oxygen saturation dropped quickly then patient needed oxygen support. Chest x-ray show moderate bilaterally edema plus pn eumonia. Routine laboratory tests that show BNP is over 800, Troponin is 23. Hemoglobin is 8.7, glucose is 214. Given above medical condition, medical team was consulted for admission. Discussed the care goal with the patient's daughter, patient's daughter confirm patient is DNR. History - Past Medical History Cardiovascular: reports: Hypertension, High cholesterol, Coronary artery disease, Other Respiratory: reports: None Neuro: reports: Dementia Endocrine/Autoimmune: reports: Type 2 diabetes GI: reports: Other (Colon cancer) : reports: Incontinence, Renal insuffiency HEENT: reports: Other Psych: reports: Depression Musculoskeletal: reports: None Derm: reports: None MRSA Hx?: No - Past Surgical History General: reports: Gastric surgery, Colonoscopy HEENT: reports: Cataracts - Family & Social History Family History: Mother: , Father: Family History Comment/Other: Reports mother from a stroke. She did have a history of breast cancer. He does not believe his parents had coronary artery disease. Does not recall any other family history. Social History Notes: He reports living alone at home. He did smoke from age of 16 to the age of 36 about a pack a day. He did drink alcohol although he denied daily use. He did quit about 1 year ago. Review of prior records show he was drinking about 6-9 beers a day and quit what would be about 2 to 3 years ago now. 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 - Substance History Use: Uses substance without health or social issues: NONE - POLST Patient has POLST: No POLST Status: Full Code Meds/Allgy - Home Medications Home Medications: Ambulatory Orders Medication Instructions Recorded Confirmed Donepezil HCl [Aricept] 10 mg PO QPM 03/15/20 03/15/20 Memantine [Namenda] 5 mg PO DAILY 03/15/20 03/15/20 metFORMIN [Glucophage] 1,000 mg PO BID 03/15/20 03/15/20 Insulin Glargine [Lantus Solostar] 10 unit SUBQ DAILY #2 pen 03/16/20 Mirtazapine [Remeron] 15 mg PO QPM #30 tablet 03/16/20 Ondansetron Odt [Zofran Odt] 4 mg TL Q6H PRN #10 tablet 03/16/20 - Allergies Allergies/Adverse Reactions: Allergies Allergy/AdvReac Type Severity Reaction Status Date / Time Penicillins Allergy Unknown Verified 11/08/20 15:10 Review of Systems - Constitutional Constitutional: reports: Weakness. denies: Fever, Chills, Poor appetite - Eyes Eyes: denies: Pain, Blurred vision, Field loss, Vision loss - Ears, Nose & Throat Ears, Nose & Throat: denies: Ear pain, Nosebleeds, Postnasal drainage, Bleeding gums - Cardiovascular Cariovascular: denies: Irregular heart rate, Chest pain, Lightheadedness, Syn cope, Exertional dyspnea, Decr. exercise tolerance - Respiratory Respiratory: reports: Cough. denies: Sputum production, Wheezing, Snoring, Hemoptysis, Orthopnea, SOB at rest - Gastrointestinal Gastrointestinal: denies: Abdominal pain, Diarrhea, Nausea, Vomiting - Genitourinary Genitourinary: denies: Dysuria, Urgency, Incontinence - Musculoskeletal Musculoskeletal: denies: Muscle pain, Limited range of motion - Integumentary Integumentary: denies: Rash, Lesions, Acne - Neurological Neurological: reports: General weakness. denies: Focal weakness, Headache, Nu mbness, Abnormal gait, Seizures, Incoordination - Psychiatric Psychiatric: denies: Suicidal, Delusions - Endocrine Endocrine: denies: Polyuria, Polyphagia - Hematologic/Lymphatic Hematologic/Lymphatic: denies: Petechiae, Blood clots Prior Level of Functionality: Patient is living alone, patient was rechecked by his family and help for patient ADLs Exam - Vital Signs Vital Signs: Vital Signs x48h Temp Pulse Resp BP Pulse Ox 11/08/20 16:48 36.3 C L 84 22 133/79 H 88 L 11/08/20 16:42 80 20 133/79 H 95 11/08/20 16:25 77 23 129/67 84 L 11/08/20 16:16 77 22 129/67 90 L 11/08/20 15:35 36.1 C L 71 23 140/74 H 94 11/08/20 15:05 36.4 C L 80 16 138/72 H 94 - Physical Exam General Appearance: positive: No acute distress, Alert. negative: Lethargic Eyes Bilateral: positive: Normal inspection, PERRL, No lid inflammation ENT: positive: ENT inspection nml, No signs of dehydration. negative: Purulent nasal drainage Neck: positive: Nml inspection, No JVD. negative: Thyromegaly, Tracheal devia tion Respiratory: positive: Chest non-tender, Rales. negative: Breath sounds nml Cardiovascular: positive: Regular rate & rhythm, No murmur. negative: Tachycardia, Bradycardia, Systolic murmur, Diastolic murmur Peripheral Pulses: positive: 2+ Abdomen: positive: Non-tender, Nml bowel sounds, No distention. negative: Tenderness, Guarding, Rebound Back: positive: Nml inspection Skin: positive: Color nml, Warm, Dry. negative: Cyanosis, Diaphoresis Extremities: positive: Non-tender. negative: Calf tenderness Neurologic/Psychiatric: positive: Sensation nml. negative: Weakness, Sensory loss, Facial droop, Slurred/abnml speech Sepsis Event Note (H) - Evaluation Current Stage of Sepsis: Sepsis Possible source of Sepsis: positive: Pulmonary - Sepsis Criteria Sepsis Criteria: Respiratory: Increasing oxygen requirements, Metabolic: lactate > 2 mmol/L Conclusion/Plan - Problem List (1) Respiratory failure with hypoxia Conclusion/Plan: Patient's oxygen saturation is dropped to 84% Mild tachypnea with cough. Chest x-ray show pulmonary edema and pneumonia. ER already started with azithromycin and Rocephin treated for pneumonia. We will continue antibiotics, continue supplemental oxygen as needed. (2) Pneumonia Conclusion/Plan: Patient chest x-ray show pneumonia, patient has cough, patient oxygen saturation was dropped. We will continue antibiotics to treat her pneumonia, continue supplemental oxygen as needed. Qualifiers: Pneumonia type: due to unspecified organism Laterality: unspecified laterality Lung location: unspecified part of lung Qualified Code(s): J18.9 - Pneumonia, unspecified organism (3) New onset a-fib Conclusion/Plan: EKG showed patient had a new onset atrial fibrillation With controlled heart pulsation. pt's CHadsvasc score is 3, start with eliquis. will check ECHO (4) Pulmonary edema Conclusion/Plan: Chest x-ray show bilaterally pulmonary edema, patient BNP is over 800, patient oxygen saturation was dropped to the 84% in room air. will check ECHO, start with Lasix, continue lab monitor (5) Anemia Conclusion/Plan: Patient had anemia, hemoglobin 8.7, We will check occult blood stool, We will have anemia study for pt. Qualifiers: Anemia type: unspecified type Qualified Code(s): D64.9 - Anemia, unspecified (6) Diabetes Conclusion/Plan: Glucose is 214, patient denies taking any home medication for diabetic. 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 We will continue supportive patient, Closely monitor patient Qualifiers: Dementia type: unspecified type Dementia behavioral disturbance: without behavioral disturbance Qualified Code(s): F03.90 - Unspecified dementia without behavioral disturbance (9) Generalized weakness Conclusion/Plan: Patient present generalized weakness, we will consult with physical therapist and occupational therapist - Lab Results Fish Bones: 11/09/20 04:07 11/09/20 04:07 Core Measures - Anticipated LOS I expect patient to be DC'd or transferred within 96 hours.: Yes - DVT/VTE - Prophylaxis VTE/DVT Device ordered at admit?: Yes VTE/DVT Prophylaxis med ordered at admit?: Yes
[2020-11-08 17:31] LABS: MUDS CUTOFF CONCENTRATIONS CUTOFF CONC BELOW:
[2020-11-08 17:33] LABS: BILIRUBIN,URINE NEGATIVE (NEGATIVE); GLUCOSE, URINE (UA) NEGATIVE (NEGATIVE); KETONES,URINE (UA) NEGATIVE (NEGATIVE); LEUKOCYTE ESTERASE, URINE NEGATIVE (NEGATIVE); NITRITE,URINE NEGATIVE (NEGATIVE); OCCULT BLOOD,URINE NEGATIVE (NEGATIVE); PROTEIN,URINE TRACE mg/dL (NEGATIVE); UROBILINOGEN,URINE 0.2 (NORMAL) E.U./dL (NORMAL)
[2020-11-08 17:40] LABS: CLARITY,URINE CLEAR (CLEAR)
[2020-11-08 17:42] LABS: AMPHETAMINE SCREEN,URINE NEGATIVE (NEGATIVE); BARBITURATE SCREEN,UR NEGATIVE (NEGATIVE); BENZODIAZEPINES SCREEN, URINE NEGATIVE (NEGATIVE); COCAINE SCREEN URINE NEGATIVE (NEGATIVE); METHADONE SCREEN, URINE NEGATIVE (NEGATIVE); METHAMPHETAMINES SCREEN, URINE NEGATIVE (NEGATIVE); OPIATE SCREEN, URINE NEGATIVE (NEGATIVE); OXYCODONE SCREEN, URINE NEGATIVE (NEGATIVE); PROPOXYPHENE SCREEN, URINE NEGATIVE (NEGATIVE); THC CANNABINOID SCREEN, URINE NEGATIVE (NEGATIVE); TRICYCLIC ANTIDEPRESSANT,URINE NEGATIVE (NEGATIVE)
[2020-11-08 17:47] LABS: AMORPHOUS SEDIMENT,UR Moderate /LPF; BACTERIA,URINE Rare /HPF (None Seen); CASTS, URINE 0-2 Hyaline Casts /LPF; MUCUS,URINE Few Strands; RBC,URINE 0-5 /HPF (0-5); SQUAMOUS EPITHELIAL CELL,UR FEW Squamous (<= Few); WBC,URINE 0-3 /HPF (0-3)
[2020-11-08 18:55] LABS: CORONAVIRUS 229E-RESP PCR NOT DETECTED; CORONAVIRUS HKU1-RESP PCR NOT DETECTED; CORONAVIRUS NL63-RESP PCR NOT DETECTED; CORONAVIRUS OC43-RESP PCR NOT DETECTED; HUMAN METAPNEUMOVIRUS NOT DETECTED; INFLUENZA A- RESP PCR PANEL NOT DETECTED; INFLUENZA B - RESP PCR PANEL NOT DETECTED; PARAINFLUENZA VIRUS 1 NOT DETECTED; PARAINFLUENZA VIRUS 2 NOT DETECTED; PARAINFLUENZA VIRUS 3 NOT DETECTED; RHINOVIRUS/ENTEROVIRUS NOT DETECTED; SARS-CoV-2 -RESP PCR PANEL NOT DETECTED
[2020-11-08 18:56] LABS: B. PARAPERTUSSIS- RESP PCR PAN NOT DETECTED; B. PERTUSSIS- RESP PCR PANEL NOT DETECTED; C. PNEUMONIAE- RESP PCR PANEL NOT DETECTED; M. PNEUMONIAE- RESP PCR PANEL NOT DETECTED; PARAINFLUENZA VIRUS 4 NOT DETECTED; RSV- RESP PCR PANEL NOT DETECTED
[2020-11-08 20:03] LABS: LACTIC ACID, VENOUS 4.3 mmol/L (0.5-2.2)
[2020-11-08 20:04] LABS: ESTIMATED AVERAGE GLUCOSE 140 mg/dL (70-100); HEMOGLOBIN A1c% 6.5 % (4.27-6.07)
[2020-11-08] MEDS ORDERED: LACTATED RINGERS 1,000 ML IV ONE (20:05)
[2020-11-08] MEDS: SODIUM CHLORIDE FLUSH 0.9% 10 ML SYRINGE IVP PRN (20:25)
[2020-11-08] MEDS ORDERED: INSULIN GLARGINE 300 UNIT/3 ML PEN SUBQ SCH (21:00)
[2020-11-08] MEDS: SODIUM CHLORIDE FLUSH 0.9% 10 ML SYRINGE IVP SCH (21:31)
[2020-11-08] MEDS: INSULIN ASPART 300 UNIT/3 ML PEN SUBQ SCH (21:31)
[2020-11-08] MEDS: FAMOTIDINE 20 MG TABLET PO SCH (21:31)
[2020-11-09] MEDS: SODIUM CHLORIDE FLUSH 0.9% 10 ML SYRINGE IVP SCH ×3 (01:32→17:44)
[2020-11-09 04:47] LABS: BASOPHILS % (AUTO) 0.1 %; EOSINOPHILS % (AUTO) 1.7 %; HCT - HEMATOCRIT 27.3 % (42.0-52.0); HGB - HEMOGLOBIN 8.2 g/dL (14.0-18.0); LYMPHOCYTES % (AUTO) 7.6 %; MEAN CORPUSCULAR HEMOGLOBIN 27.8 pg (27.0-31.0); MEAN CORPUSCULAR VOLUME 92.5 fL (80.0-94.0); MEAN PLATELET VOLUME 9.3 fL (7.4-11.4); MONOCYTES % (AUTO) 7.5 %; NEUTROPHILS % (AUTO) 82.7 %; PLT - PLATELET COUNT 262 10^3/uL (130-450); RED BLOOD COUNT 2.95 10^6/uL (4.70-6.10); RED CELL DISTRIBUTION WIDTH 13.6 % (12.0-15.0); WHITE BLOOD COUNT 9.7 x10^3/uL (4.8-10.8)
[2020-11-09 04:54] LABS: CALCIUM 8.9 mg/dL (8.5-10.3); CREATININE 1.2 mg/dL (0.6-1.2); POTASSIUM 3.3 mmol/L (3.5-5.0)
[2020-11-09 04:57] LABS: ABNORMAL LYMPHS % (MANUAL) 0 %
[2020-11-09 05:07] LABS: BAND NEUTROPHILS % (MANUAL) 7 %; DIFFERENTIAL COMMENT MANUAL DIFFERENTIAL; LYMPHOCYTES # (MANUAL) 0.4 10^3/uL (1.5-3.5); LYMPHOCYTES % (MANUAL) 4 %; MONOCYTES # (MANUAL) 0.5 10^3/uL (0.0-1.0); NEUTROPHILS # (MANUAL) 8.8 10^3/uL (1.5-6.6); PLATELET ESTIMATE, MANUAL NORMAL (130-450,000) (NORMAL); RBC MORPHOLOGY (MULTIPLE) 1+ HYPOCHROMASIA (NORMAL)
[2020-11-09] MEDS ORDERED: FUROSEMIDE 20 MG/2 ML VIAL IVP SCH (06:00)
[2020-11-09] MEDS ORDERED: POTASSIUM CHLORIDE 20 MEQ TABLET PO ONE (07:31)
[2020-11-09 07:57] LABS: ABSOLUTE RETICS # AUTO 0.029 10^6/uL (0.020-0.110); RED BLOOD COUNT 2.94 10^6/uL (4.70-6.10); RETICULOCYTE COUNT % (AUTO) 0.98 % (0.5-2.3)
[2020-11-09] MEDS ORDERED: INSULIN GLARGINE 300 UNIT/3 ML PEN SUBQ SCH (08:00)
[2020-11-09] MEDS: INSULIN ASPART 300 UNIT/3 ML PEN SUBQ SCH ×4 (08:08→22:03)
[2020-11-09 08:29] LABS: FERRITIN 340.9 ng/mL (23.9-336.2)
[2020-11-09] MEDS: FAMOTIDINE 20 MG TABLET PO SCH ×2 (08:49→22:03)
[2020-11-09] MEDS: FUROSEMIDE 20 MG/2 ML VIAL IVP SCH ×2 (08:50→13:35)
[2020-11-09] MEDS: cefTRIAXone 2 GM in SODIUM CHLORIDE 0.9% MINIBAG 100 ML IV SCH (08:53)
[2020-11-09] MEDS ORDERED: ENOXAPARIN 40 MG/0.4 ML SYRINGE SUBQ SCH (09:00)
[2020-11-09] MEDS: AZITHROMYCIN INJ 500 MG in SODIUM CHLORIDE 0.9% 250 ML IV SCH (09:37)
[2020-11-09 09:39] LABS: IRON < 6 ug/dL (45-182); TOTAL IRON BINDING CAPACITY 178 ug/dL (250-450); TRANSFERRIN 127 mg/dL (180-329)
[2020-11-09] MEDS ORDERED: MIN OIL/DIMETHICON/COCONUT OIL 92 GM TUBE TOP PRN (10:31)
[2020-11-09] MEDS ORDERED: FERROUS GLUCONATE 324 MG TABLET PO SCH (11:00)
[2020-11-09] MEDS: SODIUM CHLORIDE FLUSH 0.9% 10 ML SYRINGE IVP PRN (13:35)
[2020-11-09 14:01] LABS: FECAL OCCULT BLOOD (FIT) POSITIVE (NEGATIVE)
[2020-11-09] MEDS: SACCHAROMYCES BOULARDII 250 MG CAPSULE PO SCH (17:44)
--- NOTE | 2020-11-09 17:58 | PROVIDER PROGRESS NOTE ---
Assessment/Plan - Problem List (1) Respiratory failure with hypoxia Assessment/Plan: 11/09 significantly improved. pt has 95% on room air without Tachypnea or tachycardia, We will continue antibiotics and Lasix Patient's oxygen saturation is dropped to 84% Mild tachypnea with cough. Chest x-ray show pulmonary edema and pneumonia. ER already started with azithromycin and Rocephin treated for pneumonia. We will continue antibiotics, continue supplemental oxygen as needed. (2) Pneumonia Conclusion/Plan: 331, Improved, patient had 95% sats on room air. We will continue antibiotics, blood culture is negative for bacteremia Patient chest x-ray show pneumonia, patient has cough, patient oxygen saturation was dropped. We will continue antibiotics to treat her pneumonia, continue supplemental oxygen as needed. (3) Pulmonary edema Conclusion/Plan: 331, Improved, patient had 95% sats on room air. We will continue Lasix. Echo show unremarkable. BNP slightly elevated, We will continue intravenous Lasix, Continue supervisor laboratory Chest x-ray show bilaterally pulmonary edema, patient BNP is over 800, patient oxygen saturation was dropped to the 84% in room air. will check ECHO, start with Lasix, continue lab monitor (4) Anemia Conclusion/Plan: 331, patient had severe iron deficiency anemia, iron is ordered for patient, Also will check stool blood test Patient had anemia, hemoglobin 8.7, We will check occult blood stool, We will have anemia study for pt. (5) Diabetes Conclusion/Plan: 831, patient's A1c is 6.5, Continue sliding-scale Glucose is 214, patient denies taking any home medication for diabetic. Recheck patient A1c, start with sliding scale (6) CKD (chronic kidney disease) Conclusion/Plan: Creatinine is 1.2, patient has history of CKD, it is stable now, We will continu e have supervisor laboratory patient (7) Dementia Conclusion/Plan: Patient has history of dementia, No home medication For dementia. We will continue supportive patient, Closely monitor patient (8) Generalized weakness Conclusion/Plan: 331, physical therapist recommended patient DC to SNF, consult with social sciences department chair for safely disposition Patient present generalized weakness, we will consult with physical therapist an d occupational therapist (2) Pneumonia Qualifiers: Pneumonia type: due to unspecified organism Laterality: unspecified laterality Lung location: unspecified part of lung Qualified Code(s): J18.9 - Pneumonia, unspecified organism (5) Anemia Qualifiers: Anemia type: unspecified type Qualified Code(s): D64.9 - Anemia, unspecified (8) Dementia Qualifiers: Dementia type: unspecified type Dementia behavioral disturbance: without behavioral disturbance Qualified Code(s): F03.90 - Unspecified dementia without behavioral disturbance - Current Meds Current Meds: Current Medications Generic Name Dose Route Start Last Admin Trade Name Freq PRN Reason Stop Dose Admin Famotidine 20 mg 11/08/20 21:00 11/09/20 08:49 Famotidine 20 Mg Tablet PO 20 mg BID ANNA Administration Ferrous Gluconate 324 mg 11/09/20 11:00 11/09/20 13:35 Ferrous Gluconate 324 Mg Tablet PO 324 mg DAILYWM ANNA Administration Furosemide 20 mg 11/09/20 09:00 11/09/20 13:35 Furosemide 20 Mg/2 Ml Vial IVP 20 mg BIDDIURETIC ANNA Administration Azithromycin 500 mg/ Sodium 250 mls @ 250 mls/hr 11/09/20 09:00 11/09/20 10:40 Chloride IV 11/11/20 09:59 Infused DAILY ANNA Infusion Ceftriaxone Sodium 2 gm/ 100 mls @ 200 mls/hr 11/09/20 09:00 11/09/20 09:30 Sodium Chloride IV 11/13/20 08:59 Infused DAILY ANNA Infusion Insulin Aspart 1 - 9 unit 11/08/20 21:00 11/09/20 17:05 Insulin Aspart 300 Unit/3 Ml Pen SUBQ Not Given 0800,1200,1700,2100 [facility] Protocol Insulin Glargine 10 unit 11/09/20 08:00 11/09/20 08:49 Insulin Glargine 300 Unit/3 Ml Pen SUBQ 10 unit QDBREAKFAST ANNA Administration Mineral Oil 1 applic 11/09/20 10:31 11/09/20 13:42 Min Oil/Dimethicon/Coconut Oil 92 Gm Tube TOP 1 applic PRN PRN Administration Skin Care Saccharomyces Boulardii 250 mg 11/09/20 17:00 11/09/20 17:44 Saccharomyces Boulardii 250 Mg Capsule PO 250 mg BIDWM ANAN Administration Sodium Chloride 10 ml 11/08/20 16:57 11/09/20 13:35 Sodium Chloride Flush 0.9% 10 Ml Syringe IVP 10 ml PRN PRN Administration NEEDED PER PROVIDER ORDERS Sodium Chloride 10 ml 11/08/20 17:00 11/09/20 17:44 Sodium Chloride Flush 0.9% 10 Ml Syringe IVP 10 ml 0100,0900,1700 [facility] Administration - Lab Result Fish Bone Diagrams: 11/10/20 04:12 11/10/20 04:12 - Additional Planning My Orders: My Active Orders 11/08/20 16:59 IV Insert [RC] .ONCE SCDs [RC] QSHIFT 11/08/20 17:00 Social Work Consult [CONS] Routine Sodium Chloride Flush 0.9% [Normal Saline Flush 0.9%] 10 ml IVP 0100,0900,1700 11/08/20 17:04 Blood Glucose Checks - Eating [RC] 0800,1200,1700,2100 Initiate Hypoglycemia Protocol [RC] .protocol 11/08/20 18:43 Code Status [OTHERS] Routine 11/08/20 21:00 Famotidine [Pepcid] 20 mg PO BID Insulin Aspart [NovoLOG] 1 - 9 unit SUBQ 0800,1200,1700,2100 11/09/20 08:00 Insulin Glargine [Lantus Solostar] 10 unit SUBQ QDBREAKFAST 11/09/20 09:00 Azithromycin Inj [Zithromax Inj] 500 mg Sodium Chloride 0.9% [Normal Saline 0.9%] 250 ml IV DAILY FUROSEMIDE INJ 20mg VIAL [LASIX INJ 20mg VIAL] 20 mg IVP BIDDIURETIC cefTRIAXone [Rocephin] 2 gm Sodium Chloride 0.9% Minibag [Normal Saline 0.9% Minibag] 100 ml IV DAILY 11/09/20 10:31 Min Oil/Dimeth/Coconut Oil Crm [Cavilon] 1 applic TOP PRN PRN 11/09/20 11:00 Ferrous Gluconate [Fergon] 324 mg PO DAILYWM 11/09/20 16:56 Echo Transthoracic Complete [ECHO] Stat 11/09/20 17:00 Saccharomyces Boulardii [Florastor] 250 mg PO BIDWM 11/09/20 21:00 Apixaban [Eliquis] 5 mg PO BID 11/10/20 05:00 BMP - BASIC METABOLIC PANEL [CHEM] DAILYLAB BNP - B-NATRIURETIC PEPTIDE [IAI] DAILYLAB CBC - COMP BLD CT W/AUTO DIFF [HEME] DAILYLAB CRP - C-REACTIVE PROTEIN [CHEM] DAILYLAB 11/11/20 05:00 BMP - BASIC METABOLIC PANEL [CHEM] DAILYLAB BNP - B-NATRIURETIC PEPTIDE [IAI] DAILYLAB CBC - COMP BLD CT W/AUTO DIFF [HEME] DAILYLAB CRP - C-REACTIVE PROTEIN [CHEM] DAILYLAB 11/12/20 05:00 BMP - BASIC METABOLIC PANEL [CHEM] DAILYLAB BNP - B-NATRIURETIC PEPTIDE [IAI] DAILYLAB CBC - COMP BLD CT W/AUTO DIFF [HEME] DAILYLAB CRP - C-REACTIVE PROTEIN [CHEM] DAILYLAB 11/13/20 05:00 BMP - BASIC METABOLIC PANEL [CHEM] DAILYLAB BNP - B-NATRIURETIC PEPTIDE [IAI] DAILYLAB CBC - COMP BLD CT W/AUTO DIFF [HEME] DAILYLAB CRP - C-REACTIVE PROTEIN [CHEM] DAILYLAB 11/14/20 05:00 CRP - C-REACTIVE PROTEIN [CHEM] DAILYLAB Subjective - Subjective Patient Reports: Feeling Better Objective Vital Signs: Vital Signs - 24 hr 11/08/20 11/09/20 11/09/20 19:55 00:00 07:45 Temperature 37.9 C 36.7 C 36.5 C Heart Rate [ Activity] Heart Rate [ 92 80 70 Brachial] Heart Rate [ Sitting] Heart Rate [ Supine] Respiratory 18 18 18 Rate Blood Pressure [Activity] Blood Pressure 106/55 L 94/56 L 114/72 [Right Brachial artery] Blood Pressure [Sitting] Blood Pressure [Supine] O2 Saturation 96 96 100 O2 Saturation [ Supine] 11/09/20 11/09/20 11/09/20 08:19 10:04 10:42 Temperature Heart Rate [ 82 Activity] Heart Rate [ Brachial] Heart Rate [ 80 Sitting] Heart Rate [ 77 Supine] Respiratory Rate Blood Pressure 113/52 L [Activity] Blood Pressure [Right Brachial artery] Blood Pressure 112/61 [Sitting] Blood Pressure 116/66 [Supine] O2 Saturation 96 95 O2 Saturation [ 97 Supine] 11/09/20 13:00 Temperature 36.4 C L Heart Rate [ Activity] Heart Rate [ 74 Brachial] Heart Rate [ Sitting] Heart Rate [ Supine] Respiratory 12 Rate Blood Pressure [Activity] Blood Pressure 112/64 [Right Brachial artery] Blood Pressure [Sitting] Blood Pressure [Supine] O2 Saturation 96 O2 Saturation [ Supine] Oxygen O2 Source Room air I&O (Last 24 Hrs): Intake and Output Totals x24h 11/07/20 11/08/20 11/09/20 23:59 23:59 23:59 Intake Total 2550 1430 Balance 2550 1430 General: Alert, Cooperative, No acute distress HEENT: Atraumatic Neck: Supple Lymphatic: no adenopathy Neuro: Alert, Non Focal Cardiovascular: Regular rate, Normal S1, Normal S2 Respiratory: Chest non-tender, No respiratory distress Abdomen: Normal bowel sounds, Soft Extremities: Normal pulses - Results Results: Laboratory Results WBC 9.7 x10^3/uL (4.8-10.8) 11/09/20 04:07 RBC 2.94 10^6/uL (4.70-6.10) L 11/09/20 04:07 RBC 2.95 10^6/uL (4.70-6.10) L 11/09/20 04:07 Hgb 8.2 g/dL (14.0-18.0) L 11/09/20 04:07 Hct 27.3 % (42.0-52.0) L 11/09/20 04:07 MCV 92.5 fL (80.0-94.0) 11/09/20 04:07 MCH 27.8 pg (27.0-31.0) 11/09/20 04:07 MCHC 30.0 g/dL (32.0-36.0) L 11/09/20 04:07 RDW 13.6 % (12.0-15.0) 11/09/20 04:07 Plt Count 262 10^3/uL (130-450) 11/09/20 04:07 MPV 9.3 fL (7.4-11.4) 11/09/20 04:07 Reticulocyte % (Auto) 0.98 % (0.5-2.3) 11/09/20 04:07 Neut # (Auto) Not Reportable 11/09/20 04:07 Lymph # (Auto) Not Reportable 11/09/20 04:07 Atkinson # (Auto) Not Reportable 11/09/20 04:07 Eos # (Auto) Not Reportable 11/09/20 04:07 Baso # (Auto) Not Reportable 11/09/20 04:07 Absolute Nucleated RBC Not Reportable 11/09/20 04:07 Total Counted 100 11/09/20 04:07 Band Neuts % (Manual) 7 % (0-10) 11/09/20 04:07 Abnorm Lymph % (Manual) 0 % 11/09/20 04:07 Nucleated RBC % Not Reportable 11/09/20 04:07 Neutrophils # (Manual) 8.8 10^3/uL (1.5-6.6) H 11/09/20 04:07 Lymphocytes # (Manual) 0.4 10^3/uL (1.5-3.5) L 11/09/20 04:07 Monocytes # (Manual) 0.5 10^3/uL (0.0-1.0) 11/09/20 04:07 Eosinophils # (Manual) 0.0 10^3/uL (0-0.7) 11/09/20 04:07 Basophils # (Manual) 0.0 10^3/uL (0-0.1) 11/09/20 04:07 Differential Comment MANUAL DIFFERENTIAL 11/09/20 04:07 Platelet Estimate NORMAL (130-450,000) (NORMAL) 11/09/20 04:07 RBC Morph Micro Appear 1+ HYPOCHROMASIA (NORMAL) 11/09/20 04:07 Absolute Retic 0.029 10^6/uL (0.020-0.110) 11/09/20 04:07 VBG pH 7.516 (7.31-7.41) H 11/08/20 15:36 VBG pCO2 35.8 mmHg (41-51) L 11/08/20 15:36 VBG pO2 70.6 mmHg (25-47) H 11/08/20 15:36 VBG HCO3 28.3 mmol/L (23-28) H 11/08/20 15:36 VBG Total CO2 29.4 mmol/L (24-29) H 11/08/20 15:36 VBG O2 Saturation 95.5 % (60-80) H 11/08/20 15:36 VBG Base Excess 5.2 mmol/L (-2 - +2) H 11/08/20 15:36 Sodium 141 mmol/L (135-145) 11/09/20 04:07 Potassium 3.3 mmol/L (3.5-5.0) L 11/09/20 04:07 Chloride 98 mmol/L (101-111) L 11/09/20 04:07 Carbon Dioxide 33 mmol/L (21-32) H 11/09/20 04:07 Anion Gap 10.0 (6-13) 11/09/20 04:07 BUN 41 mg/dL (6-20) H 11/09/20 04:07 Creatinine 1.2 mg/dL (0.6-1.2) 11/09/20 04:07 Estimated GFR (MDRD) 58 (>89) L 11/09/20 04:07 Glucose 152 mg/dL (70-100) H 11/09/20 04:07 Estimat Average Glucose 140 mg/dL (70-100) H 11/08/20 19:12 Hemoglobin A1c % 6.5 % (4.27-6.07) H 11/08/20 19:12 Lactic Acid 1.9 mmol/L (0.5-2.2) 11/08/20 21:51 Calcium 8.9 mg/dL (8.5-10.3) 11/09/20 04:07 Magnesium 1.8 mg/dL (1.7-2.8) 11/08/20 15:36 Iron < 6 ug/dL (45-182) L 11/09/20 04:07 TIBC 178 ug/dL (250-450) L 11/09/20 04:07 Transferrin 127 mg/dL (180-329) L 11/09/20 04:07 Ferritin 340.9 ng/mL (23.9-336.2) H 11/09/20 04:07 Total Bilirubin 0.2 mg/dL (0.2-1.0) 11/08/20 15:36 AST 18 IU/L (10-42) 11/08/20 15:36 ALT < 10 IU/L (10-60) L 11/08/20 15:36 Alkaline Phosphatase 56 IU/L (42-121) 11/08/20 15:36 Lactate Dehydrogenase 157 IU/L (91-225) 11/09/20 04:07 Troponin I High Sens 34.9 ng/L (2.3-19.7) H* 11/08/20 21:51 C-Reactive Protein 22.4 mg/dL (0-1.0) H 11/09/20 04:07 B-Natriuretic Peptide 931 pg/mL (5-100) H 11/09/20 04:07 Total Protein 7.3 g/dL (6.7-8.2) 11/08/20 15:36 Albumin 2.8 g/dL (3.2-5.5) L 11/08/20 15:36 Globulin 4.5 g/dL (2.1-4.2) H 11/08/20 15:36 Albumin/Globulin Ratio 0.6 (1.0-2.2) L 11/08/20 15:36 Vitamin B12 433 pg/mL (180-914) 11/09/20 04:07 Urine Color YELLOW 11/08/20 17:25 Urine Clarity CLEAR (CLEAR) 11/08/20 17:25 Urine pH 5.0 PH (5.0-7.5) 11/08/20 17:25 Ur Specific [place] 1.025 (1.002-1.030) 11/08/20 17:25 Urine Protein TRACE mg/dL (NEGATIVE) 11/08/20 17:25 Urine Glucose (UA) NEGATIVE mg/dL (NEGATIVE) 11/08/20 17:25 Urine Ketones NEGATIVE mg/dL (NEGATIVE) 11/08/20 17:25 Urine Occult Blood NEGATIVE (NEGATIVE) 11/08/20 17:25 Urine Nitrite NEGATIVE (NEGATIVE) 11/08/20 17:25 Urine Bilirubin NEGATIVE (NEGATIVE) 11/08/20 17:25 Urine Urobilinogen 0.2 (NORMAL) E.U./dL (NORMAL) 11/08/20 17:25 Ur Leukocyte Esterase NEGATIVE (NEGATIVE) 11/08/20 17:25 Urine RBC 0-5 /HPF (0-5) 11/08/20 17:25 Urine WBC 0-3 /HPF (0-3) 11/08/20 17:25 Ur Squamous Epith Cells FEW Squamous (<= Few) 11/08/20 17:25 Amorphous Sediment Moderate /LPF 11/08/20 17:25 Urine Bacteria Rare /HPF (None Seen) 11/08/20 17:25 Urine Casts 0-2 Hyaline Casts /LPF 11/08/20 17:25 Urine Mucus Few Strands 11/08/20 17:25 Urine Culture Comments NOT INDICATED 11/08/20 17:25 Nasal Adenovirus (PCR) NOT DETECTED 11/08/20 16:57 Nasal B. parapertussis DNA (PCR) NOT DETECTED 11/08/20 16:57 Nasal Coronavir 229E PCR NOT DETECTED 11/08/20 16:57 Nasal Coronavir HKU1 PCR NOT DETECTED 11/08/20 16:57 Nasal Coronavir NL63 PCR NOT DETECTED 11/08/20 16:57 Nasal Coronavir OC43 PCR NOT DETECTED 11/08/20 16:57 Nasal Enterovir/Rhinovir PCR NOT DETECTED 11/08/20 16:57 Nasal Influenza B PCR NOT DETECTED 11/08/20 16:57 Nasal Influenza A PCR NOT DETECTED 11/08/20 16:57 Nasal Parainfluen 1 PCR NOT DETECTED 11/08/20 16:57 Nasal Parainfluen 2 PCR NOT DETECTED 11/08/20 16:57 Nasal Parainfluen 3 PCR NOT DETECTED 11/08/20 16:57 Nasal Parainfluen 4 PCR NOT DETECTED 11/08/20 16:57 Nasal RSV (PCR) NOT DETECTED 11/08/20 16:57 Nasal B.pertussis DNA PCR NOT DETECTED 11/08/20 16:57 Nasal C.pneumoniae (PCR) NOT DETECTED 11/08/20 16:57 Kalyan Human Metapneumo PCR NOT DETECTED 11/08/20 16:57 Nasal M.pneumoniae (PCR) NOT DETECTED 11/08/20 16:57 Nasal SARS-CoV-2 (PCR) NOT DETECTED 11/08/20 16:57 Stl Occult Blood (IFOB) POSITIVE (NEGATIVE) A 11/08/20 13:20 Urine Opiates Screen NEGATIVE (NEGATIVE) 11/08/20 17:25 Ur Oxycodone Screen NEGATIVE (NEGATIVE) 11/08/20 17:25 Urine Methadone Screen NEGATIVE (NEGATIVE) 11/08/20 17:25 Ur Propoxyphene Screen NEGATIVE (NEGATIVE) 11/08/20 17:25 Ur Barbiturates Screen NEGATIVE (NEGATIVE) 11/08/20 17:25 Ur Tricyclics Screen NEGATIVE (NEGATIVE) 11/08/20 17:25 Ur Phencyclidine Scrn NEGATIVE (NEGATIVE) 11/08/20 17:25 Ur Amphetamine Screen NEGATIVE (NEGATIVE) 11/08/20 17:25 U Methamphetamines Scrn NEGATIVE (NEGATIVE) 11/08/20 17:25 U Benzodiazepines Scrn NEGATIVE (NEGATIVE) 11/08/20 17:25 Urine Cocaine Screen NEGATIVE (NEGATIVE) 11/08/20 17:25 U Cannabinoids Screen NEGATIVE (NEGATIVE) 11/08/20 17:25 Ethyl Alcohol < 5.0 mg/dL 11/08/20 15:36 - Procedures Procedures: Procedures EXCISION OF ASCENDING COLON, ENDO, DIAGN (04/17/18) EXCISION OF ASCENDING COLON, PERC ENDO APPROACH (05/13/18) EXCISION OF DESCENDING COLON, ENDO (04/17/18) EXCISION OF DUODENUM, ENDO, DIAGN (04/17/18) EXCISION OF RECTUM, ENDO (04/17/18) EXCISION OF SIGMOID COLON, ENDO (04/17/18) INSERT VAD RESERVOIR IN CHEST SUBCU/FASCIA, PERC (07/14/18) INSERTION OF INFUSION DEV INTO L SUBCLAV VEIN, PERC APPROACH (07/14/18) INSPECTION OF LOWER INTESTINAL TRACT, ENDO (08/25/19) Sepsis Event Note (H) - Evaluation Current Stage of Sepsis: Sepsis Possible source of Sepsis: positive: Pulmonary - Sepsis Criteria Sepsis Criteria: Respiratory: Increasing oxygen requirements, Metabolic: lactate > 2 mmol/L ABX Reporting Has patient been on IV antibiotics over the past 48 hours?: Yes Current Medications - Current Medications Current Medications: Active Medications Acetaminophen (Acetaminophen 325 Mg Tablet) 650 mg PO Q4HR PRN PRN Reason: Pain 1 to 4 Ferrous Gluconate (Ferrous Gluconate 324 Mg Tablet) 324 mg PO BID [facility] Last Admin: 11/10/20 08:16 Dose: 324 mg Documented by: Furosemide (Furosemide 20 Mg/2 Ml Vial) 20 mg IVP BIDDIURETIC [facility] Last Admin: 11/10/20 06:41 Dose: Not Given Documented by: Azithromycin 500 mg/ Sodium (Chloride) 250 mls @ 250 mls/hr IV DAILY ANNA Stop: 11/11/20 09:59 Last Admin: 11/10/20 09:19 Dose: 250 mls/hr Documented by: Ceftriaxone Sodium 2 gm/ (Sodium Chloride) 100 mls @ 200 mls/hr IV DAILY [facility] Stop: 11/13/20 08:59 Last Infusion: 11/10/20 09:18 Dose: Infused Documented by: Potassium Chloride (Potassium Chloride) 10 meq in 100 mls @ 100 mls/hr IV Q1H [facility] Stop: 11/10/20 11:59 Last Admin: 11/10/20 10:43 Dose: 100 mls/hr Documented by: Insulin Aspart (Insulin Aspart 300 Unit/3 Ml Pen) 1 - 9 unit SUBQ 0800,1200,1700,2100 [facility]; Protocol Last Admin: 11/10/20 08:07 Dose: Not Given Documented by: Mineral Oil (Min Oil/Dimethicon/Coconut Oil 92 Gm Tube) 1 applic TOP PRN PRN PRN Reason: Skin Care Last Admin: 11/09/20 13:42 Dose: 1 applic Documented by: Ondansetron HCl (Ondansetron 4 Mg/2 Ml Vial) 4 mg IVP Q6HR PRN PRN Reason: Nausea / Vomiting Pantoprazole Sodium (Pantoprazole 40 Mg Vial) 40 mg IVP QDAC [facility] Last Admin: 11/10/20 08:17 Dose: 40 mg Documented by: Saccharomyces Boulardii (Saccharomyces Boulardii 250 Mg Capsule) 250 mg PO BIDWM [facility] Last Admin: 11/10/20 08:16 Dose: 250 mg Documented by: Sodium Chloride (Sodium Chloride Flush 0.9% 10 Ml Syringe) 10 ml IVP PRN PRN PRN Reason: NEEDED PER PROVIDER ORDERS Last Admin: 11/10/20 08:18 Dose: 10 ml Documented by: Sodium Chloride (Sodium Chloride Flush 0.9% 10 Ml Syringe) 10 ml IVP 0100,0900,1700 [facility] Last Admin: 11/10/20 08:17 Dose: 10 ml Documented by: Donepezil HCl [Aricept] 10 mg PO QPM 03/15/20 Memantine [Namenda] 5 mg PO DAILY 03/15/20 metFORMIN [Glucophage] 1,000 mg PO BID 03/15/20
[2020-11-09] MEDS ORDERED: APIXABAN 5 MG TABLET PO SCH (21:00)
[2020-11-10] MEDS: SODIUM CHLORIDE FLUSH 0.9% 10 ML SYRINGE IVP SCH ×4 (00:57→23:39)
[2020-11-10 04:38] LABS: BASOPHILS % (AUTO) 0.4 %; EOSINOPHILS # (AUTO) 0.1 10^3/uL (0.0-0.7); EOSINOPHILS % (AUTO) 0.8 %; HCT - HEMATOCRIT 28.7 % (42.0-52.0); HGB - HEMOGLOBIN 8.7 g/dL (14.0-18.0); LYMPHOCYTES # (AUTO) 0.7 10^3/uL (1.5-3.5); LYMPHOCYTES % (AUTO) 8.9 %; MEAN CORPUSCULAR HEMOGLOBIN 28.2 pg (27.0-31.0); MEAN CORPUSCULAR HGB CONC 30.3 g/dL (32.0-36.0); MEAN CORPUSCULAR VOLUME 92.9 fL (80.0-94.0); MEAN PLATELET VOLUME 9.2 fL (7.4-11.4); MONOCYTES # (AUTO) 0.6 10^3/uL (0.0-1.0); MONOCYTES % (AUTO) 7.5 %; NEUTROPHILS # (AUTO) 6.3 10^3/uL (1.5-6.6); NEUTROPHILS % (AUTO) 82.1 %; PLT - PLATELET COUNT 290 10^3/uL (130-450); RED BLOOD COUNT 3.09 10^6/uL (4.70-6.10); RED CELL DISTRIBUTION WIDTH 13.4 % (12.0-15.0); WHITE BLOOD COUNT 7.7 x10^3/uL (4.8-10.8)
[2020-11-10 05:14] LABS: CALCIUM 8.5 mg/dL (8.5-10.3); CREATININE 1.2 mg/dL (0.6-1.2); CRP - C-REACTIVE PROTEIN 19.6 mg/dL (0-1.0); POTASSIUM 2.8 mmol/L (3.5-5.0)
[2020-11-10] MEDS: FUROSEMIDE 20 MG/2 ML VIAL IVP SCH ×2 (06:41→13:44)
[2020-11-10] MEDS ORDERED: POTASSIUM CHLORIDE 20 MEQ TABLET PO ONE ×3 (07:18→13:54)
[2020-11-10] MEDS: INSULIN ASPART 300 UNIT/3 ML PEN SUBQ SCH ×4 (08:07→20:55)
[2020-11-10] MEDS: SACCHAROMYCES BOULARDII 250 MG CAPSULE PO SCH ×2 (08:16→17:03)
[2020-11-10] MEDS: FERROUS GLUCONATE 324 MG TABLET PO SCH ×2 (08:16→20:55)
[2020-11-10] MEDS: PANTOPRAZOLE 40 MG VIAL IVP SCH (08:17)
[2020-11-10] MEDS: SODIUM CHLORIDE FLUSH 0.9% 10 ML SYRINGE IVP PRN ×2 (08:18→13:44)
[2020-11-10] MEDS: cefTRIAXone 2 GM in SODIUM CHLORIDE 0.9% MINIBAG 100 ML IV SCH (08:21)
[2020-11-10] MEDS ORDERED: SODIUM CHLORIDE 0.9% 500 ML IV ONE (08:46)
[2020-11-10] MEDS ORDERED: ENOXAPARIN 40 MG/0.4 ML SYRINGE SUBQ SCH (09:00)
[2020-11-10] MEDS: AZITHROMYCIN INJ 500 MG in SODIUM CHLORIDE 0.9% 250 ML IV SCH (09:19)
[2020-11-10] MEDS: POTASSIUM CHLOR 10 MEQ/100 ML 10 MEQ/100 ML BAG IV SCH ×3 (10:43→14:42)
--- NOTE | 2020-11-10 12:40 | PHARMACY PROGRESS NOTE ---
- Best Possible Medication History Admit Date and Time: 11/08/20 8997 Processed by: Pharmacy Patient Interview: Completed (PATIENT WAS UNABLE TO CONFIRM HOME MEDICATIONS. PATIENT'S DAUGHTER WAS CALLED, PER PATIENT'S DAUGHTER PATIENT WAS TAKEN OFF HOME MEDICATIONS OF AUG 12. SHE REPORTS PCP WILL SEE HIM IN DECEMBER TO FOLLOW-UP) Secondary Source(s): Physician records, Pharmacy records, Insurance records As the person ultimately responsible for medication therapy, providers are able to order a medication from an existing home medication list in [facility] via the "Reconcile Routine" prior to Confirmation of that medication by ground support equipment mechanic. Such practice is discouraged except when the physician, in their clinical judgment, deems that a medical need exists for a medication without regard to previous use.
[2020-11-10 13:01] LABS: HCT - HEMATOCRIT 33.6 % (42.0-52.0)
--- NOTE | 2020-11-10 16:42 | PROVIDER PROGRESS NOTE ---
Assessment/Plan - Problem List (1) Respiratory failure with hypoxia Assessment/Plan: 4 stable pt had 95% sats on room air 11/09 significantly improved. pt has 95% on room air without Tachypnea or tachyca rdia, We will continue antibiotics and Lasix Patient's oxygen saturation is dropped to 84% Mild tachypnea with cough. Chest x-ray show pulmonary edema and pneumonia. ER already started with azithromycin and Rocephin treated for pneumonia. We will continue antibiotics, continue supplemental oxygen as needed. (2) Pneumonia Conclusion/Plan: 331, Improved, patient had 95% sats on room air. We will continue antibiotics, blood culture is negative for bacteremia Patient chest x-ray show pneumonia, patient has cough, patient oxygen saturation was dropped. We will continue antibiotics to treat her pneumonia, continue supplemental oxygen as needed. 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 We will continue Lasix. Echo show unremarkable. BNP slightly elevated, We will continue intravenous Lasix, Continue laboratory animal caretaker Chest x-ray show bilaterally pulmonary edema, patient BNP is over 800, patient oxygen saturation was dropped to the 84% in room air. will check ECHO, start with Lasix, continue lab monitor (4) Anemia/occult stool positive Conclusion/Plan: 11/10 Improved significant, hemoglobin is 10 today from 8.7 on yesterday. Patient has no more GI bleed, normal stool brown color. Patient may follow-up outpatient to have endoscopy. Hold blood thinner in the hospital now. 331, patient had severe iron deficiency anemia, iron is ordered for patient, Also will check stool blood test Patient had anemia, hemoglobin 8.7, We will check occult blood stool, We will have anemia study for pt. (5) Diabetes Conclusion/Plan: 11/10 Patient had a low glucose 59 in the morning. Hold Lantus in the night, continue sliding scale on daytime, start with Metformin for d/c 331, patient's A1c is 6.5, Continue sliding-scale Glucose is 214, patient denies taking any home medication for diabetic. Recheck patient A1c, start with sliding scale (6) CKD (chronic kidney disease) Conclusion/Plan: Creatinine is 1.2, patient has history of CKD, it is stable now, We will continue have laboratory animal caretaker patient (7) Dementia Conclusion/Plan: Patient has history of dementia, No home medication For dementia. We will continue supportive patient, Closely monitor patient (8) Generalized weakness Conclusion/Plan: 331, physical therapist recommended patient DC to SNF, consult with social contact worker for safely disposition Patient present generalized weakness, we will consult with physical therapist and occupational therapist (2) Pneumonia Qualifiers: Pneumonia type: due to unspecified organism Laterality: unspecified laterality Lung location: unspecified part of lung Qualified Code(s): J18.9 - Pneumonia, unspecified organism (5) Anemia Qualifiers: Anemia type: unspecified type Qualified Code(s): D64.9 - Anemia, unspecified (8) Dementia Qualifiers: Dementia type: unspecified type Dementia behavioral disturbance: without behavioral disturbance Qualified Code(s): F03.90 - Unspecified dementia without behavioral disturbance - Current Meds Current Meds: Current Medications Generic Name Dose Route Start Last Admin Trade Name Freq PRN Reason Stop Dose Admin Ferrous Gluconate 324 mg 11/10/20 09:00 11/10/20 08:16 Ferrous Gluconate 324 Mg Tablet PO 324 mg BID ANNA Administration Furosemide 20 mg 11/09/20 09:00 11/10/20 13:44 Furosemide 20 Mg/2 Ml Vial IVP 20 mg BIDDIURETIC ANNA Administration Azithromycin 500 mg/ Sodium 250 mls @ 250 mls/hr 11/09/20 09:00 11/10/20 12:05 Chloride IV 11/11/20 09:59 Infused DAILY ANNA Infusion Ceftriaxone Sodium 2 gm/ 100 mls @ 200 mls/hr 11/09/20 09:00 11/10/20 09:18 Sodium Chloride IV 11/13/20 08:59 Infused DAILY ANNA Infusion Insulin Aspart 1 - 9 unit 11/08/20 21:00 11/10/20 13:14 Insulin Aspart 300 Unit/3 Ml Pen SUBQ Not Given 0800,1200,1700,2100 ANNA Protocol Mineral Oil 1 applic 11/09/20 10:31 11/09/20 13:42 Min Oil/Dimethicon/Coconut Oil 92 Gm Tube TOP 1 applic PRN PRN Administration Skin Care Pantoprazole Sodium 40 mg 11/10/20 08:00 11/10/20 08:17 Pantoprazole 40 Mg Vial IVP 40 mg QDAC ANNA Administration Saccharomyces Boulardii 250 mg 11/09/20 17:00 11/10/20 08:16 Saccharomyces Boulardii 250 Mg Capsule PO 250 mg BIDWM ANNA Administration Sodium Chloride 10 ml 11/08/20 16:57 11/10/20 13:44 Sodium Chloride Flush 0.9% 10 Ml Syringe IVP 10 ml PRN PRN Administration NEEDED PER PROVIDER ORDERS Sodium Chloride 10 ml 11/08/20 17:00 11/10/20 08:17 Sodium Chloride Flush 0.9% 10 Ml Syringe IVP 10 ml 0100,0900,1700 ANNA Administration - Lab Result Fish Bone Diagrams: 11/10/20 12:43 11/10/20 04:12 - Additional Planning My Orders: My Active Orders 11/09/20 16:56 Echo Transthoracic Complete [ECHO] Stat 11/09/20 17:00 Saccharomyces Boulardii [Florastor] 250 mg PO BIDWM 11/10/20 General Surgery Consult [CONS] Routine Clinical Swallow Evaluation [ST] Routine 11/10/20 08:00 Pantoprazole [Protonix] 40 mg IVP QDAC 11/10/20 09:00 Ferrous Gluconate [Fergon] 324 mg PO BID 11/10/20 Dinner Soft Mechanical Diet [DIET] 11/11/20 05:00 BMP - BASIC METABOLIC PANEL [CHEM] DAILYLAB BNP - B-NATRIURETIC PEPTIDE [IAI] DAILYLAB CBC - COMP BLD CT W/AUTO DIFF [HEME] DAILYLAB CRP - C-REACTIVE PROTEIN [CHEM] DAILYLAB 11/12/20 05:00 BMP - BASIC METABOLIC PANEL [CHEM] DAILYLAB BNP - B-NATRIURETIC PEPTIDE [IAI] DAILYLAB CBC - COMP BLD CT W/AUTO DIFF [HEME] DAILYLAB CRP - C-REACTIVE PROTEIN [CHEM] DAILYLAB 11/13/20 05:00 BMP - BASIC METABOLIC PANEL [CHEM] DAILYLAB BNP - B-NATRIURETIC PEPTIDE [IAI] DAILYLAB CBC - COMP BLD CT W/AUTO DIFF [HEME] DAILYLAB CRP - C-REACTIVE PROTEIN [CHEM] DAILYLAB 11/14/20 05:00 CRP - C-REACTIVE PROTEIN [CHEM] DAILYLAB Subjective - Subjective Nursing Reports: No Complaints Objective Vital Signs: Vital Signs - 24 hr 11/09/20 11/09/20 11/10/20 18:03 21:00 01:00 Temperature 36.4 C L 36.6 C 36.7 C Heart Rate [ 61 64 74 Brachial] Respiratory 14 18 18 Rate Blood Pressure 120/60 127/61 110/68 [Right Brachial artery] O2 Saturation 94 94 92 11/10/20 11/10/20 11/10/20 04:15 08:00 12:00 Temperature 36.7 C 37.0 C 36.3 C L Heart Rate [ 79 82 80 Brachial] Respiratory 18 16 18 Rate Blood Pressure 119/74 154/96 H 128/87 H [Right Brachial artery] O2 Saturation 92 97 92 11/10/20 16:05 Temperature 36.4 C L Heart Rate [ 68 Brachial] Respiratory 18 Rate Blood Pressure 131/63 H [Right Brachial artery] O2 Saturation 95 Oxygen O2 Source Room air I&O (Last 24 Hrs): Intake and Output Totals x24h 11/08/20 11/09/20 11/10/20 23:59 23:59 23:59 Intake Total 2550 2180 1173.333 Balance 2550 2180 1173.333 General: Alert, No acute distress HEENT: Atraumatic Neck: Supple Lymphatic: no adenopathy Neuro: Alert, Non Focal Cardiovascular: Regular rate, Normal S1, Normal S2 Respiratory: Chest non-tender, No respiratory distress Abdomen: Normal bowel sounds, Soft, No tenderness Extremities: Normal pulses - Results Results: Laboratory Results WBC 7.7 x10^3/uL (4.8-10.8) 11/10/20 04:12 RBC 3.09 10^6/uL (4.70-6.10) L 11/10/20 04:12 Hgb 10.0 g/dL (14.0-18.0) L 11/10/20 12:43 Hct 33.6 % (42.0-52.0) L 11/10/20 12:43 MCV 92.9 fL (80.0-94.0) 11/10/20 04:12 MCH 28.2 pg (27.0-31.0) 11/10/20 04:12 MCHC 30.3 g/dL (32.0-36.0) L 11/10/20 04:12 RDW 13.4 % (12.0-15.0) 11/10/20 04:12 Plt Count 290 10^3/uL (130-450) 11/10/20 04:12 MPV 9.2 fL (7.4-11.4) 11/10/20 04:12 Reticulocyte % (Auto) 0.98 % (0.5-2.3) 11/09/20 04:07 Neut # (Auto) 6.3 10^3/uL (1.5-6.6) 11/10/20 04:12 Lymph # (Auto) 0.7 10^3/uL (1.5-3.5) L 11/10/20 04:12 [place] # (Auto) 0.6 10^3/uL (0.0-1.0) 11/10/20 04:12 Eos # (Auto) 0.1 10^3/uL (0.0-0.7) 11/10/20 04:12 Baso # (Auto) 0.0 10^3/uL (0.0-0.1) 11/10/20 04:12 Absolute Nucleated RBC 0.00 x10^3/uL 11/10/20 04:12 Total Counted 100 11/09/20 04:07 Band Neuts % (Manual) 7 % (0-10) 11/09/20 04:07 Abnorm Lymph % (Manual) 0 % 11/09/20 04:07 Nucleated RBC % 0.0 /100WBC 11/10/20 04:12 Neutrophils # (Manual) 8.8 10^3/uL (1.5-6.6) H 11/09/20 04:07 Lymphocytes # (Manual) 0.4 10^3/uL (1.5-3.5) L 11/09/20 04:07 Monocytes # (Manual) 0.5 10^3/uL (0.0-1.0) 11/09/20 04:07 Eosinophils # (Manual) 0.0 10^3/uL (0-0.7) 11/09/20 04:07 Basophils # (Manual) 0.0 10^3/uL (0-0.1) 11/09/20 04:07 Differential Comment MANUAL DIFFERENTIAL 11/09/20 04:07 Platelet Estimate NORMAL (130-450,000) (NORMAL) 11/09/20 04:07 RBC Morph Micro Appear 1+ HYPOCHROMASIA (NORMAL) 11/09/20 04:07 Absolute Retic 0.029 10^6/uL (0.020-0.110) 11/09/20 04:07 VBG pH 7.516 (7.31-7.41) H 11/08/20 15:36 VBG pCO2 35.8 mmHg (41-51) L 11/08/20 15:36 VBG pO2 70.6 mmHg (25-47) H 11/08/20 15:36 VBG HCO3 28.3 mmol/L (23-28) H 11/08/20 15:36 VBG Total CO2 29.4 mmol/L (24-29) H 11/08/20 15:36 VBG O2 Saturation 95.5 % (60-80) H 11/08/20 15:36 VBG Base Excess 5.2 mmol/L (-2 - +2) H 11/08/20 15:36 Sodium 136 mmol/L (135-145) 11/10/20 04:12 Potassium 2.8 mmol/L (3.5-5.0) L 11/10/20 04:12 Chloride 94 mmol/L (101-111) L 11/10/20 04:12 Carbon Dioxide 31 mmol/L (21-32) 11/10/20 04:12 Anion Gap 11.0 (6-13) 11/10/20 04:12 BUN 41 mg/dL (6-20) H 11/10/20 04:12 Creatinine 1.2 mg/dL (0.6-1.2) 11/10/20 04:12 Estimated GFR (MDRD) 58 (>89) L 11/10/20 04:12 Glucose 75 mg/dL (70-100) 11/10/20 04:12 Estimat Average Glucose 140 mg/dL (70-100) H 11/08/20 19:12 Hemoglobin A1c % 6.5 % (4.27-6.07) H 11/08/20 19:12 Lactic Acid 1.9 mmol/L (0.5-2.2) 11/08/20 21:51 Calcium 8.5 mg/dL (8.5-10.3) 11/10/20 04:12 Magnesium 1.8 mg/dL (1.7-2.8) 11/09/20 04:07 Iron < 6 ug/dL (45-182) L 11/09/20 04:07 TIBC 178 ug/dL (250-450) L 11/09/20 04:07 Transferrin 127 mg/dL (180-329) L 11/09/20 04:07 Ferritin 340.9 ng/mL (23.9-336.2) H 11/09/20 04:07 Total Bilirubin 0.2 mg/dL (0.2-1.0) 11/08/20 15:36 AST 18 IU/L (10-42) 11/08/20 15:36 ALT < 10 IU/L (10-60) L 11/08/20 15:36 Alkaline Phosphatase 56 IU/L (42-121) 11/08/20 15:36 Lactate Dehydrogenase 157 IU/L (91-225) 11/09/20 04:07 Troponin I High Sens 34.9 ng/L (2.3-19.7) H* 11/08/20 21:51 C-Reactive Protein 19.6 mg/dL (0-1.0) H 11/10/20 04:12 B-Natriuretic Peptide 738 pg/mL (5-100) H 11/10/20 04:12 Total Protein 7.3 g/dL (6.7-8.2) 11/08/20 15:36 Albumin 2.8 g/dL (3.2-5.5) L 11/08/20 15:36 Globulin 4.5 g/dL (2.1-4.2) H 11/08/20 15:36 Albumin/Globulin Ratio 0.6 (1.0-2.2) L 11/08/20 15:36 Vitamin B12 433 pg/mL (180-914) 11/09/20 04:07 Urine Color YELLOW 11/08/20 17:25 Urine Clarity CLEAR (CLEAR) 11/08/20 17:25 Urine pH 5.0 PH (5.0-7.5) 11/08/20 17:25 Ur Specific [place] 1.025 (1.002-1.030) 11/08/20 17:25 Urine Protein TRACE mg/dL (NEGATIVE) 11/08/20 17:25 Urine Glucose (UA) NEGATIVE mg/dL (NEGATIVE) 11/08/20 17:25 Urine Ketones NEGATIVE mg/dL (NEGATIVE) 11/08/20 17:25 Urine Occult Blood NEGATIVE (NEGATIVE) 11/08/20 17:25 Urine Nitrite NEGATIVE (NEGATIVE) 11/08/20 17:25 Urine Bilirubin NEGATIVE (NEGATIVE) 11/08/20 17:25 Urine Urobilinogen 0.2 (NORMAL) E.U./dL (NORMAL) 11/08/20 17:25 Ur Leukocyte Esterase NEGATIVE (NEGATIVE) 11/08/20 17:25 Urine RBC 0-5 /HPF (0-5) 11/08/20 17:25 Urine WBC 0-3 /HPF (0-3) 11/08/20 17:25 Ur Squamous Epith Cells FEW Squamous (<= Few) 11/08/20 17:25 Amorphous Sediment Moderate /LPF 11/08/20 17:25 Urine Bacteria Rare /HPF (None Seen) 11/08/20 17:25 Urine Casts 0-2 Hyaline Casts /LPF 11/08/20 17:25 Urine Mucus Few Strands 11/08/20 17:25 Urine Culture Comments NOT INDICATED 11/08/20 17:25 Nasal Adenovirus (PCR) NOT DETECTED 11/08/20 16:57 Nasal B. parapertussis DNA (PCR) NOT DETECTED 11/08/20 16:57 Nasal Coronavir 229E PCR NOT DETECTED 11/08/20 16:57 Nasal Coronavir HKU1 PCR NOT DETECTED 11/08/20 16:57 Nasal Coronavir NL63 PCR NOT DETECTED 11/08/20 16:57 Nasal Coronavir OC43 PCR NOT DETECTED 11/08/20 16:57 Nasal Enterovir/Rhinovir PCR NOT DETECTED 11/08/20 16:57 Nasal Influenza B PCR NOT DETECTED 11/08/20 16:57 Nasal Influenza A PCR NOT DETECTED 11/08/20 16:57 Nasal Parainfluen 1 PCR NOT DETECTED 11/08/20 16:57 Nasal Parainfluen 2 PCR NOT DETECTED 11/08/20 16:57 Nasal Parainfluen 3 PCR NOT DETECTED 11/08/20 16:57 Nasal Parainfluen 4 PCR NOT DETECTED 11/08/20 16:57 Nasal RSV (PCR) NOT DETECTED 11/08/20 16:57 Nasal B.pertussis DNA PCR NOT DETECTED 11/08/20 16:57 Nasal C.pneumoniae (PCR) NOT DETECTED 11/08/20 16:57 Kalyan Human Metapneumo PCR NOT DETECTED 11/08/20 16:57 Nasal M.pneumoniae (PCR) NOT DETECTED 11/08/20 16:57 Nasal SARS-CoV-2 (PCR) NOT DETECTED 11/08/20 16:57 Stl Occult Blood (IFOB) POSITIVE (NEGATIVE) A 11/08/20 13:20 Urine Opiates Screen NEGATIVE (NEGATIVE) 11/08/20 17:25 Ur Oxycodone Screen NEGATIVE (NEGATIVE) 11/08/20 17:25 Urine Methadone Screen NEGATIVE (NEGATIVE) 11/08/20 17:25 Ur Propoxyphene Screen NEGATIVE (NEGATIVE) 11/08/20 17:25 Ur Barbiturates Screen NEGATIVE (NEGATIVE) 11/08/20 17:25 Ur Tricyclics Screen NEGATIVE (NEGATIVE) 11/08/20 17:25 Ur Phencyclidine Scrn NEGATIVE (NEGATIVE) 11/08/20 17:25 Ur Amphetamine Screen NEGATIVE (NEGATIVE) 11/08/20 17:25 U Methamphetamines Scrn NEGATIVE (NEGATIVE) 11/08/20 17:25 U Benzodiazepines Scrn NEGATIVE (NEGATIVE) 11/08/20 17:25 Urine Cocaine Screen NEGATIVE (NEGATIVE) 11/08/20 17:25 U Cannabinoids Screen NEGATIVE (NEGATIVE) 11/08/20 17:25 Ethyl Alcohol < 5.0 mg/dL 11/08/20 15:36 - Procedures Procedures: Procedures EXCISION OF ASCENDING COLON, ENDO, DIAGN (04/17/18) EXCISION OF ASCENDING COLON, PERC ENDO APPROACH (05/13/18) EXCISION OF DESCENDING COLON, ENDO (04/17/18) EXCISION OF DUODENUM, ENDO, DIAGN (04/17/18) EXCISION OF RECTUM, ENDO (04/17/18) EXCISION OF SIGMOID COLON, ENDO (04/17/18) INSERT VAD RESERVOIR IN CHEST SUBCU/FASCIA, PERC (07/14/18) INSERTION OF INFUSION DEV INTO L SUBCLAV VEIN, PERC APPROACH (07/14/18) INSPECTION OF LOWER INTESTINAL TRACT, ENDO (08/25/19) Sepsis Event Note (H) - Evaluation Current Stage of Sepsis: Sepsis Possible source of Sepsis: positive: Pulmonary - Sepsis Criteria Sepsis Criteria: Respiratory: Increasing oxygen requirements, Metabolic: lactate > 2 mmol/L ABX Reporting Has patient been on IV antibiotics over the past 48 hours?: Yes Current Medications - Current Medications Current Medications: Active Medications Acetaminophen (Acetaminophen 325 Mg Tablet) 650 mg PO Q4HR PRN PRN Reason: Pain 1 to 4 Ferrous Gluconate (Ferrous Gluconate 324 Mg Tablet) 324 mg PO BID [facility] Last Admin: 11/10/20 08:16 Dose: 324 mg Documented by: Furosemide (Furosemide 20 Mg/2 Ml Vial) 20 mg IVP BIDDIURETIC [facility] Last Admin: 11/10/20 13:44 Dose: 20 mg Documented by: Azithromycin 500 mg/ Sodium (Chloride) 250 mls @ 250 mls/hr IV DAILY [facility] Stop: 11/11/20 09:59 Last Infusion: 11/10/20 12:05 Dose: Infused Documented by: Ceftriaxone Sodium 2 gm/ (Sodium Chloride) 100 mls @ 200 mls/hr IV DAILY [facility] Stop: 11/13/20 08:59 Last Infusion: 11/10/20 09:18 Dose: Infused Documented by: Insulin Aspart (Insulin Aspart 300 Unit/3 Ml Pen) 1 - 9 unit SUBQ 0800,1200,1700,2100 [facility]; Protocol Last Admin: 11/10/20 13:14 Dose: Not Given Documented by: Mineral Oil (Min Oil/Dimethicon/Coconut Oil 92 Gm Tube) 1 applic TOP PRN PRN PRN Reason: Skin Care Last Admin: 11/09/20 13:42 Dose: 1 applic Documented by: Ondansetron HCl (Ondansetron 4 Mg/2 Ml Vial) 4 mg IVP Q6HR PRN PRN Reason: Nausea / Vomiting Pantoprazole Sodium (Pantoprazole 40 Mg Vial) 40 mg IVP QDAC [facility] Last Admin: 11/10/20 08:17 Dose: 40 mg Documented by: Saccharomyces Boulardii (Saccharomyces Boulardii 250 Mg Capsule) 500 mg PO BIDWM [facility] Sodium Chloride (Sodium Chloride Flush 0.9% 10 Ml Syringe) 10 ml IVP PRN PRN PRN Reason: NEEDED PER PROVIDER ORDERS Last Admin: 11/10/20 13:44 Dose: 10 ml Documented by: Sodium Chloride (Sodium Chloride Flush 0.9% 10 Ml Syringe) 10 ml IVP 0100,0900,1700 [facility] Last Admin: 11/10/20 08:17 Dose: 10 ml Documented by: No Known Home Medications 11/10/20
[2020-11-11] MEDS: PANTOPRAZOLE 40 MG VIAL IVP SCH (06:13)
[2020-11-11] MEDS: FUROSEMIDE 20 MG TABLET PO SCH ×2 (06:13→13:42)
[2020-11-11] MEDS: SACCHAROMYCES BOULARDII 250 MG CAPSULE PO SCH (08:44)
[2020-11-11] MEDS: FERROUS GLUCONATE 324 MG TABLET PO SCH (08:44)
[2020-11-11] MEDS: cefTRIAXone 2 GM in SODIUM CHLORIDE 0.9% MINIBAG 100 ML IV SCH (08:45)
[2020-11-11 08:56] LABS: BASOPHILS % (AUTO) 0.3 %; EOSINOPHILS # (AUTO) 0.1 10^3/uL (0.0-0.7); EOSINOPHILS % (AUTO) 1.3 %; HCT - HEMATOCRIT 31.8 % (42.0-52.0); HGB - HEMOGLOBIN 9.9 g/dL (14.0-18.0); LYMPHOCYTES # (AUTO) 0.6 10^3/uL (1.5-3.5); MEAN CORPUSCULAR HEMOGLOBIN 28.3 pg (27.0-31.0); MEAN CORPUSCULAR HGB CONC 31.1 g/dL (32.0-36.0); MEAN CORPUSCULAR VOLUME 90.9 fL (80.0-94.0); MEAN PLATELET VOLUME 9.2 fL (7.4-11.4); MONOCYTES # (AUTO) 0.7 10^3/uL (0.0-1.0); MONOCYTES % (AUTO) 10.6 %; NEUTROPHILS # (AUTO) 5.4 10^3/uL (1.5-6.6); NEUTROPHILS % (AUTO) 78.5 %; PLT - PLATELET COUNT 375 10^3/uL (130-450); RED CELL DISTRIBUTION WIDTH 13.3 % (12.0-15.0); WHITE BLOOD COUNT 6.9 x10^3/uL (4.8-10.8)
[2020-11-11] MEDS: INSULIN ASPART 300 UNIT/3 ML PEN SUBQ SCH ×2 (09:05→13:37)
[2020-11-11] MEDS: SODIUM CHLORIDE FLUSH 0.9% 10 ML SYRINGE IVP SCH (09:06)
[2020-11-11] MEDS: AZITHROMYCIN INJ 500 MG in SODIUM CHLORIDE 0.9% 250 ML IV SCH (09:14)
[2020-11-11 09:15] LABS: CALCIUM 8.9 mg/dL (8.5-10.3); CRP - C-REACTIVE PROTEIN 17.1 mg/dL (0-1.0); POTASSIUM 3.7 mmol/L (3.5-5.0)
--- NOTE | 2020-11-11 11:49 | Discharge Plan ---
"Discharge Plan for SNF / [facility] - Discharge Plan And Transition Orders Problem Reviewed?: Yes Disposition: 03 SNF DC/Xfer Condition: Stable Allergies and Adverse Reactions: Allergies Allergy/AdvReac Type Severity Reaction Status Date / Time Penicillins Allergy Unknown Verified 11/08/20 15:10 Health Concerns: pneumonia, pulmonary edema/fluid overload, colon cancer with incomplete treatment, diabetes. Plan of Treatment: pt is prescribed Keflex to finish the treatment course for his pneumonia. pt is prescribed Lasix and potassium pill for his pulmonary edema. pt has hx of colon cancer with incomplete treatment, and iron deficiency anemia. pt's HGB is increased and stable, no more GI bleed. pt may have out-pt Colonoscopy and out-pt oncologist consult as well. pt is prescribed iron pill. pt's A1C is 6.5, and his glucose is good control in hospital, no medication or insulin is prescribed for him at this time. Care Goals: stabilization and improvement of pt's medical conditions. Assessment: Discussed the care plan with pt's daughter before, answered her questions. she understood. - SNF / [facility]IOR [facility]IV[facility] Transition Orders Admit to (Facility): [facility] Under the care of (Name): Dr. Aidan Edouard Discharge Diagnosis: respiratory failure with hypoxia(resolved), pneumonia, pulmonary edema, anemia, hx of colon cancer, diabetes, CKD, Dementia, weakness Medicare Certification Statement: I certify that Post Hospital residential care is medically necessary on a continuing basis for any of the conditions for which she/he is receiving care during hospitalization. Notify PCP of admission and forward orders to primary provider for signature. Weight on admission and: Daily Call PCP immediately if weight increases by: 2 kg Other Notification Orders: Call PCP immediately if patient develops dyspnea, chest pain/tightness or edema. House Bowel Program: Yes Additional Bowel Program Orders: If no BM after 2 days, nurse may give M.O.M. 30ml PO PRN and/or ducolax Supp 1 KS and/or LISBETH 250mg P.O., and/or senna 1-2 tabs PO. On day 3 nurse may give repeat above order until residents constipation is resolved. Annual Influenza Vaccine (between Apr 12 and November 09): Yes Two-step PPD per [facility] [phone] or approved exception documents: Yes Treatments & Other Orders: pt is prescribed Keflex to finish the treatment course for his pneumonia. pt is prescribed Lasix and potassium pill for his pulmonary edema. pt has hx of colon cancer with incomplete treatment, and iron deficiency anemia. pt's HGB is increased and stable, no more GI bleed. pt may have out-pt Colonoscopy and out-pt oncologist consult as well. pt is prescribed iron pill. pt's A1C is 6.5, and his glucose is good control in hospital, no medication or insulin is prescribed for him at this time. Medication Orders: PLEASE REFER TO THE DISCHARGE MEDICATION LIST. Insulin Orders?: No - Medications New Prescriptions: Ferrous Gluconate [Fergon] 324 mg PO DAILY #30 tablet Saccharomyces Boulardii [Florastor] 250 mg PO BIDWM #10 cap cephALEXin [Keflex] 250 mg PO Q6H #20 cap Potassium Chloride 10 meq PO DAILY #15 tab - Diet Type: Geriatric Texture: Mech soft Liquids: Thin May have monthly special meal: Yes - Therapies | Activity Therapy: Evaluation | Treat if indicated: PT, OT Rehabilitation Potential: Maximize functional status Activity: Activity as Tolerated"
--- NOTE | 2020-11-11 12:34 | DISCHARGE SUMMARY ---
Discharge Summary Admit Date: 11/08/20 Discharge Date: 11/11/20 Discharging Provider: Sal Schneider Primary Care Provider: Watson Dey Condition at Discharge: Stable Discharge Disposition: SNF DC/Xfer Discharge Facility Name: [facility] - DIAGNOSES Discharge Diagnoses with Status of Each Condition: (1) Respiratory failure with hypoxia resolved. pt has 96% sats on room air, patient has no acute respiratory distr ess. (2) Pneumonia improved. pt is prescribed Keflex to finish the treatment course (3) Pulmonary edema improved. pt has no respiratory distress with 96% sats on room air. pt is prescribed Lasix and potassium pill (4) Anemia HGB increased significantly. pt is prescribed iron pill. pt was found severe iron deficiency anemia. (5) Diabetes A1C is 6.5%. pt's glucose is good controlled in the hospital. no meds is prescribed for pt, continue diet control, followup with PCP. (6) CKD (chronic kidney disease) creatinine is 1.0. (7) Dementia As Patient has history of dementia, stable (8) Generalized weakness d/c to SNF, continue PT/OT (9)hx of colon cancer pt has hx of colon cancer with incomplete treatment. pt may follow up with out- pt oncologist (10)GI bleed pt has no more GI bleed. HGB significantly increased. pt may followup with out- pt for endoscopy (11)dementia stable as his hx (12)decubitus pressure ulcer stage I pt has stage I decubitus pressure ulcer. continue nurse skin care in SNF. - HPI History of Present Illness: This is a 80-year-old gentleman with a past medical history significant of diabetes, dementia, colon cancer with incomplete treatment, chronic kidney disease. He is alert and he can followup commands but he is a poor historian, unknown hospital name, date and time. Pt is poor historian. pt's daughter is at the bedside.He was brought by EMS because he was found to have so weak that he has not gotten out of bed in the last 4 days. Pt is living alone but family was Reported to check pt once or twice per day. pt is living at [facility]. pt's daughter report he has no home medications. pt was checked by his PCP at 08/2019. pt has slight elevated glucose level but was not diagnosis of diabetes. she also report pt had significant cough once when pt swallowed food in the home. Patient denies chest pain. Patient is afebrile, normal range of blood pressure in ER but patient's oxygen saturation dropped quickly then patient needed oxygen support. Chest x-ray show moderate bilaterally edema plus pneumon ia. Routine laboratory tests that show BNP is over 800, Troponin is 23. Hemoglobin is 8.7, glucose is 214. Given above medical condition, medical team was consulted for admission. Discussed the care goal with the patient's daughter, patient's daughter confirm patient is DNR. - HOSPITAL COURSE Hospital Course: pt was admitted for generalized weakness. pt was found to have pneumonia and pulmonary edema, respiratory failure with hypoxia. pt was treated with antibiotics, diuretics, and PT/OT. After pt was treated, pt had clinically great improvement. PT/OT recommended pt to SNF. pt was d/c to [facility] SNF. - ALLERGIES Allergies/Adverse Reactions: Allergies Allergy/AdvReac Type Severity Reaction Status Date / Time Penicillins Allergy Unknown Verified 11/08/20 15:10 - MEDICATIONS Home Medications: Ambulatory Orders Medication Instructions Recorded Confirmed Ferrous Gluconate [Fergon] 324 mg PO DAILY #30 tablet 11/11/20 Furosemide [Lasix] 20 mg PO DAILY #15 tablet 11/11/20 Potassium Chloride 10 meq PO DAILY #15 tab 11/11/20 Saccharomyces Boulardii [Florastor] 250 mg PO BIDWM #10 cap 11/11/20 cephALEXin [Keflex] 250 mg PO Q6H #20 cap 11/11/20 - PHYSICAL EXAM AT DISCHARGE General Appearance: positive: No acute distress, Alert. negative: Lethargic Eyes Bilateral: positive: Normal inspection, PERRL, No lid inflammation ENT: positive: ENT inspection nml, No signs of dehydration. negative: Purulent nasal drainage, Dry mucous membranes Neck: positive: Nml inspection, Trachea midline. negative: Thyromegaly, Tracheal deviation Respiratory: positive: Chest non-tender, No respiratory distress. negative: Wheezes, Rales Cardiovascular: positive: Regular rate & rhythm, No murmur. negative: Tachycardia, Bradycardia, Systolic murmur, Diastolic murmur Peripheral Pulses: positive: 2+ Abdomen: positive: Non-tender, Nml bowel sounds, No distention. negative: Tenderness Back: positive: Nml inspection Skin: positive: Warm, Dry, Other (pt has stage I decubitus ulcer). negative: Cyanosis, Diaphoresis Extremities: positive: Non-tender. negative: Calf tenderness Neurologic/Psychiatric: positive: Sensation nml, Mood/affect nml. negative: Oriented x3, Weakness, Sensory loss, Facial droop, Slurred/abnml speech - LABS Result Diagrams: 11/11/20 08:24 11/11/20 08:24 - SEPSIS Current Stage of Sepsis: Sepsis Possible source of Sepsis: Pulmonary Sepsis Criteria: Respiratory: Increasing oxygen requirements, Metabolic: lactate > 2 mmol/L - FOLLOW UP Follow Up: pt is prescribed Keflex to finish the treatment course for his pneumonia. pt is prescribed Lasix and potassium pill for his pulmonary edema. pt has hx of colon cancer with incomplete treatment, and iron deficiency anemia. pt's HGB is increased and stable, no more GI bleed. pt may have out-pt Colonoscopy and out-pt oncologist consult as well. pt is prescribed iron pill. pt's A1C is 6.5, and his glucose is good control in hospital, no medication or insulin is prescribed for him at this time. continue nurse skin care for pt - TIME SPENT Time Spent in Discharge (Minutes): 30
[2020-11-11 13:21] VITALS: BP 116/88
== END 2020-11-11 14:30 | DRG 871 ==
LOC: EDUNIT# → SUPCPDRO 14:58 → ED 14:58 → MS3 16:57
PROVIDERS: ADMIT Nurse Practitioner Gerontology; ATTEND Nurse Practitioner Gerontology
DX: A41.9 Sepsis, unspecified organism (principal); I50.9 Heart failure, unspecified; J18.9 Pneumonia, unspecified organism; R62.7 Adult failure to thrive; Z68.1 Body mass index [BMI] 19.9 or less, adult; J96.01 Acute respiratory failure with hypoxia; J81.1 Chronic pulmonary edema; K92.2 Gastrointestinal hemorrhage, unspecified; R65.20 Severe sepsis without septic shock; I12.9 Hypertensive chronic kidney disease with stage 1 through stage 4 chronic kidney disease, or unspecified chronic kidney disease; N18.9 Chronic kidney disease, unspecified; E11.22 Type 2 diabetes mellitus with diabetic chronic kidney disease; E11.65 Type 2 diabetes mellitus with hyperglycemia; F03.90 Unspecified dementia, unspecified severity, without behavioral disturbance, psychotic disturbance, mood disturbance, and anxiety; L89.151 Pressure ulcer of sacral region, stage 1; D50.9 Iron deficiency anemia, unspecified; E78.00 Pure hypercholesterolemia, unspecified; F32.9 Major depressive disorder, single episode, unspecified; Z20.822 Contact with and (suspected) exposure to COVID-19; R32 Unspecified urinary incontinence; I25.10 Atherosclerotic heart disease of native coronary artery without angina pectoris; Z79.899 Other long term (current) drug therapy; Z85.038 Personal history of other malignant neoplasm of large intestine; Z87.891 Personal history of nicotine dependence
CPT/HCPCS: 36415; 71045; 80048; 80053; 80306; 81001; 82274; 82607; 82728; 82803; 83036; 83540; 83605; 83615; 83735; 83880; 84466; 84484; 85014; 85018; 85025; 85045; 86140; 87040; 87631; 92610; 93005; 93306; 96361; 96374; 97161; 97166; 97530; 99281; 99285; A6250; A9270; G0480; J1650; J1815; J7120; 0202U; 80320; 87086

== ENCOUNTER 2020-11-15 14:20 | Outpatient (CLI) | payer MEDICARE, MEDICAID ==
--- NOTE | 2020-11-15 15:26 | XRAY Report ---
PROCEDURE: Chest 2 View X-Ray INDICATIONS: PNEUMONIA TECHNIQUE: 2 view(s) of the chest. COMPARISON: None. FINDINGS: Surgical changes and devices: None. Lungs and pleura: Poor inspiratory effort is seen. There is small left pleural effusion. Pulmonary va scular congestion and pulmonary edema is also noted. Underlying bilateral lower lobe patchy infiltrat es cannot be excluded. Mediastinum: Mediastinal contours are normal. Heart size is normal. Bones and chest wall: No suspicious bony abnormalities. Soft tissues appear unremarkable. IMPRESSION: Congestive changes and pulmonary edema. Cannot rule out underlying bilateral lower lobe patchy infiltrates. No gross pneumothorax. Small left pleural effusion. Reviewed by: Liban Kaba MD on 11/15/2020 3:25 PM PDT Approved by: Liban Kaba MD on 11/15/2020 3:25 PM PDT Station ID: [id number]
== END 2020-11-15 14:21 | disposition home or self-care (01) ==
LOC: DI 14:20
PROVIDERS: ATTEND Family Medicine
DX: J18.9 Pneumonia, unspecified organism (principal); J81.1 Chronic pulmonary edema; J90 Pleural effusion, not elsewhere classified

== ENCOUNTER 2020-11-17 11:24 | Outpatient (CLI) | payer MEDICARE, MEDICAID ==
[2020-11-17 12:43] LABS: BASOPHILS % (AUTO) 0.6 %; EOSINOPHILS # (AUTO) 0.1 10^3/uL (0.0-0.7); EOSINOPHILS % (AUTO) 0.8 %; HGB - HEMOGLOBIN 8.3 g/dL (14.0-18.0); LYMPHOCYTES # (AUTO) 0.6 10^3/uL (1.5-3.5); LYMPHOCYTES % (AUTO) 8.5 %; MEAN CORPUSCULAR HGB CONC 29.6 g/dL (32.0-36.0); MEAN CORPUSCULAR VOLUME 91.2 fL (80.0-94.0); MEAN PLATELET VOLUME 9.3 fL (7.4-11.4); MONOCYTES # (AUTO) 0.5 10^3/uL (0.0-1.0); MONOCYTES % (AUTO) 7.6 %; NEUTROPHILS # (AUTO) 5.8 10^3/uL (1.5-6.6); NEUTROPHILS % (AUTO) 82.1 %; PLT - PLATELET COUNT 509 10^3/uL (130-450); RED BLOOD COUNT 3.07 10^6/uL (4.70-6.10); RED CELL DISTRIBUTION WIDTH 14.1 % (12.0-15.0); WHITE BLOOD COUNT 7.1 x10^3/uL (4.8-10.8)
[2020-11-17 12:53] LABS: CALCIUM 8.9 mg/dL (8.5-10.3); CREATININE 0.9 mg/dL (0.6-1.2); POTASSIUM 3.3 mmol/L (3.5-5.0)
== END 2020-11-17 23:59 | disposition home or self-care (01) ==
LOC: LAB.R 11:24
DX: E11.29 Type 2 diabetes mellitus with other diabetic kidney complication (principal); D64.9 Anemia, unspecified
CPT/HCPCS: 80048; 85025